=== PATIENT | female | born 1935 | race African-American/Black ===

== ENCOUNTER 2020-10-20 09:55 | Outpatient (REF) | payer MEDICARE, SELFPAY ==
[2020-10-20 12:32] LABS: SARS COV2 IgG Negative (Negative)
== END 2020-10-20 09:56 | disposition home or self-care (01) ==
LOC: HO.HMGCLDS 09:55
PROVIDERS: PCP Internal Medicine; Visit Provider Internal Medicine
DX: Z01.84 Encounter for antibody response examination (principal)
CPT/HCPCS: 36415; 86769

== ENCOUNTER 2021-01-05 06:07 | Outpatient (REF) | payer MEDICARE, SELFPAY ==
[2021-01-05 11:48] LABS: Hematocrit 36.9 % (37-47); Mean Corpuscular HGB Conc 32.5 g/dl (31.0-35.0); Mean Corpuscular Volume 101.4 fL (80-98); Mean Platelet Volume 9.9 fL (9.4-12.3); Platelet Count 239 X10*3/uL (160-400); Red Blood Count 3.64 X10*6/uL (4.20-5.50); Red Cell Distribution Width 11.8 % (11.0-16.0); White Blood Count 3.5 X10*3/uL (4.8-10.8)
[2021-01-05 11:58] LABS: Alanine Aminotransferase 11 U/L (0-31); Albumin Level 4.3 g/dL (3.5-5.0); Alkaline Phosphatase 54 U/L (39-117); Anion Gap 12 (12-20); Aspartate Amino Transferase 16 U/L (5-31); Bilirubin Total 0.5 mg/dL (0.0-1.0); Blood Urea Nitrogen 21 mg/dL (9-16); Calcium 9.4 mg/dL (8.4-10.2); Carbon Dioxide 29 mmol/L (22-29); Chloride 105 mmol/L (96-108); Cholesterol 226 mg/dL; Estimated Glomerular Filt Rate > 60; Glucose Fasting 103 mg/dL (60-99); HDL Cholesterol 56 mg/dL; LDL Cholesterol Calculated 123 mg/dl; Potassium 4.7 mmol/L (3.3-5.1); Sodium 141 mmol/L (135-145); Total Protein 7.8 g/dL (6.5-8.0); Triglycerides 238 mg/dL
[2021-01-05 12:21] LABS: TSH reflex Free T4 1.46 uIU/mL (0.32-4.0)
[2021-01-05 12:48] LABS: Folate > 20.0 ng/mL (> or = 4.0); Vitamin B12 1016 pg/mL (200-900)
== END 2021-01-05 06:08 | disposition home or self-care (01) ==
LOC: HO.HMGCLDS 06:07
PROVIDERS: PCP Internal Medicine; Visit Provider Internal Medicine
DX: E03.9 Hypothyroidism, unspecified (principal); E78.5 Hyperlipidemia, unspecified; I10 Essential (primary) hypertension
CPT/HCPCS: 36415; 80053; 80061; 82607; 82746; 84443; 85027

== ENCOUNTER 2021-01-21 11:49 | Outpatient (REF) | payer MEDICARE, SELFPAY ==
--- NOTE | ~2021-01-21 | XR_ITS ---
EXAMINATION: XR KNEE AP STANDING CLINICAL INFORMATION: Bilateral knee pain COMPARISON: Previous x-ray September 2019 TECHNIQUE: AP bilateral standing view of the knees was obtained. FINDINGS: There is mild varus angulation at the right knee joint. There is bilateral medial femoral tibial joint space narrowing, right greater than left. Soft tissues are unremarkable. XR/XR knee standing BI IMPRESSION: Degenerative changes at the medial femoral tibial joints, right greater than left and mild varus angulation on the right similar to September 2019 exam.
== END 2021-01-21 11:50 | disposition home or self-care (01) ==
LOC: HO.HMGCX 11:49
PROVIDERS: PCP Internal Medicine; Visit Provider Internal Medicine
DX: M25.561 Pain in right knee (principal); M25.562 Pain in left knee
CPT/HCPCS: 73565

== ENCOUNTER 2021-08-14 11:57 | Outpatient (REF) | payer MEDICARE, SELFPAY ==
--- NOTE | ~2021-08-14 | XR_ITS ---
EXAMINATION: XR CHEST CLINICAL INFORMATION: Cough. COMPARISON: Chest 05/21/2020 TECHNIQUE: 2 views of the chest were obtained. FINDINGS: The lungs are well-expanded and clear of acute process. The heart size and pulmonary vascularity is normal. There is mild spondylosis mid and lower dorsal spine. XR/XR chest 2V IMPRESSION: No acute cardiopulmonary process seen.
== END 2021-08-14 11:58 | disposition home or self-care (01) ==
LOC: HO.HMGCX 11:57
PROVIDERS: PCP Internal Medicine; Visit Provider Internal Medicine
DX: R05.9 Cough, unspecified (principal)
CPT/HCPCS: 71046

== ENCOUNTER 2021-08-14 14:13 | Outpatient (REF) | payer MEDICARE, SELFPAY ==
[2021-08-14 14:59] LABS: Influenza A PCR NEGATIVE (Negative); Influenza B PCR NEGATIVE (Negative); Resp Syncy Virus RNA Qual PCR NEGATIVE (Negative); SARS COV2 PCR INHOUSE NEGATIVE (Negative)
== END 2021-08-14 14:14 | disposition home or self-care (01) ==
LOC: HO.LNP 14:13
PROVIDERS: PCP Internal Medicine; Visit Provider Internal Medicine
DX: R05.9 Cough, unspecified (principal); Z20.822 Contact with and (suspected) exposure to COVID-19
CPT/HCPCS: 0241U

== ENCOUNTER 2021-08-18 08:31 | Outpatient (REF) | payer MEDICARE, SELFPAY ==
[2021-08-18 11:45] LABS: Hematocrit 35.7 % (37.0-47.0); Hemoglobin 11.4 g/dl (12.0-16.0); Mean Corpuscular HGB Conc 31.9 g/dl (31.0-35.0); Mean Corpuscular Hemoglobin 32.5 pg (27.0-33.0); Mean Corpuscular Volume 101.7 fL (80.0-98.0); Platelet Count 267 X10*3/uL (160-400); Red Blood Count 3.51 X10*6/uL (4.20-5.50); Red Cell Distribution Width 11.7 % (11.0-16.0); White Blood Count 3.7 X10*3/uL (4.8-10.8)
[2021-08-18 12:06] LABS: B Type Natriuretic Peptide 17 pg/mL (<100)
[2021-08-18 12:21] LABS: Alanine Aminotransferase 10 U/L (0-31); Alkaline Phosphatase 50 U/L (39-117); Anion Gap 11 (12-20); Aspartate Amino Transferase 14 U/L (5-31); Bilirubin Total 0.7 mg/dL (0.0-1.0); Blood Urea Nitrogen 14 mg/dL (9-16); Calcium 9.1 mg/dL (8.4-10.2); Carbon Dioxide 28 mmol/L (22-29); Chloride 106 mmol/L (96-108); Cholesterol 154 mg/dL; Estimated Glomerular Filt Rate > 60; Glucose Fasting 94 mg/dL (60-99); HDL Cholesterol 59 mg/dL; LDL Cholesterol Calculated 70 mg/dl; Potassium 4.2 mmol/L (3.3-5.1); Sodium 141 mmol/L (135-145); Total Protein 6.9 g/dL (6.5-8.0); Triglycerides 127 mg/dL
[2021-08-18 12:29] LABS: TSH reflex Free T4 1.71 uIU/mL (0.32-4.0)
== END 2021-08-18 08:32 | disposition home or self-care (01) ==
LOC: HO.HMGCLDS 08:31
PROVIDERS: PCP Internal Medicine; Visit Provider Internal Medicine
DX: E03.9 Hypothyroidism, unspecified (principal); E78.5 Hyperlipidemia, unspecified; I10 Essential (primary) hypertension; R05.9 Cough, unspecified
CPT/HCPCS: 36415; 80053; 80061; 83880; 84443; 85027

== ENCOUNTER 2022-08-24 13:10 | Outpatient (REF) | payer MEDICARE, SELFPAY ==
[2022-08-24 14:09] LABS: MANUAL DIFF FLAG NO
[2022-08-24 14:21] LABS: Basophils Percent Auto 1.4 % (0-2); Eosinophils Absolute Auto 0.1 X10*3/uL (0.0-0.4); Eosinophils Percent Auto 3.2 % (0-4); Hematocrit 35.7 % (37.0-47.0); Hemoglobin 11.5 g/dl (12.0-16.0); Lymphocytes Absolute Auto 1.3 X10*3/uL (1.2-4.9); Lymphocytes Percent Auto 48.4 % (20-40); Mean Corpuscular HGB Conc 32.2 g/dl (31.0-35.0); Mean Corpuscular Hemoglobin 31.9 pg (27.0-33.0); Mean Corpuscular Volume 98.9 fL (80.0-98.0); Mean Platelet Volume 9.8 fL (9.4-12.3); Monocytes Absolute Auto 0.3 X10*3/uL (0.1-1.2); Monocytes Percent Auto 9.4 % (2-11); Neutrophils Percent Auto 37.6 % (45-73); Platelet Count 228 X10*3/uL (160-400); Red Blood Count 3.61 X10*6/uL (4.20-5.50); Red Cell Distribution Width 11.9 % (11.0-16.0); White Blood Count 2.8 X10*3/uL (4.8-10.8)
[2022-08-24 15:00] LABS: Alanine Aminotransferase 10 U/L (0-31); Albumin Level 4.2 g/dL (3.5-5.0); Alkaline Phosphatase 50 U/L (39-117); Anion Gap 10 (12-20); Aspartate Amino Transferase 17 U/L (5-31); Bilirubin Total 0.5 mg/dL (0.0-1.0); Blood Urea Nitrogen 18 mg/dL (9-16); Carbon Dioxide 28 mmol/L (22-29); Chloride 110 mmol/L (96-108); Cholesterol 177 mg/dL; Estimated Glomerular Filt Rate > 60; Glucose Fasting 93 mg/dL (60-99); HDL Cholesterol 66 mg/dL; LDL Cholesterol Calculated 94 mg/dl; Potassium 4.5 mmol/L (3.3-5.1); Sodium 143 mmol/L (135-145); TSH reflex Free T4 0.84 uIU/mL (0.32-4.0); Triglycerides 89 mg/dL
== END 2022-08-24 13:11 | disposition home or self-care (01) ==
LOC: HO.HMGCLDS 13:10
PROVIDERS: PCP Internal Medicine; Visit Provider Internal Medicine
DX: E03.9 Hypothyroidism, unspecified (principal); E78.5 Hyperlipidemia, unspecified; I10 Essential (primary) hypertension
CPT/HCPCS: 36415; 80053; 80061; 84443; 85025

== ENCOUNTER 2023-02-07 23:45 | Emergency (ER) | payer MEDICARE, SELFPAY ==
[2023-02-07 23:50] VITALS: BP 154/90; BP 155/72; PULSE 74; PULSE 79; RESP 16; TEMP 36.5; O2SAT 100; O2SAT 97; BMI 24.0
--- NOTE | 2023-02-08 | ECG_ITS ---
Test Reason : DIZZINESS Blood Pressure : / mmHG Vent. Rate : 076 BPM Atrial Rate : 076 BPM P-R Int : 192 ms QRS Dur : 084 ms QT Int : 382 ms P-R-T Axes : 066 021 052 degrees QTc Int : 429 ms Normal sinus rhythm Normal ECG No previous ECGs available Referred By: Elier Elder Electronically Signed By:BRIGITTE RAJAN MD
--- NOTE | 2023-02-08 00:11 | ED_ITS ---
HPI - Dizziness General Chief Complaint: Dizziness Stated Complaint: Nausea with Vomiting after eating 1 hour ago Time Seen by Provider: 02/07/23 23:52 Source: patient Mode of arrival: EMS Limitations: no limitations History of Present Illness HPI Narrative: Patient with history of hypertension hyperlipidemia vertigo in the past was working outside in heat all day came home had dinner while sitting started feeling dizzy which she describes as spinning movement with tinnitus on the left ear distant get worse when she moves or sit up vomited 3 times. No chest pain or palpitation patient feels off-balance had history of similar episode in the past but milder did not drink much fluids when she was outside Related Data Home Medications Medication Instructions Recorded Confirmed cholecalciferol (vitamin D3) 125 125 mcg PO DAILY 01/01/21 09/17/22 mcg (5,000 unit) capsule coenzyme Q10 300 mg capsule (Co 300 mg PO DAILY 01/01/21 09/17/22 Q-10) krill oil PO .daily 01/01/21 09/17/22 lactobacillus combination no.8 PO DAILY 01/01/21 09/17/22 [Adult Probiotic] lutein PO DAILY and zeaxanthin vision 01/01/21 09/17/22 complex rhpfaoxq-bwu-rhull acid 300 1 tab PO DAILY 01/01/21 09/17/22 mcg-lycopene 600 mcg-lutein 300 mcg tablet (Centrum Silver Men) zinc acetate 50 mg (zinc) capsule 50 mg PO DAILY 01/01/21 09/17/22 (Galzin) glucosamine synergy PO 04/09/21 09/17/22 bimatoprost 0.01 % eye drops 1 drp ophthalmic (eye) QPM 08/31/21 09/17/22 (Lumigan) carboxymethylcellulose sodium 0.5 1 drp ophthalmic (eye) BID 08/31/21 09/17/22 % eye drops (Refresh Tears) levothyroxine 75 mcg tablet 75 mcg PO DAILY 08/31/21 09/17/22 (Synthroid) timolol maleate 0.5 % eye drops 1 drp ophthalmic (eye) DAILY 08/31/21 09/17/22 ashwagandha root extract 500 mg mg PO 03/08/22 09/17/22 capsule Previous Rx's Medication Instructions Recorded epinephrine 0.3 mg/0.3 mL 0.3 mg (0.3 mL) IM Q4H PRN 08/22/22 injection, auto-injector (EpiPen anaphylaxis #2 ea 2-Constantin) meloxicam 15 mg tablet 15 mg PO DAILY #10 tabs 09/17/22 amlodipine 2.5 mg tablet 2.5 mg PO DAILY #90 tabs 11/26/22 amlodipine 5 mg tablet 5 mg PO DAILY #90 tabs 11/26/22 rosuvastatin 5 mg tablet (Crestor) 5 mg PO DAILY #90 tabs 11/26/22 meclizine 25 mg tablet 25 mg PO TID PRN dizziness #20 tabs 02/08/23 Allergies Allergy/AdvReac Type Severity Reaction Status Date / Time amoxicillin [AMOXICILLIN] Allergy Mild RASH, hives Verified 09/17/22 10:22 rosuvastatin [Crestor] AdvReac Unknown myalgia Verified 09/17/22 10:22 Review of Systems Review of Systems: Yes all other systems are reviewed and are negative PMFSH Past Medical History Medical History Annual physical exam Anxiety Cough Female bladder prolapse HTN (hypertension) Hyperlipidemia Hypothyroidism Kidney cysts Knee pain, bilateral Left nephrolithiasis Liver cyst Lumbar radiculopathy Neutropenia Osteoarthritis Vertigo Social History Social History Housing: House Alcohol intake: current Alcohol intake frequency: 0-2 drinks per day Alcohol type: beer Patient Tobacco Use Status: Former Tobacco user Quit Date: years ago Years Smoked: 20 e-Cigarette/Vaping Use: Never Used Advance Directives: No Advance Directives Information Provided: Yes Current occupational status: retired Cognitive needs: No Hearing needs: No Vision needs: Yes Physical Exam Vital Signs: Vital Signs: Last Vital Signs Temp 97.7 F 02/07/23 23:50 Pulse 79 02/07/23 23:50 Resp 16 02/07/23 23:50 BP 155/72 H 02/07/23 23:50 Pulse Ox 100 02/07/23 23:50 O2 Del Method Room Air 02/07/23 23:50 BMI result Body Mass Index 24.0 Appearance: Alert. Oriented X3. No acute distress. Eyes: PERRLA, No Nystagmus ENT: Pharynx normal. Oral Mucosa dry Neck: Normal inspection. Neck supple. CVS: Normal heart rate and rhythm. Pulses normal. Respiratory: No respiratory distress. Equal air entry bilateral, no wheezing/rales/rhonchi Abdomen: Soft and nontender. Bowel sounds are present, no mass palpable, no CVA tenderness Skin: Skin warm and dry. Normal skin color. Normal skin turgor. Extremities: No lower extremity edema. No calf tenderness Neuro: Oriented X 3. No motor deficit. No sensory deficit.No cerebellar signs , cranial nerves II-XII intact Medications Administered Discontinued Medications Generic Name Dose Route Start Last Admin Trade Name Freq PRN Reason Stop Dose Admin Sodium Chloride 1,000 mls @ 999 mls/hr 02/08/23 00:10 02/08/23 00:18 Ns IV 02/08/23 01:10 999 mls/hr .Q1H1M ONE Administration Meclizine HCl 25 mg 02/08/23 00:10 02/08/23 00:18 Meclizine Hcl 25 Mg Tablet PO 02/08/23 00:11 25 mg ONCE ONE Administration Ondansetron HCl 4 mg 02/08/23 00:10 02/08/23 00:18 Ondansetron Hcl 4 Mg/2 Ml Vial IVPUSH 02/08/23 00:11 4 mg ONCE ONE Administration Medical Decision Making Medical Decision Making [facility] Narrative: Patient with benign positional vertigo and heat exhaustion improved after IV hydration and meclizine able to ambulate in the ER discharge patient home advised to follow with PCP patient has no signs of EXTENDER involvement Differential Diagnosis Heat exhaustion/minute/ Lab Data [facility] Lab Attestation statement: I reviewed the patient's lab results. 02/08/23 00:11 02/08/23 00:11 Labs: Lab Results 02/08/23 02/08/23 02/08/23 Range/Units 00:11 00:11 00:11 WBC 7.1 (4.8-10.8) X10*3/uL RBC 3.51 L (4.20-5.50) X10*6/uL Hgb 11.3 L (12.0-16.0) g/dl Hct 34.0 L (37.0-47.0) % MCV 96.9 (80.0-98.0) fL MCH 32.2 (27.0-33.0) pg MCHC 33.2 (31.0-35.0) g/dl RDW 11.9 (11.0-16.0) % Plt Count 198 (160-400) X10*3/uL MPV 9.2 L (9.4-12.3) fL Immature Gran % (Auto) 0.1 (0.0-0.4) % Neut % (Auto) 72.0 (45-73) % Lymph % (Auto) 16.6 L (20-40) % [place] % (Auto) 8.2 (2-11) % Eos % (Auto) 2.5 (0-4) % Baso % (Auto) 0.6 (0-2) % Lymph # (Auto) 1.2 (1.2-4.9) X10*3/uL [place] # (Auto) 0.6 (0.1-1.2) X10*3/uL Eos # (Auto) 0.2 (0.0-0.4) X10*3/uL Baso # (Auto) 0.0 (0.0-0.2) X10*3/uL Abs Immat Gran (auto) 0.01 (0.00-0.03) X10*3/uL Absolute Neuts (auto) 5.1 (2.0-8.3) x10*3/uL Absolute Nucleated RBC 0.000 (0.0-0.012) X10*3/uL Nucleated RBC % (auto) 0.0 (0.0-0.2) /100WBC Sodium 142 (135-145) mmol/L Potassium 3.7 (3.3-5.1) mmol/L Chloride 108 (96-108) mmol/L Carbon Dioxide 25 (22-29) mmol/L Anion Gap 13 (12-20) BUN 20 H (9-16) mg/dL Creatinine 0.84 (0.5-1.4) mg/dL Estim Creat Clear Calc 42.2 Estimated GFR > 60 Random Glucose 148 H (60-115) mg/dL Calcium 9.1 (8.4-10.2) mg/dL Total Bilirubin 0.4 (0.0-1.0) mg/dL AST 16 (5-31) U/L ALT 13 (0-31) U/L Alkaline Phosphatase 57 (39-117) U/L Total Creatine Kinase 166 H (26-140) U/L Troponin I High Sens < 2.7 (<3.5-17.0) ng/L Total Protein 7.1 (6.5-8.0) g/dL Albumin 4.1 (3.5-5.0) g/dL Independent Interpretation I performed an independent interpretation of an: EKG Interpretation: Normal sinus rhythm heart rate 76 beats per normal interval normal axis no acute ischemic changes impression normal EKG Discharge Plan Discharge Clinical Impression: Benign paroxysmal positional vertigo Patient Disposition: Home, Self-Care Instructions: Benign Paroxysmal Positional Vertigo (ED) Additional Instructions: Drink plenty of fluid Care and cautions as advised Meclizine for dizziness 1 tablet every 8 hours as needed Follow up with PCP Prescriptions: New meclizine 25 mg tablet 25 mg PO TID PRN (Reason: dizziness) Qty: 20 0RF No Action epinephrine [EpiPen 2-Constantin] 0.3 mg/0.3 mL auto-injector 0.3 mg IM Q4H PRN (Reason: anaphylaxis) Qty: 2 0RF rosuvastatin [Crestor] 5 mg tablet 5 mg PO DAILY Qty: 90 3RF amlodipine 2.5 mg tablet 2.5 mg PO DAILY Qty: 90 3RF Rx Instructions: Take daily in addition to 5mg tab = 7.5mg daily amlodipine 5 mg tablet 5 mg PO DAILY Qty: 90 3RF Rx Instructions: take one tab (5mg) in addition to 2.5mg to total 7.5mg daily glucosamine synergy PO levothyroxine [Synthroid] 75 mcg tablet 75 mcg PO DAILY timolol maleate 0.5 % drops 1 drp ophthalmic (eye) DAILY Lumigan 0.01 % drops 1 drp ophthalmic (eye) QPM carboxymethylcellulose sodium [Refresh Tears] 0.5 % drops 1 drp ophthalmic (eye) BID Co Q-10 300 mg capsule 300 mg PO DAILY Galzin 50 mg (zinc) capsule 50 mg PO DAILY cholecalciferol (vitamin D3) 125 mcg (5,000 unit) capsule 125 mcg PO DAILY lactobacillus combination no.8 PO DAILY lutein PO DAILY Centrum Silver Men 300-600-300 mcg tablet 1 tab PO DAILY krill oil PO .daily meloxicam 15 mg tablet 15 mg PO DAILY Qty: 10 0RF ashwagandha root extract 500 mg capsule PO Rx Instructions: 1,000 Interventions: ED Discharge Assessment Last Done: 02/08/23 02:26 Discharge Date/Time: 02/08/23 02:27
[2023-02-08 00:17] LABS: MANUAL DIFF FLAG NO
[2023-02-08 00:18] LABS: Basophils Percent Auto 0.6 % (0-2); Eosinophils Absolute Auto 0.2 X10*3/uL (0.0-0.4); Eosinophils Percent Auto 2.5 % (0-4); Hemoglobin 11.3 g/dl (12.0-16.0); Imm Gran Abs Auto 0.01 X10*3/uL (0.00-0.03); Imm Gran Pct Auto 0.1 % (0.0-0.4); Lymphocytes Absolute Auto 1.2 X10*3/uL (1.2-4.9); Lymphocytes Percent Auto 16.6 % (20-40); Mean Corpuscular HGB Conc 33.2 g/dl (31.0-35.0); Mean Corpuscular Hemoglobin 32.2 pg (27.0-33.0); Mean Corpuscular Volume 96.9 fL (80.0-98.0); Mean Platelet Volume 9.2 fL (9.4-12.3); Monocytes Absolute Auto 0.6 X10*3/uL (0.1-1.2); Monocytes Percent Auto 8.2 % (2-11); Neutrophils Absolute Auto 5.1 x10*3/uL (2.0-8.3); Platelet Count 198 X10*3/uL (160-400); Red Blood Count 3.51 X10*6/uL (4.20-5.50); Red Cell Distribution Width 11.9 % (11.0-16.0); White Blood Count 7.1 X10*3/uL (4.8-10.8)
[2023-02-08] MEDS: Meclizine HCl 25 MG TABLET PO (00:18)
[2023-02-08] MEDS: 0.9 % Sodium Chloride 1,000 ML 999 ML IV (00:18)
[2023-02-08] MEDS: ondansetron HCL 4 MG/2 ML VIAL IVPUSH (00:18)
[2023-02-08 00:41] LABS: Troponin-I High Sensitivity < 2.7 ng/L (<3.5-17.0)
[2023-02-08 00:48] LABS: Alanine Aminotransferase 13 U/L (0-31); Albumin Level 4.1 g/dL (3.5-5.0); Alkaline Phosphatase 57 U/L (39-117); Anion Gap 13 (12-20); Aspartate Amino Transferase 16 U/L (5-31); Bilirubin Total 0.4 mg/dL (0.0-1.0); Blood Urea Nitrogen 20 mg/dL (9-16); Calcium 9.1 mg/dL (8.4-10.2); Carbon Dioxide 25 mmol/L (22-29); Chloride 108 mmol/L (96-108); Creatinine Clr Calc Pharmacy 42.2; Estimated Glomerular Filt Rate > 60; Glucose Random 148 mg/dL (60-115); Potassium 3.7 mmol/L (3.3-5.1); Sodium 142 mmol/L (135-145); Total Protein 7.1 g/dL (6.5-8.0)
--- NOTE | 2023-02-08 00:58 | PC.NURSE ---
20 G iV line placed in L AC, Labs drawn and sent to lab for processing, mask inspector applied, NSR 70-80. EKG completed by director of technology. Patient's son at bedside, call morales placed within patient's reach.
--- NOTE | 2023-02-08 02:09 | MHC.EDTECH ---
Ambulated patient per Dr. Alicia. Patient walked around the Main ER, No C/O dizziness or light headed. Gait was stable.
--- NOTE | 2023-02-08 02:19 | PC.NURSE ---
Fluids infusion complete. airdrop systems technician ambulated patient and reports no dizzinesses. Plan for patient to be discharged. Son at bedside and will transport patient home.
== END 2023-02-08 02:27 | disposition home or self-care (01) ==
PROVIDERS: Emergency Provider Internal Medicine
DX: H81.12 Benign paroxysmal vertigo, left ear (principal); R11.2 Nausea with vomiting, unspecified; I10 Essential (primary) hypertension; E78.5 Hyperlipidemia, unspecified; Z79.02 Long term (current) use of antithrombotics/antiplatelets; Z79.899 Other long term (current) drug therapy; Z87.891 Personal history of nicotine dependence
CPT/HCPCS: 36415; 80053; 82550; 84484; 85025; 93005; 96374; 99284; 99285; J2405

== ENCOUNTER 2023-05-25 11:15 | Outpatient (AMB) | payer MEDICARE, SELFPAY ==
--- NOTE | 2023-05-25 11:32 | MHC.PC.OV ---
Vital Signs 05/25/23 11:33 Height 5 ft 4 in Weight 143 lb BMI 24.5 BP 134/62 Blood Pressure Location Rt brachial Position Sitting Pulse 81 Pulse Source Pulse Oximeter Pulse Oximetry (%) 98 Oxygen Delivery Method Room Air Intake Visit Reasons: Pain in Left Shoulder Intake Note: Pt is here today for a sick visit. Pt c/o pain in L shoulder. Allergies amoxicillin [AMOXICILLIN] Allergy (Mild, Verified 05/25/23 11:39) RASH, hives rosuvastatin [Crestor] Adverse Reaction (Unknown, Verified 05/25/23 11:39) myalgia Medication List - Last Reconciled 05/25/23 by Betty Domingo MD amlodipine 2.5 mg PO DAILY amlodipine 5 mg PO DAILY ashwagandha root extract 1,000 bimatoprost 0.01% (Lumigan) 1 drp ophthalmic (eye) QPM carboxymethylcellulose sodium 0.5% (Refresh Tears) 1 drp ophthalmic (eye) BID cholecalciferol (vitamin D3) 125 mcg PO DAILY coenzyme Q10 (Co Q-10) 300 mg PO DAILY epinephrine (EpiPen 2-Constantin) 0.3 mg (0.3 mL) IM Q4H PRN [glucosamine synergy PO] krill oil PO .daily lactobacillus combination no.8 (Adult Probiotic) PO DAILY levothyroxine (Synthroid) 75 mcg PO DAILY lutein PO DAILY meclizine 25 mg PO TID PRN meloxicam 15 mg PO DAILY [id number] [id number] mcg (Centrum Silver Men) 1 tab PO DAILY rosuvastatin (Crestor) 5 mg PO DAILY timolol maleate 0.5% 1 drp ophthalmic (eye) DAILY zinc acetate (Galzin) 50 mg PO DAILY Tobacco use date assessed: 05/25/23 Fall risk assessment: No Falls in past year Last assessed Fall Risk: 05/25/23 Dental Screening Dental Screen Date: 05/25/23 Did you have a dental visit in the last 12 months?: Yes Did you have a dental problem in the last 6 months where you did not have access to dental care?: No Was dental information given to patient?: Patient has dentist HPI Pain in Left Shoulder HPI Details Pt c/o L shoulder pain worse after the patient did lot of shoveling working in her garden. The pain is worse when patient is laying on the left side or trying to rich overhead or lift. Hypertension is controlled on medications [facility] Medical History Annual physical exam Anxiety Cough Female bladder prolapse HTN (hypertension) Hyperlipidemia Hypothyroidism Kidney cysts Knee pain, bilateral Left nephrolithiasis Liver cyst Lumbar radiculopathy Neutropenia Osteoarthritis Vertigo Social History Housing: House Alcohol intake: current Alcohol intake frequency: 0-2 drinks per day Alcohol type: beer Patient Tobacco Use Status: Former Tobacco user Quit Date: years ago Years Smoked: 20 e-Cigarette/Vaping Use: Never Used Current occupational status: retired Cognitive needs: No Hearing needs: No Vision needs: Yes Questionnaire Thrive Questionnaire Date Thrive assessed: 09/17/22 SIOMARA-7 AMB Questionnaire SIOMARA-7 Date SIOMARA - 7 assessed: 09/17/22 Source: Developed by Drs. Jeff Salter, Korin Chinchilla, Cam Nathan and colleagues, with an educational nancie from [employer]. Review of Systems Const All systems reviewed & are unremarkable except as noted in HPI and below Reports no additional complaints Eyes Reports no additional complaints ENT Reports no additional complaints Card Reports no additional complaints Resp Reports no additional complaints GI Reports no additional complaints Reports no additional complaints Physical exam (Primary Care) Vital Signs: Last Vital Signs Pulse 81 05/25/23 11:33 BP 134/62 05/25/23 11:33 Pulse Ox 98 05/25/23 11:33 Oxygen Delivery Method Room Air 05/25/23 11:33 BMI result Body Mass Index 24.5 Tobacco/Smoking Status: Tobacco use Status Tobacco use date assessed 05/25/23 05/25/23 11:41 Patient Tobacco Use Status Former Tobacco user 05/25/23 11:41 e-Cigarette/Vaping Use Never Used 05/25/23 11:33 Thrive Assessment: Date of Thrive Assessment Date Thrive assessed 09/17/22 05/25/23 11:33 HENMT Head: Yes normal to inspection Neck Neck: Yes supple Resp Effort & Inspection: normal respiratory effort Auscultation: clear to auscultation bilaterally Cardio Rhythm: regular rhythm Heart sounds: S1 normal heart sound present and S2 normal heart sound present Extrem Other: There is significantly decreased range of motion of the left shoulder, anterior and lateral aspect tenderness reproducing the pain ,no soft tissue swelling Assessment and Plan Assessment & Plan (1) Left shoulder pain: Code(s): M25.512 - Pain in left shoulder Plan: Meloxicam 15 mg daily for 2 weeks and referred for physical therapy Orders: Orders PT Evaluation and Treatment Today M25.512 - Pain in left shoulder Medications: New lidocaine 5% leave on most painful area for up to 12 hrs 1 patch topical DAILY 30 ea 0RF Refilled meloxicam 15 mg PO DAILY 20 tabs 0RF Coding Level of Care Code Est Pt Level 3 (21091) Diagnoses Left shoulder pain M25.512
[2023-05-25 11:33] VITALS: BP 134/62; PULSE 81; O2SAT 98; BMI 24.5
== END 2023-05-25 12:27 | disposition home or self-care (01) ==
PROVIDERS: Visit Provider Internal Medicine
DX: M25.512 Pain in left shoulder (principal)
CPT/HCPCS: 99213

== ENCOUNTER 2023-05-26 07:45 | Outpatient (RCR) | payer MEDICARE, SELFPAY ==
--- NOTE | 2023-05-26 09:33 | MHC.PT.EP ---
[facility] [place] Office [place] Office [place] Office [address] [phone] F: [phone] F: [phone] F: [phone] F: [phone] Physical Therapy Plan of Care Date of Evaluation: 05/26/23 Date of Surgery: Diagnosis: L shoulder pain Assessment: Pt is a 87 y/o F with HTN and OA who is referred to PT for eval and treat of L shoulder pain resulting in decreased tolerance for sleeping comfortably, self hygiene activities, managing hair, driving, and reaching above shoulder height secondary to decreased shoulder ROM, decreased shoulder strength, TTP of biceps tendon, and pain. Pt is motivated and is deemed an appropriate candidate to receive skilled PT services in order to achieve her goals and improve her function. Frequency and Duration: The patient will be seen 2x/wk x5wks Short Term Goals: Initiate HEP Improve baseline pain <3/10; initial: 5/10 Skilled Nursing Goals: [place] with HEP Pt will improve SPADI outcome score by at least 13 points; initial: 82/130 Pt will be able to touch the back of her neck with <5/10 pain; initial: 10/10 pain Pt will be able remove something from her back pocket with <5/10 difficulty; initial 9/10 difficulty Treatment Plan: Modalities to reduce pain, spasms and effusion. Manual therapy to restore motion and function. Therapeutic exercise to improve strength and flexibility. Neuromuscular re-education for posture and balance. Therapeutic activities to return to functional activities of daily living. Electronically signed by: Raffaele Matthews PT Please sign and return to therapist. Thank you for your referral.
--- NOTE | 2023-05-30 11:45 | MHC.PT.DC ---
[facility] [place] Office [place] Office [place] Office [address] [facility] [phone] F: [phone] F: [phone] F: [phone] F: [phone] Physical Therapy Discharge Report Diagnosis: L shoulder pain Date of Surgery: Date of Evaluation: 05/26/23 Date of Discharge: 05/30/23 Treatments to Date: 1 Cancellations to Date: No Shows to Date: Discharge Status: Patient Elected to Stop Discharge Summary: . Electronically signed by: Raffaele Matthews PT Please sign and return to therapist. Thank you for your referral.
== END 2023-05-30 11:46 | disposition home or self-care (01) ==
LOC: HO.PTCHIC 07:45
PROVIDERS: PCP Internal Medicine; Visit Provider Internal Medicine
DX: M25.512 Pain in left shoulder (principal)
CPT/HCPCS: 97110; 97161

== ENCOUNTER 2023-08-11 20:42 | Inpatient (IN) | payer MEDICARE, SELFPAY ==
[2023-08-11 20:46] VITALS: BP 120/54; PULSE 92; RESP 16; TEMP 36.4; O2SAT 96; BMI 24.7
--- NOTE | 2023-08-11 20:55 | ED.GENADULT ---
HPI - General Adult General Chief complaint: Dizziness Stated complaint: dizzy, unable to stand, nausea, mult. iss Time Seen by Provider: 08/12/23 00:42 Source: patient Mode of arrival: ambulatory History of Present Illness HPI narrative: 87-year-old female who presents with concerns for dizziness on getting out of bed this afternoon after raking leaves. Patient also complaint of body aches and pain after she braked her yd today. She otherwise denies any fever, chills, nausea, vomiting, abdominal discomfort or urinary symptoms. Related Data Home Medications Medication Instructions Recorded Confirmed cholecalciferol (vitamin D3) 125 125 mcg PO DAILY 01/01/21 05/25/23 mcg (5,000 unit) capsule coenzyme Q10 300 mg capsule (Co 300 mg PO DAILY 01/01/21 05/25/23 Q-10) krill oil PO .daily 01/01/21 05/25/23 lactobacillus combination no.8 PO DAILY 01/01/21 05/25/23 [Adult Probiotic] lutein PO DAILY and zeaxanthin vision 01/01/21 05/25/23 complex tqykmxnt-in-jdzxj 300 mcg-K 60 1 tab PO DAILY 01/01/21 05/25/23 mcg-lycop 600 mcg-lutein 300 mcg tablet (Centrum Silver Men) zinc acetate 50 mg (zinc) capsule 50 mg PO DAILY 01/01/21 05/25/23 (Galzin) glucosamine synergy PO 04/09/21 05/25/23 bimatoprost 0.01 % eye drops 1 drp ophthalmic (eye) QPM 08/31/21 05/25/23 (Lumigan) carboxymethylcellulose sodium 0.5 1 drp ophthalmic (eye) BID 08/31/21 05/25/23 % eye drops (Refresh Tears) levothyroxine 75 mcg tablet 75 mcg PO DAILY 08/31/21 05/25/23 (Synthroid) timolol maleate 0.5 % eye drops 1 drp ophthalmic (eye) DAILY 08/31/21 05/25/23 ashwagandha root extract 500 mg mg PO 03/08/22 05/25/23 capsule Previous Rx's Medication Instructions Recorded epinephrine 0.3 mg/0.3 mL 0.3 mg (0.3 mL) IM Q4H PRN 05/03/22 injection, auto-injector (EpiPen anaphylaxis #2 ea 2-Constantin) amlodipine 2.5 mg tablet 2.5 mg PO DAILY #90 tabs 11/26/22 amlodipine 5 mg tablet 5 mg PO DAILY #90 tabs 11/26/22 rosuvastatin 5 mg tablet (Crestor) 5 mg PO DAILY #90 tabs 11/26/22 meclizine 25 mg tablet 25 mg PO TID PRN dizziness #20 tabs 02/08/23 lidocaine 5 % topical patch 1 patch topical DAILY #30 ea 05/25/23 meloxicam 15 mg tablet 15 mg PO DAILY #20 tabs 05/25/23 Allergies Allergy/AdvReac Type Severity Reaction Status Date / Time amoxicillin [AMOXICILLIN] Allergy Mild RASH, hives Verified 05/25/23 11:39 rosuvastatin [Crestor] AdvReac Unknown myalgia Verified 05/25/23 11:39 Review of Systems Review of Systems: Pertinent positives and negatives as stated in HPI [facility] Past Medical History Source: nursing notes reviewed Medical History Cough Knee pain, bilateral Vertigo HTN (hypertension) Osteoarthritis Kidney cysts Liver cyst Left nephrolithiasis Lumbar radiculopathy Neutropenia Female bladder prolapse Hyperlipidemia Hypothyroidism Anxiety Annual physical exam Social History Social History Housing: House Alcohol intake: current Alcohol intake frequency: does not drink Alcohol type: beer Patient Tobacco Use Status: Former Tobacco user Quit Date: years ago Years Smoked: 20 Smoked in Last 30 Days: No e-Cigarette/Vaping Use: Never Used Use of substances other than those prescribed or required for medical reasons: No Advance Directives: No Advance Directives Information Provided: Yes Current occupational status: retired Cognitive needs: No Hearing needs: No Vision needs: Yes Physical Exam ED Vital Signs: Vital Signs - 24 hr 08/11/23 20:46 08/11/23 23:41 08/12/23 00:11 Temperature 97.6 F 98.1 F 98.2 F Pulse Rate 92 83 74 Respiratory Rate 16 18 16 Blood Pressure 120/54 L 127/68 136/69 Pulse Oximetry 96 98 98 Oxygen Delivery Method Room Air Room Air Room Air 08/12/23 01:46 08/12/23 02:16 08/12/23 02:17 Temperature Pulse Rate 75 88 100 Respiratory Rate Blood Pressure 115/70 128/58 L 124/47 L Pulse Oximetry Oxygen Delivery Method BMI result Body Mass Index 24.7 VITAL SIGNS: Reviewed. GENERAL: Well developed, well nourished, in no acute distress. HEAD: Normocephalic/atraumatic EYES: PERRLA, EOMI EARS: Ext canals without abnormality NOSE: Nares patent bilateral OROPHARYNX: no oral lesions noted, posterior pharynx clear NECK: Supple, no adenopathy LUNGS: Normal breath sounds. No adventitious sounds or accessory muscle use. SpO2<98> CARDIOVASCULAR: Regular rate and rhythm without noted murmurs ABDOMEN: Soft, non-tender, non-distended with bowel sounds. MUSCULOSKELETAL: No tenderness, deformities, or effusions noted on gross inspection. EXTREMITIES: No cyanosis, clubbing or edema. SKIN: Inspection of the skin reveals no rashes NEUROLOGIC: Alert and oriented x 4. Strength and sensation to light touch were grossly intact x 4, no facial asymmetry, no pronator drift, cranial nerves 2-12 are grossly intact. Course Course Course Narrative: This is a rapid medical exam: Additional HPI, ROS, PE not included below will be deferred to primary provider. Patient is an 87-year-old female with history of HTN, vertigo, HLD, hypothyroid, anemia presenting to the emergency department with feeling lightheaded after doing yd work today. Reports nausea but denies vomiting or diarrhea. Complains of generalized body aches and feeling unsteady. She denies headache or room spinning. States she has not been eating or drinking well today. Plan: EKG, labs, UA, swab for flu/covid Medical Decision Making Medical Decision Making MDM Narrative: 87-year-old female with history and clinical presentation of chronic vertigo and has had prior prescription for meclizine, however will rule out infection/anemia/electrolyte/arrhythmia abnormalities, will evaluate orthostatics. Patient is nonfocal. I reviewed all investigations and hematologic indices do not demonstrate any leukocytosis, there is a stable normocytic anemia and no thrombocytopenia. Chemistry indices are grossly within normal limits, there is a very mild low sodium but otherwise no ZOE or other electrolyte derangements. Liver enzymes are within normal limits. Urinalysis not significant for UTI and is chronically positive for blood. Viral testing negative for influenza/COVID/RSV. Low clinical suspicion for neurologic etiology but no evidence to suggest infection/anemia or electrolyte abnormalities. Given patient's age and questionable EKG (though challenging artifact) decided to add a troponin level despite being asymptomatic for chest pain as well as getting orthostatics and repeat EKG. 0245: Received a call from lab informing me that patient's troponin-[id number]. Rpt EKG no STEMI but t-wave inversions in lateral leads. 0250: I discussed case with cardiology who agrees with heparin and trending Troponins I discussed all results and findings with the patient at bedside. 0310: I discussed case with inpatient hospitalist who accepts admission. Differential Diagnosis Differential Diagnoses: The differential diagnosis associated with the presentation includes Please see the discussion above Admission/Observation Consideration of admission/observation: Escalation of care including admission/observation considered Please see the discussion above Consult Healthcare Provider Management of the patient was discussed with: Hospitalist and [employer] Out Planner Please see the discussion above Lab Data MDM Lab Attestation statement: I reviewed the patient's lab results. Please see the discussion above 08/11/23 21:18 08/11/23 21:18 Labs: Lab Results 08/11/23 08/11/23 08/12/23 Range/Units 21:17 21:18 01:39 WBC 4.9 (4.8-10.8) X10*3/uL RBC 3.52 L (4.20-5.50) X10*6/uL Hgb 11.3 L (12.0-16.0) g/dl Hct 33.7 L (37.0-47.0) % MCV 95.7 (80.0-98.0) fL MCH 32.1 (27.0-33.0) pg MCHC 33.5 (31.0-35.0) g/dl RDW 11.7 (11.0-16.0) % Plt Count 203 (160-400) X10*3/uL MPV 8.8 L (9.4-12.3) fL Immature Gran % (Auto) 0.2 (0.0-0.4) % Neut % (Auto) 76.3 H (45-73) % Lymph % (Auto) 13.2 L (20-40) % [place] % (Auto) 8.7 (2-11) % Eos % (Auto) 0.8 (0-4) % Baso % (Auto) 0.8 (0-2) % Lymph # (Auto) 0.7 L (1.2-4.9) X10*3/uL [place] # (Auto) 0.4 (0.1-1.2) X10*3/uL Eos # (Auto) 0.0 (0.0-0.4) X10*3/uL Baso # (Auto) 0.0 (0.0-0.2) X10*3/uL Abs Immat Gran (auto) 0.01 (0.00-0.03) X10*3/uL Absolute Neuts (auto) 3.8 (2.0-8.3) x10*3/uL Absolute Nucleated RBC 0.000 (0.0-0.012) X10*3/uL Nucleated RBC % (auto) 0.0 (0.0-0.2) /100WBC Sodium 133 L (135-145) mmol/L Potassium 4.7 D (3.3-5.1) mmol/L Chloride 99 (96-108) mmol/L Carbon Dioxide 26 (22-29) mmol/L Anion Gap 13 (12-20) BUN 23 H (9-16) mg/dL Creatinine 0.73 (0.5-1.4) mg/dL Estim Creat Clear Calc 48.6 Estimated GFR > 60 Random Glucose 121 H (60-115) mg/dL Calcium 9.4 (8.4-10.2) mg/dL Total Bilirubin 0.4 (0.0-1.0) mg/dL AST 31 (5-31) U/L ALT 12 (0-31) U/L Alkaline Phosphatase 48 (39-117) U/L Troponin I High Sens 4069.1 H* D (<3.5-17.0) ng/L Total Protein 7.8 (6.5-8.0) g/dL Albumin 4.2 (3.5-5.0) g/dL TSH 1.33 (0.32-4.0) uIU/mL Urine Color Yellow Urine Appearance Clear Urine pH 6.5 (5.0-9.0) Ur Specific [place] 1.010 (1.005-1.025) Urine Protein Negative (Neg-Trace) mg/dL Urine Glucose (UA) Negative (Negative) mg/dL Urine Ketones Negative (Negative) mg/dL Urine Blood Moderate (2+) H (Negative) Urine Nitrite Negative (Negative) Ur Leukocyte Esterase Negative (Negative) Urine RBC 6-10 H (0-2) /HPF Urine WBC 0-5 (0-5) /HPF Ur Squamous Epith Cells 0-2 (0-2) /HPF Urine Bacteria 4+ (None Seen) Hyaline Casts 0-2 (0-2) /LPF Influenza Type A (PCR) NEGATIVE (Negative) Influenza Type B (PCR) NEGATIVE (Negative) RSV RNA Qual (PCR) NEGATIVE (Negative) SARS-CoV-2 RNA (RT-PCR) NEGATIVE (Negative) Independent Interpretation I performed an independent interpretation of an: EKG Interpretation: Normal sinus rhythm, HR-82, no STEMI, RI/QRS/QTC are within normal limits. External Record Review External record reviewed: Outpatient record, Prior outpatient labs and Prior outpatient radiology Chronic Conditions Patient?s care impacted by: Hypertension Critical Care Time Critical Care Time Critical Care Time: Yes Total Critical Care Time: 60 Attestation: I personally attest to this time spent taking care of the patient. Discharge Plan Discharge Clinical Impression: Non-ST elevation OR (NSTEMI), Dizziness Patient Disposition: Admitted As Inpatient Prescriptions: No Action epinephrine [EpiPen 2-Constantin] 0.3 mg/0.3 mL auto-injector 0.3 mg IM Q4H PRN (Reason: anaphylaxis) Qty: 2 0RF rosuvastatin [Crestor] 5 mg tablet 5 mg PO DAILY Qty: 90 3RF amlodipine 2.5 mg tablet 2.5 mg PO DAILY Qty: 90 3RF Rx Instructions: Take daily in addition to 5mg tab = 7.5mg daily amlodipine 5 mg tablet 5 mg PO DAILY Qty: 90 3RF Rx Instructions: take one tab (5mg) in addition to 2.5mg to total 7.5mg daily meclizine 25 mg tablet 25 mg PO TID PRN (Reason: dizziness) Qty: 20 0RF glucosamine synergy PO levothyroxine [Synthroid] 75 mcg tablet 75 mcg PO DAILY timolol maleate 0.5 % drops 1 drp ophthalmic (eye) DAILY Lumigan 0.01 % drops 1 drp ophthalmic (eye) QPM carboxymethylcellulose sodium [Refresh Tears] 0.5 % drops 1 drp ophthalmic (eye) BID Co Q-10 300 mg capsule 300 mg PO DAILY Galzin 50 mg (zinc) capsule 50 mg PO DAILY cholecalciferol (vitamin D3) 125 mcg (5,000 unit) capsule 125 mcg PO DAILY lactobacillus combination no.8 PO DAILY lutein PO DAILY Centrum Silver Men 300-600-300 mcg tablet 1 tab PO DAILY krill oil PO .daily ashwagandha root extract 500 mg capsule PO Rx Instructions: 1,000 meloxicam 15 mg tablet 15 mg PO DAILY Qty: 20 0RF lidocaine 5 % adhesive patch,medicated 1 patch topical DAILY Qty: 30 0RF Rx Instructions: leave on most painful area for up to 12 hrs
--- NOTE | 2023-08-11 20:57 | ECG_ITS ---
Test Reason : CHEST/BACK PAIN Blood Pressure : / mmHG Vent. Rate : 082 BPM Atrial Rate : 082 BPM P-R Int : 176 ms QRS Dur : 082 ms QT Int : 374 ms P-R-T Axes : 055 010 037 degrees QTc Int : 436 ms Normal sinus rhythm Nonspecific ST and T wave abnormality Abnormal ECG When compared with ECG of 08-FEB-2023 00:03, ST elevation now present in Anterolateral leads Nonspecific T wave abnormality, worse in Lateral leads Referred By: Monika Vargas Electronically Signed By:BRIGITTE RAJAN MD
[2023-08-11 21:23] LABS: MANUAL DIFF FLAG NO
[2023-08-11 21:25] LABS: Basophils Percent Auto 0.8 % (0-2); Eosinophils Percent Auto 0.8 % (0-4); Hematocrit 33.7 % (37.0-47.0); Hemoglobin 11.3 g/dl (12.0-16.0); Imm Gran Abs Auto 0.01 X10*3/uL (0.00-0.03); Imm Gran Pct Auto 0.2 % (0.0-0.4); Lymphocytes Absolute Auto 0.7 X10*3/uL (1.2-4.9); Lymphocytes Percent Auto 13.2 % (20-40); Mean Corpuscular HGB Conc 33.5 g/dl (31.0-35.0); Mean Corpuscular Hemoglobin 32.1 pg (27.0-33.0); Mean Corpuscular Volume 95.7 fL (80.0-98.0); Mean Platelet Volume 8.8 fL (9.4-12.3); Monocytes Absolute Auto 0.4 X10*3/uL (0.1-1.2); Monocytes Percent Auto 8.7 % (2-11); Neutrophils Absolute Auto 3.8 x10*3/uL (2.0-8.3); Neutrophils Percent Auto 76.3 % (45-73); Platelet Count 203 X10*3/uL (160-400); Red Blood Count 3.52 X10*6/uL (4.20-5.50); Red Cell Distribution Width 11.7 % (11.0-16.0); White Blood Count 4.9 X10*3/uL (4.8-10.8)
--- NOTE | 2023-08-11 21:25 | PC.NURSE ---
Pt ambulating in the waiting room with no difficulties
[2023-08-11 21:43] LABS: Alanine Aminotransferase 12 U/L (0-31); Albumin Level 4.2 g/dL (3.5-5.0); Alkaline Phosphatase 48 U/L (39-117); Anion Gap 13 (12-20); Aspartate Amino Transferase 31 U/L (5-31); Bilirubin Total 0.4 mg/dL (0.0-1.0); Blood Urea Nitrogen 23 mg/dL (9-16); Calcium 9.4 mg/dL (8.4-10.2); Carbon Dioxide 26 mmol/L (22-29); Chloride 99 mmol/L (96-108); Creatinine Clr Calc Pharmacy 48.6; Estimated Glomerular Filt Rate > 60; Glucose Random 121 mg/dL (60-115); Potassium 4.7 mmol/L (3.3-5.1); Sodium 133 mmol/L (135-145); Total Protein 7.8 g/dL (6.5-8.0)
[2023-08-11 22:01] LABS: Influenza A PCR NEGATIVE (Negative); Influenza B PCR NEGATIVE (Negative); Resp Syncy Virus RNA Qual PCR NEGATIVE (Negative); SARS COV2 PCR INHOUSE NEGATIVE (Negative)
[2023-08-11 23:41] VITALS: BP 127/68; PULSE 83; RESP 18; TEMP 36.7; O2SAT 98
[2023-08-12 00:11] VITALS: BP 136/69; PULSE 74; RESP 16; TEMP 36.8; O2SAT 98
--- NOTE | 2023-08-12 00:14 | PC.NURSE ---
pt ambulatory with steady gait. nsr on heart monitor. pt changed into hospital gown. vss. pt reports sx resolved however intermittent dizziness with position changes. pt previously prescribed meclizine for similar sx however pt stated shes afraid to try this medication as shes unsure if shell experience side effects. awaiting ua sample and primary eval by ed provider. call morales within reach.
[2023-08-12 01:46] VITALS: BP 115/70; PULSE 75
[2023-08-12 01:48] LABS: Appearance Urine Clear; Color Urine Yellow; Glucose Urine UA Negative (Negative); Leukocyte Esterase Urine Negative (Negative); Nitrite Urine Negative (Negative); PH 6.5 (5.0-9.0); UMIC TRIGGER UACC YES; Urine Blood Moderate (2+) (Negative); Urine Ketones Negative (Negative); Urine Protein Negative (Neg-Trace)
[2023-08-12 01:50] LABS: Bacteria Urine 4+ (None Seen); Hyaline Casts Urine 0-2 /LPF (0-2); Squamous Epithelial Cell Urine 0-2 /HPF (0-2); WBC Urine 0-5 /HPF (0-5)
--- NOTE | 2023-08-12 01:54 | ECG_ITS ---
Test Reason : REPEAT EKG Blood Pressure : / mmHG Vent. Rate : 073 BPM Atrial Rate : 073 BPM P-R Int : 172 ms QRS Dur : 084 ms QT Int : 358 ms P-R-T Axes : 056 -01 012 degrees QTc Int : 394 ms Normal sinus rhythm Inferior infarct , age undetermined Abnormal ECG When compared with ECG of 11-AUG-2023 21:08, Nonspecific T wave abnormality, worse in Inferior leads Referred By: Sujey Gong Electronically Signed By:BRIGITTE RAJAN MD
[2023-08-12 02:16] VITALS: BP 128/58; PULSE 88
[2023-08-12 02:17] VITALS: BP 124/47; PULSE 100
[2023-08-12 02:27] LABS: Thyroid Stimulating Hormone 1.33 uIU/mL (0.32-4.0)
--- NOTE | 2023-08-12 03:08 | PC.NURSE ---
dr sandra notified this rn of nstemi; iv established. labs sent. pt denies cp/sob/n/v/d/abd pain/dizziness.
[2023-08-12 03:09] VITALS: BP 130/70; PULSE 83; RESP 18; O2SAT 97; BMI 24.7
[2023-08-12 03:15] LABS: INTERNATIONAL NORM RATIO 0.9 (0.9-1.1); Prothrombin Time 11.3 SEC (11.1-13.3)
[2023-08-12 03:18] LABS: Partial Thromboplastin Time 22.6 SEC (26.0-36.4)
[2023-08-12] MEDS: hydrOXYzine HCL 25 MG TABLET PO (03:18)
[2023-08-12 03:25] LABS: Hematocrit 32.9 % (37.0-47.0); Hemoglobin 11.3 g/dl (12.0-16.0); Mean Corpuscular HGB Conc 34.3 g/dl (31.0-35.0); Mean Corpuscular Hemoglobin 32.4 pg (27.0-33.0); Mean Corpuscular Volume 94.3 fL (80.0-98.0); Mean Platelet Volume 9.3 fL (9.4-12.3); Platelet Count 206 X10*3/uL (160-400); Red Blood Count 3.49 X10*6/uL (4.20-5.50); Red Cell Distribution Width 11.7 % (11.0-16.0); White Blood Count 4.4 X10*3/uL (4.8-10.8)
[2023-08-12] MEDS: Heparin Sodium,Porcine 5,000 UNIT/ML VIAL 3900 UNIT IVPUSH (03:26)
--- NOTE | 2023-08-12 03:32 | P.HPHOSP_ITS ---
History of Present Illness Date of Service: 08/12/23 Chief Complaint: shoulder pain, dizzy 87F PMH htn, hypothyroid, glaucoma, hld, presented with shoulder pain and dizziness. patient was raking her leaves for about 2 hrs. started to feel very sore on left shoulder, so switched sides and quickly became very sore on right as well. this was accompanied by dizziness so patient came for evaluation, found to have troponin of 4000 and lateral T wave inversions. denies chest pain, sob, fever, chills. Review of Systems 2 Review of Systems: Yes all other systems are reviewed and are negative [facility] Medical History Cough Knee pain, bilateral Vertigo HTN (hypertension) Osteoarthritis Kidney cysts Liver cyst Left nephrolithiasis Lumbar radiculopathy Neutropenia Female bladder prolapse Hyperlipidemia Hypothyroidism Anxiety Annual physical exam Social History Housing: House Alcohol intake: current Alcohol intake frequency: does not drink Alcohol type: beer Patient Tobacco Use Status: Former Tobacco user Quit Date: years ago Years Smoked: 20 Smoked in Last 30 Days: No e-Cigarette/Vaping Use: Never Used Use of substances other than those prescribed or required for medical reasons: No Advance Directives: No Advance Directives Information Provided: Yes Current occupational status: retired Cognitive needs: No Hearing needs: No Vision needs: Yes Meds Allergies Allergy/AdvReac Type Severity Reaction Status Date / Time amoxicillin [AMOXICILLIN] Allergy Mild RASH, hives Verified 05/25/23 11:39 rosuvastatin [Crestor] AdvReac Unknown myalgia Verified 05/25/23 11:39 Active Medications: Current Medications Heparin Sodium (Porcine) (Heparin Sodium,Porcine 5,000 Unit/Ml Vial) 2,600 unit 40 unit/kg (2600 unit) IVPUSH PROTOCOL BOLUS PRN; Protocol PRN Reason: 40 unit/kg - Heparin Protocol Heparin Sodium (Porcine) (Heparin Sodium,Porcine 5,000 Unit/Ml Vial) 5,200 unit 80 unit/kg (5200 unit) IVPUSH PROTOCOL BOLUS PRN; Protocol PRN Reason: 80 unit/kg - Heparin Protocol Heparin Sodium/Sodium Chloride (Heparin Sodium,Porcine/1/2ns) 25,000 unit in 250 mls @ 0 mls/hr IVCONT .Q0M PAT; Protocol Home Medications Medication Instructions Recorded Confirmed Last Taken Type coenzyme Q10 300 mg capsule (Co 300 mg PO DAILY 01/01/21 08/12/23 Unknown History Q-10) lutein PO DAILY and zeaxanthin vision 01/01/21 05/25/23 Unknown History complex meyfqypy-ih-qbxpb 300 mcg-K 60 1 tab PO DAILY 01/01/21 08/12/23 Unknown History mcg-lycop 600 mcg-lutein 300 mcg tablet (Centrum Silver Men) glucosamine synergy PO 04/09/21 05/25/23 Unknown History bimatoprost 0.01 % eye drops 1 drp ophthalmic (eye) QPM 08/31/21 08/12/23 Unknown History (Lumigan) carboxymethylcellulose sodium 0.5 1 drp ophthalmic (eye) BID 08/31/21 08/12/23 Unknown History % eye drops (Refresh Tears) levothyroxine 75 mcg tablet 75 mcg PO DAILY 08/31/21 08/12/23 Unknown History (Synthroid) timolol maleate 0.5 % eye drops 1 drp ophthalmic (eye) DAILY 08/31/21 08/12/23 Unknown History Physical Exam 2 Vital Signs and Narrative: Vital Signs: Last Vital Signs Temp 98.2 F 08/12/23 00:11 Pulse 83 08/12/23 03:09 Resp 18 08/12/23 03:09 BP 130/70 08/12/23 03:09 Pulse Ox 97 08/12/23 03:09 O2 Del Method Room Air 08/12/23 03:09 BMI result Body Mass Index 24.7 General: AO X 3, no acute distress Resp: CTA bilateral, no accessory muscles used CVS: S1,S2,RRR GI: soft, non tender, non distended Neuro: motor grossly intact, alert Psych: appropriate affect, appropriate insight Results Labs 08/12/23 03:21 08/11/23 21:18 Labs: Laboratory Results - last 24 hr 08/11/23 08/11/23 08/12/23 21:17 21:18 01:39 MCV 95.7 MCH 32.1 MCHC 33.5 RDW 11.7 Plt Count 203 MPV 8.8 L Immature Gran % (Auto) 0.2 Neut % (Auto) 76.3 H Lymph % (Auto) 13.2 L [place] % (Auto) 8.7 Eos % (Auto) 0.8 Baso % (Auto) 0.8 Lymph # (Auto) 0.7 L [place] # (Auto) 0.4 Eos # (Auto) 0.0 Baso # (Auto) 0.0 Abs Immat Gran (auto) 0.01 Absolute Neuts (auto) 3.8 Absolute Nucleated RBC 0.000 Nucleated RBC % (auto) 0.0 PT INR APTT Anion Gap 13 Estim Creat Clear Calc 48.6 Estimated GFR > 60 Random Glucose 121 H Calcium 9.4 Total Bilirubin 0.4 AST 31 ALT 12 Alkaline Phosphatase 48 Total Creatine Kinase 272 H Total Protein 7.8 Albumin 4.2 TSH 1.33 Urine Color Yellow Urine Appearance Clear Urine pH 6.5 Ur Specific [place] 1.010 Urine Protein Negative Urine Glucose (UA) Negative Urine Ketones Negative Urine Blood Moderate (2+) H Urine Nitrite Negative Ur Leukocyte Esterase Negative Urine RBC 6-10 H Urine WBC 0-5 Ur Squamous Epith Cells 0-2 Urine Bacteria 4+ Hyaline Casts 0-2 Influenza Type A (PCR) NEGATIVE Influenza Type B (PCR) NEGATIVE RSV RNA Qual (PCR) NEGATIVE SARS-CoV-2 RNA (RT-PCR) NEGATIVE 08/12/23 08/12/23 03:06 03:21 MCV 94.3 MCH 32.4 MCHC 34.3 RDW 11.7 Plt Count 206 MPV 9.3 L Immature Gran % (Auto) Neut % (Auto) Lymph % (Auto) [place] % (Auto) Eos % (Auto) Baso % (Auto) Lymph # (Auto) [place] # (Auto) Eos # (Auto) Baso # (Auto) Abs Immat Gran (auto) Absolute Neuts (auto) Absolute Nucleated RBC 0.000 Nucleated RBC % (auto) 0.0 PT 11.3 INR 0.9 APTT 22.6 L Anion Gap Estim Creat Clear Calc Estimated GFR Random Glucose Calcium Total Bilirubin AST ALT Alkaline Phosphatase Total Creatine Kinase Total Protein Albumin TSH Urine Color Urine Appearance Urine pH Ur Specific [place] Urine Protein Urine Glucose (UA) Urine Ketones Urine Blood Urine Nitrite Ur Leukocyte Esterase Urine RBC Urine WBC Ur Squamous Epith Cells Urine Bacteria Hyaline Casts Influenza Type A (PCR) Influenza Type B (PCR) RSV RNA Qual (PCR) SARS-CoV-2 RNA (RT-PCR) Assessment and Plan (1) Dizziness: Status: Acute Plan 87F PMH htn, hypothyroid, glaucoma, hld, presented with shoulder pain and dizziness NSTEMI ?[place] iv heparin, asa, statin, echo, cardio eval htn amlodipine glaucoma continue eye drops hypothyroid synthroid dvt prophylaxis - on heparin iv full code patient with nstemi will need 48hrs iv heparin, possible cath, therefore, expected to need atleast 2 midnights inpatient Quality Stroke Does the patient have a stroke diagnosis?: No VTE Prior VTE?: No VTE Risk Level:: Medical - moderate - high VTE Device Contraindication: Treatment Not Indicated VTE Drug Contraindication: N/A - Med Ordered
[2023-08-12] MEDS: Heparin Sodium,Porcine/1/2NS 25,000 UNIT/250 ML IV.SOLN 7.84 UNIT IVCONT (03:40)
[2023-08-12 03:49] LABS: Troponin-I High Sensitivity 2928.9 ng/L (<3.5-17.0)
--- NOTE | 2023-08-12 04:12 | PC.NURSE ---
Addendum entered by Samira Carmen 08/12/23 04:22: critical trop notified to Dr. Smith. Original Note: heparin bolus given per nov. heparin drip infusing per protocol. ptt order entered to be drawn 6 hours from start (0940). pt resting comfortably in bed. call morales within reach.
[2023-08-12] MEDS: Levothyroxine Sodium 75 MCG TABLET PO (05:46)
--- NOTE | 2023-08-12 07:00 | CA_ITS ---
Transthoracic Echocardiogram Patient (Last, First, Middle): Elise Brandon E Gender: Female Date of : 1935 Age: 87 Procedure Date: 08/12/2023 Procedure Type: Transthoracic Echocardiogram Location: ER Height: 162.56 cm Weight: 63.5 kg BSA: 1.68 m2 Heart Rate: 75 bpm BP: 107 / 56 mmHg Center Manager: SB Referring MD: Sujey Gong MD Symptoms: NSTEMI Study Quality: Adequate ECG Rhythm: Sinus Conclusions: - 1. Moderate LV systolic dysfunction with apical and mid ventricular wall motion abnormality multiple territories most consistent with stress-induced cardiomyopathy with hyperkinesis of the basal segment leading to LVOT obstruction at rest with a peak gradient of 32 mmHg with mild focal hypertrophy of the basal septum 2. Normal cardiac valvular Doppler 3. No gross pericardial effusion Findings Procedure Information Contrast agent, definity, is being given per protocol without apparent complications. Left Ventricle Normal left ventricular cavity size. There is normal left ventricular wall thickness. The left ventricular systolic function is moderately decreased. The visually estimated ejection fraction is between 35-40%. There is dynamic left ventricular outflow tract obstruction. There is systolic anterior motion of the mitral valve. Spectral Doppler is indicative of an impaired relaxation filling pattern. There is mild septal asymmetric hypertrophy. Resting gradient across LVOT is 32 mmHg which increases to 94 mmHg with Valsalva maneuver. Most likely cause of LVOT obstruction is hyperkinesis of the basal segments Wall Motion Rest Echo Findings The entire apex, the mid anterior, mid inferior, mid anterolateral, mid inferoseptal, mid anteroseptal, and mid inferolateral segments are akinetic. The basal inferior, basal anterior, basal anterolateral, basal inferoseptal, basal anteroseptal, and basal inferolateral segments are hyperkinetic. Right Ventricle Normal right ventricular cavity size and systolic function. Atria The left atrium is normal in size. Interatrial shunt cannot be excluded. The right atrium is normal in size. Aortic Valve Normal aortic valve structure and function. There is no aortic valve stenosis. There is no aortic valve regurgitation. Mitral Valve There is mild anterior and posterior mitral leaflet thickening. There is mild mitral annular calcification. There is trace mitral valve regurgitation. There is no mitral valve stenosis. Pulmonic Valve The pulmonic valve is likely normal. There is trace pulmonic valve regurgitation. Tricuspid Valve Normal tricuspid valve structure. There is trace tricuspid valve regurgitation. The right ventricular systolic pressure is normal. The right ventricular systolic pressure is 19 mmHg. Normal right atrial pressure. There is no evidence of pulmonary hypertension. Great Vessels All visible segments of the aorta are normal in size. The pulmonary artery was not well visualized. Venous The inferior vena cava is normal in size and collapses greater than 50% with inspiration. Pericardium/Pleural There is no evidence of pericardial effusion. Prior Study Comparison No prior study available for comparison. Measurements 2D Linear Measurements IVSd: 1.26 0.6-0.9/0.6-1.0 cm LVIDd: 4.56 3.9-5.3/4.2-5.9 cm LVIDd Index: 2.71 2.4-3.2/2.2-3.1 cm/m2 LVIDs: 2.79 2.0-3.6 cm LVPWd: 0.84 0.7-1.1 cm LA Diam: 2.60 2.7-3.8/3.0-4.0 cm LAIDs Index: 1.55 1.5-2.3 cm/m2 LV Mass: 209.03 67-162/88-224 g LV Mass Index: 124.42 43-95/49-115 g/m2 LVOT Diam: 2.20 3.0+(-)1.3 cm 2D Systolic Function EF 4C: 37.20 >55% EF 2C: 38.10 >55% EF BiP: 36.60 >55% Mitral Valve MV Pk E: 0.31 MV PK A: 0.80 E/A: 0.40 Aortic Valve AoV Pk Jt: 1.33 AoV Pk Grad: 7.00 IRVIN: 3.86 LVOT LVOT Pk Jt: 1.42 LVOT Mn Jt: 1.01 LVOT VTI: 0.26 LVOT Pk Grad: 8.00 LVOT Mn Grad: 5.00 LVOT Diam: 2.20 LVOT Area: 3.80 Diastolic Function MV Pk E: 0.31 MV Pk A: 0.80 E/A: 0.40 Right Ventricle TAPSE (mm): 22.00 Tricuspid Valve TR Pk Jt: 2.00 TR Pk Grad: 16.00 RA Press: 3.00 RVSP: 19.00 Great Vessels Aorta Sinus of Valsalva: 3.00 2.0-3.5 cm Ao Asc: 2.70 2.1-3.4 cm Pulmonary Valve PV Pk Jt: 0.77 Peak PV Grad: 2.00 Updated in Other Vendor System with Status of Final Tano Tyson MD electronically signed on 08/12/2023 1:15:09 PM with status of Final
--- NOTE | 2023-08-12 09:27 | PHA.MEDREC ---
Pharmacy Consult ? Medication Reconciliation Pharmacy has completed the medication reconciliation.
--- NOTE | 2023-08-12 09:32 | PC.NURSE ---
patient remains on the heparin drip, cardiology met with patient/echocardiogram in with patient at this time. phlebotomy at bedside to obtain labwork. ate breakfast, stating she does not have much of an appetite this morning. ambulates with steady gait independently to the bathroom, provided with sanitary pad and wipes to wash up in the bathroom. offering no complaints at this time, call morales within reach.
[2023-08-12 09:56] LABS: Estimated Average Glucose 103 mg/dL; Hemoglobin A1C 99.7778 umol/L; Hemoglobin A1c % 5.2 % (<6.0)
--- NOTE | 2023-08-12 10:00 | PM.DS ---
DS: Providers Provider Date of Service: 08/12/23 Date of admission: 08/12/23 03:32 Primary care physician: Betty Domingo MD Consults: 08/12/23 03:31 Consult to Cardiology Routine Consulting Provider: [facility] [place] [facility] Reason for consultation: nstemi Has provider been notified: Yes DS: Diagnosis Discharge Diagnosis (1) Dizziness: Status: Acute DS: Summary Hospital Course Hospital Course: Admission HPI Chief Complaint: shoulder pain, dizzy 87F PMH htn, hypothyroid, glaucoma, hld, presented with shoulder pain and dizziness. patient was raking her leaves for about 2 hrs. started to feel very sore on left shoulder, so switched sides and quickly became very sore on right as well. this was accompanied by dizziness so patient came for evaluation, found to have troponin of 4000 and lateral T wave inversions. denies chest pain, sob, fever, chills. Hsopital course: Patient was admitted for acute NSTEM with very high tropnin I, initially 4000 , now 2000, ECG non-specific ST elevation on multile leads. Working diagnosis is takotsubo cardiomyopathy vs acute plaque rupture. She's been medically treated with IV heparin, metoprolol, statin, and ASA. The crane service technician (Dr. Tyson) advises further testing with cardiac cath, and therefore she's been transferred to [facility] for this. Time Attestation Discharge coordination time: Greater than 30 minutes Quality: Safe Use of Opioids Does Pt have an Active Cancer Diagnosis on the Problem List?: No Quality: Stroke Does the patient have a stroke diagnosis?: No Physical Exam Vital Signs: Vital Signs: Last Vital Signs Temp 98.2 F 08/12/23 00:11 Pulse 83 08/12/23 03:09 Resp 18 08/12/23 03:09 BP 130/70 08/12/23 03:09 Pulse Ox 97 08/12/23 03:09 O2 Del Method Room Air 08/12/23 03:09 BMI result Body Mass Index 24.7 DS: Data Data Completed and Pending Labs on day of discharge: Laboratory Results - last 24 hr 08/11/23 08/11/23 08/12/23 21:17 21:18 01:39 WBC 4.9 RBC 3.52 L Hgb 11.3 L Hct 33.7 L MCV 95.7 MCH 32.1 MCHC 33.5 RDW 11.7 Plt Count 203 MPV 8.8 L Immature Gran % (Auto) 0.2 Neut % (Auto) 76.3 H Lymph % (Auto) 13.2 L [place] % (Auto) 8.7 Eos % (Auto) 0.8 Baso % (Auto) 0.8 Lymph # (Auto) 0.7 L [place] # (Auto) 0.4 Eos # (Auto) 0.0 Baso # (Auto) 0.0 Abs Immat Gran (auto) 0.01 Absolute Neuts (auto) 3.8 Absolute Nucleated RBC 0.000 Nucleated RBC % (auto) 0.0 PT INR APTT Sodium 133 L Potassium 4.7 D Chloride 99 Carbon Dioxide 26 Anion Gap 13 BUN 23 H Creatinine 0.73 Estim Creat Clear Calc 48.6 Estimated GFR > 60 Random Glucose 121 H Estimat Average Glucose Hemoglobin A1c % Calcium 9.4 Total Bilirubin 0.4 AST 31 ALT 12 Alkaline Phosphatase 48 Total Creatine Kinase 272 H Troponin I High Sens 4069.1 H* D Total Protein 7.8 Albumin 4.2 TSH 1.33 Urine Color Yellow Urine Appearance Clear Urine pH 6.5 Ur Specific [place] 1.010 Urine Protein Negative Urine Glucose (UA) Negative Urine Ketones Negative Urine Blood Moderate (2+) H Urine Nitrite Negative Ur Leukocyte Esterase Negative Urine RBC 6-10 H Urine WBC 0-5 Ur Squamous Epith Cells 0-2 Urine Bacteria 4+ Hyaline Casts 0-2 Influenza Type A (PCR) NEGATIVE Influenza Type B (PCR) NEGATIVE RSV RNA Qual (PCR) NEGATIVE SARS-CoV-2 RNA (RT-PCR) NEGATIVE 08/12/23 08/12/23 03:06 03:21 WBC 4.4 L RBC 3.49 L Hgb 11.3 L Hct 32.9 L MCV 94.3 MCH 32.4 MCHC 34.3 RDW 11.7 Plt Count 206 MPV 9.3 L Immature Gran % (Auto) Neut % (Auto) Lymph % (Auto) [place] % (Auto) Eos % (Auto) Baso % (Auto) Lymph # (Auto) [place] # (Auto) Eos # (Auto) Baso # (Auto) Abs Immat Gran (auto) Absolute Neuts (auto) Absolute Nucleated RBC 0.000 Nucleated RBC % (auto) 0.0 PT 11.3 INR 0.9 APTT 22.6 L Sodium Potassium Chloride Carbon Dioxide Anion Gap BUN Creatinine Estim Creat Clear Calc Estimated GFR Random Glucose Estimat Average Glucose 103 Hemoglobin A1c % 5.2 Calcium Total Bilirubin AST ALT Alkaline Phosphatase Total Creatine Kinase Troponin I High Sens 2928.9 H* Total Protein Albumin TSH Urine Color Urine Appearance Urine pH Ur Specific [place] Urine Protein Urine Glucose (UA) Urine Ketones Urine Blood Urine Nitrite Ur Leukocyte Esterase Urine RBC Urine WBC Ur Squamous Epith Cells Urine Bacteria Hyaline Casts Influenza Type A (PCR) Influenza Type B (PCR) RSV RNA Qual (PCR) SARS-CoV-2 RNA (RT-PCR) Discharge Plan Discharge Anticipated Discharge Date/Time: 08/12/23 09:55 Patient Disposition: Xfer Acute Care Hospital Discharge Diagnosis: NSTEMI, DIZZINESS Referrals: Betty Domingo MD [Primary Care Provider] - 1 Week Discharge Medications: New aspirin 81 mg Tablet,Delayed Release (Dr/Ec) 81 mg PO DAILY Qty: 30 0RF heparin(porcine) in 0.45% NaCl 25,000 unit/250 mL Parenteral Solution 25,000 unit continuous IV infusion .Q0M Qty: 6000 0RF Rx Instructions: per protocol heparin (porcine) 5,000 unit/mL Solution 2,600 unit IVPUSH PROTOCOL BOLUS PRN (Reason: 40 Unit/Kg - Heparin Protocol) Qty: 25 0RF Rx Instructions: per protocol heparin (porcine) 5,000 unit/mL Solution 5,200 unit IVPUSH PROTOCOL BOLUS PRN (Reason: 80 Unit/Kg - Heparin Protocol) Qty: 25 0RF Rx Instructions: per protocol metoprolol tartrate 25 mg tablet 25 mg PO BID Qty: 20 0RF Continued epinephrine [EpiPen 2-Constantin] 0.3 mg/0.3 mL auto-injector 0.3 mg IM Q4H PRN (Reason: anaphylaxis) Qty: 2 0RF rosuvastatin [Crestor] 5 mg tablet 5 mg PO DAILY Qty: 90 3RF amlodipine 2.5 mg tablet 2.5 mg PO DAILY Qty: 90 3RF Rx Instructions: Take daily in addition to 5mg tab = 7.5mg daily amlodipine 5 mg tablet 5 mg PO DAILY Qty: 90 3RF Rx Instructions: take one tab (5mg) in addition to 2.5mg to total 7.5mg daily levothyroxine [Synthroid] 75 mcg tablet 75 mcg PO DAILY timolol maleate 0.5 % drops 1 drp ophthalmic (eye) DAILY Lumigan 0.01 % drops 1 drp ophthalmic (eye) QPM carboxymethylcellulose sodium [Refresh Tears] 0.5 % drops 1 drp ophthalmic (eye) BID Co Q-10 300 mg capsule 300 mg PO DAILY Centrum Silver Men 300-600-300 mcg tablet 1 tab PO DAILY meloxicam 15 mg tablet 15 mg PO DAILY Qty: 20 0RF Discharge Orders: Discharge Order (Routine); Ordered 08/12/23 Ordered By: Alin Scott Diet: Advance to usual diet Activity on Discharge: As tolerated Stand Alone Forms: Patient Portal Discharge page Care Plan Goals: ACS work up Health Concerns: NSTEMI Plan of Treatment: IV heparin, ASA, Statin and transfer to [facility] for cardiac cath Assessment: as above
--- NOTE | 2023-08-12 10:01 | P.CONCA_ITS ---
History of Present Illness History of Present Illness Date of Service: 08/12/23 Requesting physician: Alin Scott Consult reason: myocardial infarction Chief complaint: Nstemi Narrative: I was consulted to see Elise in cardiology consultation today as she came in with atypical symptoms. She is 87-year-old active woman with history of hypertension, hyperlipidemia as well as hypothyroidism. She is usually in good shape lives independently and takes of dizziness yesterday she was raking by needles of her lawn and was exerting herself. She then had left shoulder discomfort and see switch to right shoulder and had some right shoulder discomfort in also had some left scapular discomfort. She then started not feeling well and got dizzy. She then decided to stop and went inside. She continues to not feel well she laid down. Then felt better. She is not diaphoretic. No chest pain. No shortness of breath. She then decided to get up and felt dizzy and not felt well. She then decided come to the hospital late in the evening. Brought to the hospital by her daughter. Her 1st troponin was noted to be 4069 with initial EKG showing normal sinus rhythm with nonspecific ST elevation in multiple leads. Subsequent troponin came down to [address] changes with ST T wave biphasic changes in anterolateral leads. Patient id any time did not have any chest pain. Feels well although she says when she went to the bathroom this morning she felt weak. She has never any myocardial infarction in the past. She was then treated as NSTEMI and started on IV heparin drip. Review of Systems 2 Constitutional: Constitutional: Denies chills, Denies fever(s), Reports lethargy and Reports weakness Cardiovascular: Cardiovascular: Denies chest pain, Denies lightheadedness, Denies Loss of Consciousness, Denies palpitations, Denies dyspnea and Reports other (Dizziness) Respiratory: Respiratory: Reports no additional respiratory complaints and Denies dyspnea Gastrointestinal: Gastrointestinal: Reports no additional gastrointestinal complaints Musculoskeletal: Musculoskeletal: Reports other (Shoulder discomfort with activity) Neurologic: Reports weakness Endocrine: Endocrine: Denies palpitations [facility] Past Medical History Medical History Cough Knee pain, bilateral Vertigo HTN (hypertension) Osteoarthritis Kidney cysts Liver cyst Left nephrolithiasis Lumbar radiculopathy Neutropenia Female bladder prolapse Hyperlipidemia Hypothyroidism Anxiety Annual physical exam Social History Social History Housing: House Alcohol intake: current Alcohol intake frequency: does not drink Alcohol type: beer Patient Tobacco Use Status: Former Tobacco user Quit Date: years ago Years Smoked: 20 Smoked in Last 30 Days: No e-Cigarette/Vaping Use: Never Used Use of substances other than those prescribed or required for medical reasons: No Advance Directives: No Advance Directives Information Provided: Yes Current occupational status: retired Cognitive needs: No Hearing needs: No Vision needs: Yes Meds Allergies Allergy/AdvReac Type Severity Reaction Status Date / Time amoxicillin [AMOXICILLIN] Allergy Mild RASH, hives Verified 05/25/23 11:39 rosuvastatin [Crestor] AdvReac Unknown myalgia Verified 05/25/23 11:39 Active Medications: Current Medications Amlodipine Besylate (Amlodipine Besylate 2.5 Mg Tablet) 2.5 mg PO DAILY [facility]; Protocol Amlodipine Besylate (Amlodipine Besylate 5 Mg Tablet) 5 mg PO DAILY [facility]; Protocol Aspirin (Aspirin Enteric Coated 81 Mg Tablet.) 81 mg PO DAILY [facility] Atorvastatin Calcium (Atorvastatin Calcium 20 Mg Tablet) 20 mg PO DAILY [facility] Heparin Sodium (Porcine) (Heparin Sodium,Porcine 5,000 Unit/Ml Vial) 2,600 unit 40 unit/kg (2600 unit) IVPUSH PROTOCOL BOLUS PRN; Protocol PRN Reason: 40 unit/kg - Heparin Protocol Heparin Sodium (Porcine) (Heparin Sodium,Porcine 5,000 Unit/Ml Vial) 5,200 unit 80 unit/kg (5200 unit) IVPUSH PROTOCOL BOLUS PRN; Protocol PRN Reason: 80 unit/kg - Heparin Protocol Heparin Sodium/Sodium Chloride (Heparin Sodium,Porcine/1/2ns) 25,000 unit in 250 mls @ 0 mls/hr IVCONT .Q0M [facility]; Protocol Last Admin: 08/12/23 03:40 Dose: 12 units/kg/hr, 7.84 mls/hr Levothyroxine Sodium (Levothyroxine Sodium 75 Mcg Tablet) 75 mcg PO DAILY@0600 [facility] Last Admin: 08/12/23 05:46 Dose: 75 mcg Non-Formulary Medication (Bimatoprost [Lumigan]) 1 drop EYE-BOTH QPM [facility] Sodium Chloride (0.9 % Sodium Chloride Flush 3 Ml Syringe) 3 ml IVFLUSH QSHIFT [facility] Last Admin: 08/12/23 09:32 Dose: Not Given Timolol Maleate (Timolol Maleate 0.5 % Oph Tamiko 5 Ml Drbtl) 1 drop EYE-BOTH DAILY [facility] Home Medications Medication Instructions Recorded Confirmed Last Taken Type coenzyme Q10 300 mg capsule (Co 300 mg PO DAILY 01/01/21 08/12/23 Unknown History Q-10) [id number] 300 mcg-K 60 1 tab PO DAILY 01/01/21 08/12/23 Unknown History mcg-lycop 600 mcg-lutein 300 mcg tablet (Centrum Silver Men) bimatoprost 0.01 % eye drops 1 drp ophthalmic (eye) QPM 08/31/21 08/12/23 Unknown History (Lumigan) carboxymethylcellulose sodium 0.5 1 drp ophthalmic (eye) BID 08/31/21 08/12/23 Unknown History % eye drops (Refresh Tears) levothyroxine 75 mcg tablet 75 mcg PO DAILY 08/31/21 08/12/23 Unknown History (Synthroid) timolol maleate 0.5 % eye drops 1 drp ophthalmic (eye) DAILY 08/31/21 08/12/23 Unknown History Physical Exam 2 Vital Signs: Vital Signs: Last Vital Signs Temp 98.2 F 08/12/23 00:11 Pulse 83 08/12/23 03:09 Resp 18 08/12/23 03:09 BP 130/70 08/12/23 03:09 Pulse Ox 97 08/12/23 03:09 O2 Del Method Room Air 08/12/23 03:09 BMI result Body Mass Index 24.7 Const: General: cooperative, comfortable, no acute distress, alert and awake Nutritional Appearance: thin Orientation/consciousness: patient oriented x3 Limitations: no limitations HEENT: Head: Yes normocephalic and Yes atraumatic Neck: Neck: Yes trachea midline, Yes supple and Yes no JVD Resp: Effort & Inspection: normal respiratory effort Auscultation: clear to auscultation bilaterally Cardio: Jugular venous distension: no JVD Palpation: normal PMI Rate: r egular rate Rhythm: regular rhythm Heart sounds: S1 normal heart sound present, S2 normal heart sound present, no click, no gallops and Murmur heart sound present systolic early Peripheral pulses: Peripheral pulses 2+ throughout GI: Auscultation: normal bowel sounds Skin: General skin exam: no rashes or lesions noted Neuro: General: patient oriented x3 and no focal motor deficits Extrem: General: Yes no clubbing, cyanosis or edema Objective Labs and Meds 08/12/23 03:21 08/11/23 21:18 Lab results: Laboratory Results - last 24 hr 08/11/23 08/11/23 08/12/23 21:17 21:18 01:39 WBC 4.9 RBC 3.52 L Hgb 11.3 L Hct 33.7 L MCV 95.7 MCH 32.1 MCHC 33.5 RDW 11.7 Plt Count 203 MPV 8.8 L Immature Gran % (Auto) 0.2 Neut % (Auto) 76.3 H Lymph % (Auto) 13.2 L [place] % (Auto) 8.7 Eos % (Auto) 0.8 Baso % (Auto) 0.8 Lymph # (Auto) 0.7 L [place] # (Auto) 0.4 Eos # (Auto) 0.0 Baso # (Auto) 0.0 Abs Immat Gran (auto) 0.01 Absolute Neuts (auto) 3.8 Absolute Nucleated RBC 0.000 Nucleated RBC % (auto) 0.0 PT INR APTT Sodium 133 L Potassium 4.7 D Chloride 99 Carbon Dioxide 26 Anion Gap 13 BUN 23 H Creatinine 0.73 Estim Creat Clear Calc 48.6 Estimated GFR > 60 Random Glucose 121 H Estimat Average Glucose Hemoglobin A1c % Calcium 9.4 Total Bilirubin 0.4 AST 31 ALT 12 Alkaline Phosphatase 48 Total Creatine Kinase 272 H Troponin I High Sens 4069.1 H* D Total Protein 7.8 Albumin 4.2 TSH 1.33 Urine Color Yellow Urine Appearance Clear Urine pH 6.5 Ur Specific [place] 1.010 Urine Protein Negative Urine Glucose (UA) Negative Urine Ketones Negative Urine Blood Moderate (2+) H Urine Nitrite Negative Ur Leukocyte Esterase Negative Urine RBC 6-10 H Urine WBC 0-5 Ur Squamous Epith Cells 0-2 Urine Bacteria 4+ Hyaline Casts 0-2 Influenza Type A (PCR) NEGATIVE Influenza Type B (PCR) NEGATIVE RSV RNA Qual (PCR) NEGATIVE SARS-CoV-2 RNA (RT-PCR) NEGATIVE 08/12/23 08/12/23 03:06 03:21 WBC 4.4 L RBC 3.49 L Hgb 11.3 L Hct 32.9 L MCV 94.3 MCH 32.4 MCHC 34.3 RDW 11.7 Plt Count 206 MPV 9.3 L Immature Gran % (Auto) Neut % (Auto) Lymph % (Auto) [place] % (Auto) Eos % (Auto) Baso % (Auto) Lymph # (Auto) [place] # (Auto) Eos # (Auto) Baso # (Auto) Abs Immat Gran (auto) Absolute Neuts (auto) Absolute Nucleated RBC 0.000 Nucleated RBC % (auto) 0.0 PT 11.3 INR 0.9 APTT 22.6 L Sodium Potassium Chloride Carbon Dioxide Anion Gap BUN Creatinine Estim Creat Clear Calc Estimated GFR Random Glucose Estimat Average Glucose 103 Hemoglobin A1c % 5.2 Calcium Total Bilirubin AST ALT Alkaline Phosphatase Total Creatine Kinase Troponin I High Sens 2928.9 H* Total Protein Albumin TSH Urine Color Urine Appearance Urine pH Ur Specific [place] Urine Protein Urine Glucose (UA) Urine Ketones Urine Blood Urine Nitrite Ur Leukocyte Esterase Urine RBC Urine WBC Ur Squamous Epith Cells Urine Bacteria Hyaline Casts Influenza Type A (PCR) Influenza Type B (PCR) RSV RNA Qual (PCR) SARS-CoV-2 RNA (RT-PCR) EKGs as mention in the H&P Assessment and Plan (1) Non-ST elevation [place] (NSTEMI): Status: Acute Patient present with atypical symptoms with significant elevated troponins an EKG changes along with large wall motion abnormality on the echocardiogram in the LAD territory, could also represent stress-induced cardiomyopathy. Patient currently has due to basal hyperkinesis, obstructive physiology at left ventricular outflow track with asymmetric septal hypertrophy. However she has no signs or symptoms of heart failure hypotension at this point in time. Continue with IV heparin, aspirin, statins. Would use metoprolol therapy also to improve LVOT gradient and reduce ischemic burden. She will require cardiac catheterization given that she has no significant comorbidities and is generally in good health to further help with management and diagnosis. We discussed the possibilities of this being acute plaque rupture in the LAD territory or stress-induced cardiomyopathy which is a diagnosis of exclusion. We discussed the risks, benefits, alternatives to cardiac catheterization. She understands and agrees. Will transfer to [facility] for the same. Will follow up in the clinic after few weeks. Thank you for allowing me to partake in her care Procedures Date of Service Date of Service: 08/12/23
[2023-08-12 10:07] VITALS: BP 102/61; PULSE 96; RESP 20; TEMP 36.8; O2SAT 98
[2023-08-12] MEDS: Aspirin Enteric Coated 81 MG TABLET.DR PO (10:08)
[2023-08-12] MEDS: Atorvastatin Calcium 20 MG TABLET PO (10:08)
[2023-08-12] MEDS: amLODIPine Besylate 5 MG TABLET PO (10:09)
[2023-08-12] MEDS: amLODIPine Besylate 2.5 MG TABLET PO (10:09)
--- NOTE | 2023-08-12 10:19 | PC.NURSE ---
medicated per the MAR, patient aware of transfer to [place] [id number], room 33. attempting to call report at this time.
--- NOTE | 2023-08-12 10:29 | PC.NURSE ---
report given to RN at [facility] [place]
[2023-08-12 11:03] LABS: PTT Heparin Drip 140.5 SEC (53-77.9)
== END 2023-08-12 10:28 | disposition short-term general hospital (02) | DRG 316 ==
LOC: HO.ED 08-12 03:13 → HO.EDOVER 08-12 03:45
PROVIDERS: Registered Nurse Emergency; Admitting Provider Internal Medicine; Emergency Provider Student in an Organized Health Care Education/Training Program; PCP Internal Medicine; Visit Provider Internal Medicine
DX: I51.81 Takotsubo syndrome (principal); E03.9 Hypothyroidism, unspecified; E78.5 Hyperlipidemia, unspecified; H40.9 Unspecified glaucoma; Z20.822 Contact with and (suspected) exposure to COVID-19; Z87.891 Personal history of nicotine dependence; Z79.890 Hormone replacement therapy; Z79.899 Other long term (current) drug therapy
CPT/HCPCS: 0241U; 36415; 80053; 81001; 82550; 83036; 84443; 84484; 85025; 85027; 85610; 85730; 93005; 93306; 99285; J1644; Q9957

== ENCOUNTER → 2023-08-11 20:57 | Outpatient (BNV) | payer MEDICARE, SELFPAY | PROVIDERS: Admitting Provider Internal Medicine; Emergency Provider Student in an Organized Health Care Education/Training Program; PCP Internal Medicine; Visit Provider Internal Medicine Cardiovascular Disease | DX: R94.31 Abnormal electrocardiogram [ECG] [EKG] (principal) | CPT/HCPCS: 93010 ==

== ENCOUNTER → 2023-08-12 00:26 | Outpatient (BNV) | payer MEDICARE, SELFPAY | PROVIDERS: Emergency Provider Student in an Organized Health Care Education/Training Program; PCP Internal Medicine; Visit Provider Internal Medicine | DX: I21.4 Non-ST elevation (NSTEMI) myocardial infarction (principal); R42 Dizziness and giddiness | CPT/HCPCS: 99236; 99499 ==

== ENCOUNTER → 2023-08-12 03:32 | Outpatient (BNV) | payer MEDICARE, SELFPAY | PROVIDERS: Admitting Provider Internal Medicine; Emergency Provider Student in an Organized Health Care Education/Training Program; PCP Internal Medicine; Visit Provider Internal Medicine Cardiovascular Disease | DX: I21.4 Non-ST elevation (NSTEMI) myocardial infarction (principal) | CPT/HCPCS: 93010; 93306; 99222 ==

== ENCOUNTER 2023-08-18 08:52 | Outpatient (AMB) | payer MEDICARE, SELFPAY ==
[2023-08-18 09:23] VITALS: BP 114/58; PULSE 72; O2SAT 97; BMI 24.0
--- NOTE | 2023-08-18 09:23 | MHC.PC.OV ---
Vital Signs 08/18/23 09:23 Height 5 ft 4 in Weight 140 lb BMI 24.0 BP 114/58 L Blood Pressure Location Lt brachial Position Sitting Pulse 72 Pulse Source Pulse Oximeter Pulse Oximetry (%) 97 Oxygen Delivery Method Room Air Intake Visit Reasons: [facility] 08/15/23,Tube in heart Allergies amoxicillin [AMOXICILLIN] Allergy (Mild, Verified 08/18/23 09:27) RASH, hives rosuvastatin [Crestor] Adverse Reaction (Unknown, Verified 08/18/23 09:27) myalgia Medication List - Last Reconciled 08/18/23 by Betty Domingo MD aspirin 81 mg PO DAILY bimatoprost 0.01% (Lumigan) 1 drp ophthalmic (eye) QPM carboxymethylcellulose sodium 0.5% (Refresh Tears) 1 drp ophthalmic (eye) BID coenzyme Q10 (Co Q-10) 300 mg PO DAILY epinephrine (EpiPen 2-Constantin) 0.3 mg (0.3 mL) IM Q4H PRN levothyroxine (Synthroid) 75 mcg PO DAILY metoprolol tartrate 50 mg PO DAILY [id number] mcg (Centrum Silver Men) 1 tab PO DAILY rosuvastatin (Crestor) 5 mg PO DAILY timolol maleate 0.5% 1 drp ophthalmic (eye) DAILY Tobacco use date assessed: 05/25/23 HPI HPI Comments History of Present Illness Details Patient presents for a physical and follow-up from hospitalization at [facility] for Takotsubo cardiomyopathy. Patient is feeling better denies PND orthopnea palpitations chest pain or dyspnea on exertion. She is interesting in starting cardiac rehab at [facility]. [facility] Medical History (Updated 08/18/23 @ 10:49 by Betty Domingo MD) Non-ST elevation MD (NSTEMI) Cough Knee pain, bilateral Vertigo HTN (hypertension) Osteoarthritis Kidney cysts Liver cyst Left nephrolithiasis Lumbar radiculopathy Neutropenia Female bladder prolapse Hyperlipidemia Hypothyroidism Anxiety Annual physical exam Social History Housing: House Alcohol intake: current Alcohol intake frequency: does not drink Alcohol type: beer Patient Tobacco Use Status: Former Tobacco user Quit Date: years ago Years Smoked: 20 e-Cigarette/Vaping Use: Never Used Current occupational status: retired Cognitive needs: No Hearing needs: No Vision needs: Yes Questionnaire Thrive Questionnaire Date Thrive assessed: 09/17/22 SIOMARA-7 AMB Questionnaire SIOMARA-7 Date SIOMARA - 7 assessed: 09/17/22 Source: Developed by Drs. Jeff Salter, Korin Chinchilla, Cam Nathan and colleagues, with an educational nancie from [employer]. Review of Systems Const All systems reviewed & are unremarkable except as noted in HPI and below Reports no additional complaints Eyes Reports no additional complaints ENT Reports no additional complaints Card Reports no additional complaints Resp Reports no additional complaints GI Reports no additional complaints Physical exam (Primary Care) Vital Signs: Last Vital Signs Pulse 72 08/18/23 09:23 BP 114/58 L 08/18/23 09:23 Pulse Ox 97 08/18/23 09:23 Oxygen Delivery Method Room Air 08/18/23 09:23 BMI result Body Mass Index 24.0 Tobacco/Smoking Status: Tobacco use Status Tobacco use date assessed 05/25/23 08/18/23 09:31 Patient Tobacco Use Status Former Tobacco user 08/18/23 09:31 e-Cigarette/Vaping Use Never Used 08/18/23 09:31 Thrive Assessment: Date of Thrive Assessment Date Thrive assessed 09/17/22 08/18/23 09:31 Const General: no acute distress HENMT Ears: hearing grossly normal bilaterally Throat: Yes posterior oropharynx normal Neck Neck: Yes no lymphadenopathy and Yes supple Resp Effort & Inspection: normal respiratory effort Auscultation: clear to auscultation bilaterally Cardio Rhythm: regular rhythm Heart sounds: S1 normal heart sound present and S2 normal heart sound present GI Inspection: Yes normal to inspection Palpation (GI): Soft to palpation Extrem General: Yes no clubbing, cyanosis or edema Assessment and Plan Assessment & Plan (1) Takotsubo cardiomyopathy: Comment: Echo [facility] [place] 09/03 LVEF 40%, LV outflow tract obstruction, hyperkinesis of basal segment Code(s): I51.81 - Takotsubo syndrome Plan: Continue metoprolol, started cardiac rehab at [facility] and follow-up with Cardiology (2) Anemia: Code(s): D64.9 - Anemia, unspecified Plan: Check iron and B12 level (3) Hyperlipidemia: Code(s): E78.5 - Hyperlipidemia, unspecified Plan: cont statin (4) Annual physical exam: Comment: Well-balanced diet Code(s): Z00.00 - Encounter for general adult medical examination without abnormal findings Plan: f/u 3 months with labs before Orders: Orders IRON PROFILE 3 Months D64.9 - Anemia, unspecified Cardiac Rehab Today I51.81 - Takotsubo syndrome Comprehensive [place]. Panel Fast 3 Months D64.9 - Anemia, unspecified, E03.9 - Hypothyroidism, unspecified, E78.5 - Hyperlipidemia, unspecified, I51.81 - Takotsubo syndrome Vitamin B12 and Folate Today D64.9 - Anemia, unspecified Complete Blood Count Auto Diff 3 Months D64.9 - Anemia, unspecified, E03.9 - Hypothyroidism, unspecified, E78.5 - Hyperlipidemia, unspecified, I51.81 - Takotsubo syndrome Lipid Panel 3 Months D64.9 - Anemia, unspecified, E03.9 - Hypothyroidism, unspecified, E78.5 - Hyperlipidemia, unspecified, I51.81 - Takotsubo syndrome TSH reflex Free T4 3 Months D64.9 - Anemia, unspecified, E03.9 - Hypothyroidism, unspecified, E78.5 - Hyperlipidemia, unspecified, I51.81 - Takotsubo syndrome Referrals Cardiology Referral I51.81 - Takotsubo syndrome Medications: New metoprolol succinate ER 50 mg PO DAILY 90 tabs 1RF Coding Level of Care Code Est Pt Level 4 (79736) Diagnoses Takotsubo cardiomyopathy I51.81 Anemia D64.9 Hyperlipidemia E78.5 Annual physical exam Z00.00
== END 2023-08-18 11:53 | disposition home or self-care (01) ==
PROVIDERS: PCP Internal Medicine; Visit Provider Internal Medicine
DX: I51.81 Takotsubo syndrome (principal); D64.9 Anemia, unspecified; E78.5 Hyperlipidemia, unspecified; Z00.00 Encounter for general adult medical examination without abnormal findings
CPT/HCPCS: 99214

== ENCOUNTER 2023-10-05 13:30 | Outpatient (AMB) | payer MEDICARE, SELFPAY ==
[2023-10-05 13:33] VITALS: BP 124/74; PULSE 80; BMI 23.8
--- NOTE | 2023-10-05 13:33 | A.OFFVIS_ITS ---
Intake Vital Signs 10/05/23 13:33 Height 5 ft 4 in Weight 138 lb 14.259 oz BMI 23.8 BP 124/74 Blood Pressure Location Lt brachial Position Sitting Pulse 80 Intake Visit Reasons: [facility] FU/[facility]/s/p cardiac cath Intake Note: Follow-up post cardiac cath feeling ok Horizontal [employer] Required: No Allergies amoxicillin [AMOXICILLIN] Allergy (Mild, Verified 08/18/23 09:27) RASH, hives rosuvastatin [Crestor] Adverse Reaction (Unknown, Verified 08/18/23 09:27) myalgia Medication List - Last Reconciled 10/05/23 by Tano Tyson MD bimatoprost 0.01% (Lumigan) 1 drp ophthalmic (eye) QPM carboxymethylcellulose sodium 0.5% (Refresh Tears) 1 drp ophthalmic (eye) BID coenzyme Q10 (Co Q-10) 300 mg PO DAILY epinephrine (EpiPen 2-Constantin) 0.3 mg (0.3 mL) IM Q4H PRN levothyroxine (Synthroid) 75 mcg PO DAILY metoprolol succinate ER 50 mg PO DAILY [id number] [id number] mcg (Centrum Silver Men) 1 tab PO DAILY rosuvastatin (Crestor) 5 mg PO DAILY timolol maleate 0.5% 1 drp ophthalmic (eye) DAILY HPI HPI Comments History of Present Illness Details Elise comes for follow-up after recent hospitalization which was suggestive of acute NSTEMI with echocardiogram showing moderately severe LV systolic dysfunction with wall motion abnormality consistent with 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 She subsequently underwent a cardiac catheterization which confirmed the diagnosis with nonobstructive CAD with presence of mid and distal wall motion abnormality consistent with stress-induced/takotsubo cardiomyopathy. Since then she has been released home. She is currently participating phase 2 cardiac rehabilitation. Currently on metoprolol as well as low-dose Crestor therapy. She denies any exertional chest pain. No lightheadedness, syncope. Comes for follow-up after cardiac catheterization. [facility] Medical History Non-ST elevation [place] (NSTEMI) Cough Knee pain, bilateral Vertigo HTN (hypertension) Osteoarthritis Kidney cysts Liver cyst Left nephrolithiasis Lumbar radiculopathy Neutropenia Female bladder prolapse Hyperlipidemia Hypothyroidism Anxiety Annual physical exam Social History Housing: House Alcohol intake: current Alcohol intake frequency: does not drink Alcohol type: beer Patient Tobacco Use Status: Former Tobacco user Quit Date: years ago Years Smoked: 20 e-Cigarette/Vaping Use: Never Used Current occupational status: retired Cognitive needs: No Hearing needs: No Vision needs: Yes Review of Systems Const Denies chills, Denies fatigue, Denies fever(s), Denies frequent falls, Denies weakness, Denies weight gain and Denies weight loss ENT Denies dizziness Card Denies chest pain, Denies leg edema, Denies lightheadedness, Denies palpitations, Denies dyspnea, Denies dyspnea on exertion, Denies orthopnea and Denies other (loss of consciousness) Resp Denies cough, Denies dyspnea and Denies dyspnea on exertion GI Denies hematochezia and Denies change in stool character Musc Denies abnormal gait, Denies muscle weakness, Denies numbness, Denies radiating pain into limb and Denies tingling Neuro Denies abnormal gait, Denies dizziness, Denies frequent falls, Denies numbness, Denies tingling and Denies weakness Endo Denies fatigue and Denies palpitations Physical Exam Vital Signs: Last Vital Signs Pulse 80 10/05/23 13:33 BP 124/74 10/05/23 13:33 BMI result Body Mass Index 23.8 Const General: cooperative, comfortable, no acute distress, well developed, alert and awake Nutritional Appearance: well nourished and thin Orientation/consciousness: patient oriented x3 Limitations: no limitations Neck Neck: Yes trachea midline, Yes supple and Yes no JVD Resp Effort & Inspection: normal respiratory effort Auscultation: clear to auscultation bilaterally Cardio Jugular venous distension: no JVD Palpation: normal PMI Rate: regular rate Rhythm: regular rhythm Heart sounds: S1 normal heart sound present, S2 normal heart sound present, no click, no gallops, no murmurs and no rubs GI Auscultation: normal bowel sounds Skin General skin exam: no rashes or lesions noted Neuro General: patient oriented x3 and no focal motor deficits Extrem General: Yes no clubbing, cyanosis or edema Office Procedures EKG Details: EKG shows normal sinus rhythm with diffuse T-wave inversion inferior and ant erolateral leads suggestive of ischemia, no Q-waves [id number], Complete Assessment & Plan Assessment & Plan (1) Takotsubo cardiomyopathy: Comment: Echo [facility] [place] 09/03 LVEF 40%, LV outflow tract obstruction, hyperkinesis of basal segment Code(s): I51.81 - Takotsubo syndrome Plan: Takotsubo cardiomyopathy related to significant stress. We discussed about pathophysiology of stress-induced cardiomyopathy. Avoidance of stress and stress mitigation strategies were discussed. Continue metoprolol therapy. Goal require repeat echocardiogram to assess for resolution of LV systolic dysfunction and LVOT obstruction was discussed. She understands agrees. Overall good prognosis with takotsubo cardiomyopathy was discussed. Continue statin therapy with target goal LDL less than 100 mg/dL. Continue aggressive blood pressure control. She can finish her phase 2 cardiac rehabilitation. Will follow up in the clinic in 6 months time, sooner p.r.n.. Thank you for allowing me to partake in her care Orders: Orders CA echo limited Today I51.81 - Takotsubo syndrome Coding Level of Care Code Est Pt Level 4 (56200) Diagnoses Takotsubo cardiomyopathy I51.81 CPT Codes EKG - CPT: 11963-[id number], Complete ([id number])
== END 2023-10-05 14:26 | disposition home or self-care (01) ==
PROVIDERS: PCP Internal Medicine; Visit Provider Internal Medicine Cardiovascular Disease
DX: I51.81 Takotsubo syndrome (principal)
CPT/HCPCS: 93010; 99214

== ENCOUNTER → 2023-10-05 13:30 | Outpatient (BNVA) | payer MEDICARE, SELFPAY | PROVIDERS: PCP Internal Medicine; Visit Provider Internal Medicine Cardiovascular Disease | DX: I51.81 Takotsubo syndrome (principal) | CPT/HCPCS: 93005; 99212 ==

== ENCOUNTER 2023-10-10 09:23 | Outpatient (AMB) | payer MEDICARE, SELFPAY ==
--- NOTE | 2023-10-10 09:30 | A.OFFPC_ITS ---
Vital Signs 10/10/23 09:32 Height 5 ft 4 in Weight 141 lb BMI 24.2 BP 118/64 Blood Pressure Location Rt brachial Position Sitting Pulse 69 Pulse Source Pulse Oximeter Pulse Oximetry (%) 99 Oxygen Delivery Method Room Air Intake Visit Reasons: [facility], heart attack Allergies amoxicillin [AMOXICILLIN] Allergy (Mild, Verified 10/10/23 09:33) RASH, hives Medication List - Last Reconciled 10/10/23 by Betty Domingo MD bimatoprost 0.01% (Lumigan) 1 drp ophthalmic (eye) QPM carboxymethylcellulose sodium 0.5% (Refresh Tears) 1 drp ophthalmic (eye) BID coenzyme Q10 (Co Q-10) 300 mg PO DAILY epinephrine (EpiPen 2-Constantin) 0.3 mg (0.3 mL) IM Q4H PRN levothyroxine (Synthroid) 75 mcg PO DAILY metoprolol succinate ER 50 mg PO DAILY [id number]-[id number] [id number] mcg (Centrum Silver Men) 1 tab PO DAILY rosuvastatin (Crestor) 5 mg PO DAILY timolol maleate 0.5% 1 drp ophthalmic (eye) DAILY Tobacco use date assessed: 10/10/23 Fall risk assessment: No Falls in past year Last assessed Fall Risk: 10/10/23 Dental Screening Dental Screen Date: 10/10/23 Did you have a dental visit in the last 12 months?: Yes Did you have a dental problem in the last 6 months where you did not have access to dental care?: No Was dental information given to patient?: Patient has dentist HPI HPI Comments History of Present Illness Details Patient presents for the follow-up takotsubo cardiomyopathy, hypothyroid and hyperlipidemia. Patient denies chest pain, dyspnea on exertion PND orthopnea, palpitations. She has been in cardiac rehab and will have repeated echocardiogram ordered by Cardiology. [facility] Medical History (Updated 10/10/23 @ 10:10 by Betty Domingo MD) Non-ST elevation [place] (NSTEMI) Cough Knee pain, bilateral Vertigo HTN (hypertension) Osteoarthritis Kidney cysts Liver cyst Left nephrolithiasis Lumbar radiculopathy Neutropenia Female bladder prolapse Hyperlipidemia Hypothyroidism Anxiety Annual physical exam Family History Father No problems noted. Mother Hypertension Social History Housing: House Alcohol intake: current Alcohol intake frequency: does not drink Alcohol type: beer Patient Tobacco Use Status: Former Tobacco user Quit Date: years ago Years Smoked: 20 e-Cigarette/Vaping Use: Never Used Current occupational status: retired Cognitive needs: No Hearing needs: No Vision needs: Yes Questionnaire PHQ-9 Over the last 2 weeks, how often have you been bothered by any of the following problems? 1. Little interest or pleasure in doing things: not at all 2. Feeling down, depressed, or hopeless: not at all 3. Trouble falling or staying asleep, or sleeping too much: nearly every day 4. Feeling tired or having little energy: not at all 5. Poor appetite or overeating: not at all 6. Feeling bad about yourself - or that you are a failure or have let yourself or your family down: not at all 7. Trouble concentrating on things, such as reading the newspaper or watching television: not at all 8. Moving or speaking so slowly that other people could have noticed. Or the opposite - being so fidgety or restless that you have been moving around a lot more than usual: not at all 9. Thoughts that you would be better off or of hurting yourself in some way: not at all Total score: 3 Depression Screening Interpretation: Negative Depression Screening Done: Yes Source: Developed by Drs. Jeff Salter, Korin Chinchilla, Cam Nathan and colleagues, with an educational nancie from [employer]. Thrive Questionnaire Date Thrive assessed: 10/10/23 I am a: Patient What is your living situation today?: I have a steady place to live Within the past 12 months, did the food you bought not last and you didn't have the money to get more?: Never true Within the past 12 months, did you worry whether your food would run out before you got money to buy more?: Never true Do you have trouble paying for medicines?: No Do you have trouble getting transportation to medical appointments?: No Do you have trouble paying your heating and electricity bill?: No Do you have trouble taking care of your child, family member or friend?: No Do you have trouble with day-to-day activities such as bathing, preparing meals, shopping, managing finances, etc.?: No Are you currently unemployed and looking for a job?: No Are you interested in more education?: No Please select the resources that you would like help with: None Currently or been in a relationship where the following occur: no concerns reported THRIVE Score: 0 AUDIT C Alcohol Use Questionnaire (AUDIT-C) 1. How often do you have a drink containing alcohol?: Never 3. How often do you have six or more drinks on one occasion?: Never Total Score: 0 SIOMARA-7 AMB Questionnaire SIOMARA-7 Date SIOMARA - 7 assessed: 10/10/23 Feeling nervous, anxious, or on edge: 0 = Not at all Not being able to stop or control worryin = Not at all Worrying too much about different things: 0 = Not at all Trouble relaxin = Not at all Being so restless that it is hard to sit still: 0 = Not at all Becoming easily annoyed or irritable: 0 = Not at all Feeling afraid as if something awful might happen: 0 = Not at all Total SIOMARA-7 score (0-4 normal; 5-9 mild; 10-14 moderate; 15-21 severe): 0 Source: Developed by Drs. Jeff Salter, Korin Chinchilla, Cam Nathan and colleagues, with an educational nancie from [employer]. Review of Systems Const All systems reviewed & are unremarkable except as noted in HPI and below Reports no additional complaints Eyes Reports no additional complaints ENT Reports no additional complaints Card Reports no additional complaints Resp Reports no additional complaints GI Reports no additional complaints Reports no additional complaints Physical exam (Primary Care) Vital Signs: Last Vital Signs Pulse 69 10/10/23 09:32 BP 118/64 10/10/23 09:32 Pulse Ox 99 10/10/23 09:32 Oxygen Delivery Method Room Air 10/10/23 09:32 BMI result Body Mass Index 24.2 Tobacco/Smoking Status: Tobacco use Status Tobacco use date assessed 10/10/23 10/10/23 09:38 Patient Tobacco Use Status Former Tobacco user 10/10/23 09:30 e-Cigarette/Vaping Use Never Used 10/10/23 09:30 PHQ-9: PHQ-9 Score PHQ-9: Total score 3 10/10/23 09:39 Depression Screening Interpretation: Negative Thrive Assessment: Date of Thrive Assessment Date Thrive assessed 10/10/23 10/10/23 09:39 Currently or been in a relationship where the following occur: no concerns reported Const General: no acute distress HENMT Head: Yes normal to inspection Ears: hearing grossly normal bilaterally Throat: Yes posterior oropharynx normal Neck Neck: Yes supple Resp Effort & Inspection: normal respiratory effort Auscultation: clear to auscultation bilaterally Cardio Rhythm: regular rhythm Heart sounds: S1 normal heart sound present and S2 normal heart sound present GI Inspection: Yes normal to inspection Palpation (GI): Soft to palpation Percussion: Yes normal to percussion Auscultation: normal bowel sounds Assessment and Plan Assessment & Plan (1) Takotsubo cardiomyopathy: Comment: Echo [facility] [place] 09/03 LVEF 40%, LV outflow tract obstruction, hyperkinesis of basal segment, cardiac cath mild non obstructive CAD Code(s): I51.81 - Takotsubo syndrome Plan: Continue metoprolol and Crestor, patient will have repeat echocardiogram (2) Hypothyroidism: Code(s): E03.9 - Hypothyroidism, unspecified Plan: Continue levothyroxine (3) Hyperlipidemia: Code(s): E78.5 - Hyperlipidemia, unspecified Plan: Continue crestor (4) HTN (hypertension): Comment: BP goal less than 130/80 Code(s): I10 - Essential (primary) hypertension Plan: HTN stable on metoprolol (5) Anemia: Comment: NORMAL IRON STUDIES AND VIT B12 level Code(s): D64.9 - Anemia, unspecified Plan: Monitor CBC iron studies and vitamin B12 level Orders: Orders IRON PROFILE Today E03.9 - Hypothyroidism, unspecified, E78.5 - Hyperlipidemia, unspecified, I10 - Essential (primary) hypertension, I51.81 - Takotsubo syndrome Comprehensive [place]. Panel Fast Today E03.9 - Hypothyroidism, unspecified, E78.5 - Hyperlipidemia, unspecified, I10 - Essential (primary) hypertension, I51.81 - Takotsubo syndrome Complete Blood Count Auto Diff Today E03.9 - Hypothyroidism, unspecified, E78.5 - Hyperlipidemia, unspecified, I10 - Essential (primary) hypertension, I51.81 - Takotsubo syndrome Vitamin B12 and Folate Today E03.9 - Hypothyroidism, unspecified, E78.5 - Hyperlipidemia, unspecified, I10 - Essential (primary) hypertension, I51.81 - Takotsubo syndrome TSH reflex Free T4 Today E03.9 - Hypothyroidism, unspecified, E78.5 - Hyperlipidemia, unspecified, I10 - Essential (primary) hypertension, I51.81 - Takotsubo syndrome B Type Natriuretic Peptide Today E03.9 - Hypothyroidism, unspecified, E78.5 - Hyperlipidemia, unspecified, I10 - Essential (primary) hypertension, I51.81 - Takotsubo syndrome Lipid Panel Today E03.9 - Hypothyroidism, unspecified, E78.5 - Hyperlipidemia, unspecified, I10 - Essential (primary) hypertension, I51.81 - Takotsubo syndrome Coding Level of Care Code Est Pt Level 4 (33097) Diagnoses Takotsubo cardiomyopathy I51.81 Hypothyroidism E03.9 Hyperlipidemia E78.5 HTN (hypertension) I10 Anemia D64.9
[2023-10-10 09:32] VITALS: BP 118/64; PULSE 69; O2SAT 99; BMI 24.2
== END 2023-10-10 10:10 | disposition home or self-care (01) ==
PROVIDERS: PCP Internal Medicine; Visit Provider Internal Medicine
DX: I51.81 Takotsubo syndrome (principal); E03.9 Hypothyroidism, unspecified; E78.5 Hyperlipidemia, unspecified; I10 Essential (primary) hypertension; D64.9 Anemia, unspecified
CPT/HCPCS: 99214

== ENCOUNTER 2023-10-11 07:55 | Outpatient (REF) | payer MEDICARE, SELFPAY ==
[2023-10-11 10:36] LABS: Basophils Percent Auto 1.6 % (0-2); Eosinophils Absolute Auto 0.1 X10*3/uL (0.0-0.4); Eosinophils Percent Auto 5.7 % (0-4); Hematocrit 35.7 % (37.0-47.0); Hemoglobin 11.6 g/dl (12.0-16.0); Imm Gran Abs Auto 0.01 X10*3/uL (0.00-0.03); Imm Gran Pct Auto 0.4 % (0.0-0.4); Lymphocytes Absolute Auto 1.2 X10*3/uL (1.2-4.9); MANUAL DIFF FLAG SCAN; Mean Corpuscular HGB Conc 32.5 g/dl (31.0-35.0); Mean Corpuscular Hemoglobin 32.4 pg (27.0-33.0); Mean Corpuscular Volume 99.7 fL (80.0-98.0); Monocytes Absolute Auto 0.3 X10*3/uL (0.1-1.2); Neutrophils Absolute Auto 0.8 x10*3/uL (2.0-8.3); Neutrophils Percent Auto 31.3 % (45-73); Platelet Count 206 X10*3/uL (160-400); Red Blood Count 3.58 X10*6/uL (4.20-5.50); Red Cell Distribution Width 11.8 % (11.0-16.0); SCAN SMEAR FLAG 1
[2023-10-11 10:38] LABS: White Blood Count 2.5 X10*3/uL (4.8-10.8)
[2023-10-11 10:54] LABS: B Type Natriuretic Peptide 24 pg/mL (<100)
[2023-10-11 11:05] LABS: Alanine Aminotransferase 10 U/L (0-31); Albumin Level 3.9 g/dL (3.5-5.0); Alkaline Phosphatase 50 U/L (39-117); Anion Gap 9 (12-20); Aspartate Amino Transferase 14 U/L (5-31); Bilirubin Total 0.5 mg/dL (0.0-1.0); Blood Urea Nitrogen 20 mg/dL (9-16); Calcium 9.1 mg/dL (8.4-10.2); Carbon Dioxide 28 mmol/L (22-29); Chloride 108 mmol/L (96-108); Cholesterol 172 mg/dL (<200); Estimated Glomerular Filt Rate > 60; Glucose Fasting 85 mg/dL (60-99); HDL Cholesterol 61 mg/dL (>40); Iron 90 mcg/dL (30-160); LDL Cholesterol Calculated 88 mg/dL (<100); Percent Iron Saturation 41 % (15-50); Sodium 141 mmol/L (135-145); Total Iron Binding Capacity 222 mcg/dL (228-428); Total Protein 7.2 g/dL (6.5-8.0); Triglycerides 118 mg/dL (<150); Unsaturated Iron Binding 132 ug/dL
[2023-10-11 11:16] LABS: Folate 10.1 ng/mL (> or = 4.0); Vitamin B12 512 pg/mL (200-900)
[2023-10-11 11:21] LABS: TSH reflex Free T4 0.86 uIU/mL (0.32-4.0)
[2023-10-11 19:11] LABS: SLIDE REVIEW VERIFIED
== END 2023-10-11 07:56 | disposition home or self-care (01) ==
LOC: HO.HMGCLDS 07:55
PROVIDERS: PCP Internal Medicine; Visit Provider Internal Medicine
DX: I51.81 Takotsubo syndrome (principal); E03.9 Hypothyroidism, unspecified; E78.5 Hyperlipidemia, unspecified; I10 Essential (primary) hypertension
CPT/HCPCS: 36415; 80053; 80061; 82607; 82746; 83540; 83880; 84443; 85025

== ENCOUNTER 2023-10-27 07:45 | Outpatient (AMB) | payer MEDICARE, SELFPAY ==
[2023-10-27 08:09] VITALS: BP 122/66; PULSE 80; O2SAT 99; BMI 24.2
--- NOTE | 2023-10-27 08:09 | A.OFFPC_ITS ---
Vital Signs 10/27/23 08:09 Height 5 ft 4 in Weight 141 lb BMI 24.2 BP 122/66 Blood Pressure Location Lt brachial Position Sitting Pulse 80 Pulse Source Pulse Oximeter Pulse Oximetry (%) 99 Oxygen Delivery Method Room Air Intake Visit Reasons: Follow up on labs Intake Note: Pt is here today for a follow up visit to discuss her lab results. Allergies amoxicillin [AMOXICILLIN] Allergy (Mild, Verified 10/27/23 08:14) RASH, hives Medication List - Last Reconciled 10/27/23 by Betty Domingo MD amlodipine 5 mg PO DAILY amlodipine 2.5 mg PO DAILY bimatoprost 0.01% (Lumigan) 1 drp ophthalmic (eye) QPM carboxymethylcellulose sodium 0.5% (Refresh Tears) 1 drp ophthalmic (eye) BID coenzyme Q10 (Co Q-10) 300 mg PO DAILY epinephrine (EpiPen 2-Constantin) 0.3 mg (0.3 mL) IM Q4H PRN levothyroxine (Synthroid) 75 mcg PO DAILY metoprolol succinate ER 50 mg PO DAILY [id number] [id number] mcg (Centrum Silver Men) 1 tab PO DAILY rosuvastatin (Crestor) 5 mg PO DAILY timolol maleate 0.5% 1 drp ophthalmic (eye) DAILY Tobacco use date assessed: 10/10/23 HPI Follow up on labs HPI Details Patient presents for the follow-up on hypertension hypothyroidism and hyperlipidemia stable on current medications. She has been in cardiac rehab twice a week. [facility] Medical History (Updated 10/27/23 @ 09:05 by Betty Domingo MD) Non-ST elevation [place] (NSTEMI) Cough Knee pain, bilateral Vertigo HTN (hypertension) Osteoarthritis Kidney cysts Liver cyst Left nephrolithiasis Lumbar radiculopathy Neutropenia Female bladder prolapse Hyperlipidemia Hypothyroidism Anxiety Annual physical exam Family History Father No problems noted. Mother Hypertension Social History Housing: House Alcohol intake: current Alcohol intake frequency: does not drink Alcohol type: beer Patient Tobacco Use Status: Former Tobacco user Quit Date: years ago Years Smoked: 20 e-Cigarette/Vaping Use: Never Used Current occupational status: retired Cognitive needs: No Hearing needs: No Vision needs: Yes Questionnaire Thrive Questionnaire Date Thrive assessed: 10/10/23 SIOMARA-7 AMB Questionnaire SIOMARA-7 Date SIOMARA - 7 assessed: 10/10/23 Source: Developed by Drs. Jeff Salter, Korin Chinchilla, Cam Nathan and colleagues, with an educational nancie from [employer]. Review of Systems Const All systems reviewed & are unremarkable except as noted in HPI and below Reports no additional complaints Eyes Reports no additional complaints ENT Reports no additional complaints Card Reports no additional complaints Resp Reports no additional complaints GI Reports no additional complaints Physical exam (Primary Care) Vital Signs: Last Vital Signs Pulse 80 10/27/23 08:09 BP 122/66 10/27/23 08:09 Pulse Ox 99 10/27/23 08:09 Oxygen Delivery Method Room Air 10/27/23 08:09 BMI result Body Mass Index 24.2 Tobacco/Smoking Status: Tobacco use Status Tobacco use date assessed 10/10/23 10/27/23 08:09 Patient Tobacco Use Status Former Tobacco user 10/27/23 08:09 e-Cigarette/Vaping Use Never Used 10/27/23 08:09 Thrive Assessment: Date of Thrive Assessment Date Thrive assessed 10/10/23 10/27/23 08:09 Const General: no acute distress HENMT Head: Yes normal to inspection Throat: Yes posterior oropharynx normal Eyes General: appearance normal, both eyes and all related structures Neck Neck: Yes no lymphadenopathy and Yes supple Resp Effort & Inspection: normal respiratory effort Auscultation: clear to auscultation bilaterally Cardio Rhythm: regular rhythm Heart sounds: S1 normal heart sound present and S2 normal heart sound present GI Inspection: Yes normal to inspection Palpation (GI): Soft to palpation Percussion: Yes normal to percussion Auscultation: normal bowel sounds Assessment and Plan Assessment & Plan (1) Neutropenia: Comment: chronic since 2018, no frequent infections Code(s): D70.9 - Neutropenia, unspecified Plan: Will monitor CBC vitamin B12 level, (2) Takotsubo cardiomyopathy: Comment: Echo [facility] [place] 09/03 LVEF 40%, LV outflow tract obstruction, hyperkinesis of basal segment, cardiac cath mild non obstructive CAD Code(s): I51.81 - Takotsubo syndrome Plan: Continue current medications and, cardiac rehab and follow-up with Cardiology (3) Hypothyroidism: Code(s): E03.9 - Hypothyroidism, unspecified Plan: Continue levothyroxine (4) Hyperlipidemia: Code(s): E78.5 - Hyperlipidemia, unspecified Plan: Continue crestor (5) HTN (hypertension): Comment: BP goal less than 130/80 Code(s): I10 - Essential (primary) hypertension Plan: Continue current medications, follow-up in 6 months Orders: Orders Complete Blood Count Man Dif 6 Months D70.9 - Neutropenia, unspecified Protein Electrophoresis, Serum 6 Months D70.9 - Neutropenia, unspecified Comprehensive [place]. Panel Fast 6 Months D70.9 - Neutropenia, unspecified Immunofixation Pnl, Serum 6 Months D70.9 - Neutropenia, unspecified Coding Level of Care Code Est Pt Level 4 (59359) Diagnoses Neutropenia D70.9 Takotsubo cardiomyopathy I51.81 Hypothyroidism E03.9 Hyperlipidemia E78.5 HTN (hypertension) I10
== END 2023-10-27 08:27 | disposition home or self-care (01) ==
PROVIDERS: PCP Internal Medicine; Visit Provider Internal Medicine
DX: D70.9 Neutropenia, unspecified (principal); I51.81 Takotsubo syndrome; E03.9 Hypothyroidism, unspecified; E78.5 Hyperlipidemia, unspecified; I10 Essential (primary) hypertension
CPT/HCPCS: 99214

== ENCOUNTER 2024-01-14 06:41 | Outpatient (REF) | payer MEDICARE, SELFPAY ==
[2024-01-14 11:20] LABS: Basophils Percent Auto 1.2 % (0-2); Eosinophils Absolute Auto 0.2 X10*3/uL (0.0-0.4); Eosinophils Percent Auto 5.4 % (0-4); Hematocrit 35.8 % (37.0-47.0); Hemoglobin 11.6 g/dl (12.0-16.0); Lymphocytes Absolute Auto 1.8 X10*3/uL (1.2-4.9); Lymphocytes Percent Auto 54.8 % (20-40); MANUAL DIFF FLAG SCAN; Mean Corpuscular HGB Conc 32.4 g/dl (31.0-35.0); Mean Corpuscular Hemoglobin 32.8 pg (27.0-33.0); Mean Corpuscular Volume 101.1 fL (80.0-98.0); Mean Platelet Volume 10.1 fL (9.4-12.3); Monocytes Absolute Auto 0.4 X10*3/uL (0.1-1.2); Monocytes Percent Auto 10.8 % (2-11); Neutrophils Absolute Auto 0.9 x10*3/uL (2.0-8.3); Neutrophils Percent Auto 27.8 % (45-73); Platelet Count 226 X10*3/uL (160-400); Red Blood Count 3.54 X10*6/uL (4.20-5.50); Red Cell Distribution Width 11.8 % (11.0-16.0); SCAN SMEAR FLAG 1; White Blood Count 3.3 X10*3/uL (4.8-10.8)
[2024-01-14 11:45] LABS: SLIDE REVIEW VERIFIED
[2024-01-17 11:49] LABS: PES - Abn Protein Band 1 0.6 g/dL (NONE DETECTED); Prot Elec - Albumin 4.2 g/dL (3.8-4.8); Prot Elec - Alpha1 0.2 g/dL (0.2-0.3); Prot Elec - Alpha2 0.7 g/dL (0.5-0.9); Prot Elec - Beta 1 0.4 g/dL (0.4-0.6); Prot Elec - Beta 2 1.1 g/dL (0.2-0.5); Prot Elec - Gamma 0.7 g/dL (0.8-1.7); Prot Elec - Total Protein 7.2 g/dL (6.1-8.1)
[2024-01-17 20:57] LABS: IgA 122 mg/dL (70-320); IgG 908 mg/dL (600-1540); IgM 1224 mg/dL (50-300)
== END 2024-01-14 06:42 | disposition home or self-care (01) ==
LOC: HO.HMGCLDS 06:41
PROVIDERS: PCP Internal Medicine; Visit Provider Internal Medicine
DX: D64.9 Anemia, unspecified (principal)
CPT/HCPCS: 36415; 82784; 84165; 85025; 86334

== ENCOUNTER 2024-01-16 09:21 | Outpatient (AMB) | payer MEDICARE, SELFPAY ==
[2024-01-16 09:23] VITALS: BP 122/62; PULSE 89; O2SAT 98; BMI 24.5
--- NOTE | 2024-01-16 09:23 | MHC.PC.OV ---
Vital Signs 01/16/24 09:23 Height 5 ft 4 in Weight 143 lb BMI 24.5 BP 122/62 Blood Pressure Location Rt brachial Position Sitting Pulse 89 Pulse Source Pulse Oximeter Pulse Oximetry (%) 98 Oxygen Delivery Method Room Air Intake Visit Reasons: Annual PE Intake Note: Pt is here today for PE. Allergies amoxicillin [AMOXICILLIN] Allergy (Mild, Verified 01/16/24 09:23) RASH, hives Medication List - Last Reconciled 01/16/24 by Betty Domingo MD amlodipine 5 mg PO DAILY amlodipine 2.5 mg PO DAILY bimatoprost 0.01% (Lumigan) 1 drp ophthalmic (eye) QPM carboxymethylcellulose sodium 0.5% (Refresh Tears) 1 drp ophthalmic (eye) BID coenzyme Q10 (Co Q-10) 300 mg PO DAILY epinephrine (EpiPen 2-Constantin) 0.3 mg (0.3 mL) IM Q4H PRN levothyroxine (Synthroid) 75 mcg PO DAILY metoprolol succinate ER 50 mg PO DAILY [id number] 250-62-430-300 mcg (Centrum Silver Men) 1 tab PO DAILY rosuvastatin (Crestor) 5 mg PO DAILY timolol maleate 0.5% 1 drp ophthalmic (eye) DAILY Tobacco use date assessed: 01/16/24 Dental Screening Dental Screen Date: 10/10/23 HPI Annual PE HPI Details Pt presents for PE. [facility] Medical History (Updated 01/16/24 @ 10:10 by Betty Domingo MD) Non-ST elevation [place] (NSTEMI) Cough Knee pain, bilateral Vertigo HTN (hypertension) Osteoarthritis Kidney cysts Liver cyst Left nephrolithiasis Lumbar radiculopathy Neutropenia Female bladder prolapse Hyperlipidemia Hypothyroidism Anxiety Annual physical exam Surgical History No pertinent past surgical history Family History Father No problems noted. Mother Hypertension Social History Housing: House Alcohol intake: current Alcohol intake frequency: does not drink Alcohol type: beer Patient Tobacco Use Status: Former Tobacco user Quit Date: years ago Years Smoked: 20 e-Cigarette/Vaping Use: Never Used service: No Current occupational status: retired Cognitive needs: No Hearing needs: No Vision needs: Yes Questionnaire Thrive Questionnaire Date Thrive assessed: 10/10/23 SIOMARA-7 AMB Questionnaire SIOMARA-7 Date SIOMARA - 7 assessed: 10/10/23 Source: Developed by Drs. Jeff Salter, Korin Chinchilla, Cam Nathan and colleagues, with an educational nancie from [employer]. Review of Systems Const All systems reviewed & are unremarkable except as noted in HPI and below Eyes Reports no additional complaints ENT Reports no additional complaints Card Reports no additional complaints Resp Reports no additional complaints GI Reports no additional complaints Reports no additional complaints Physical exam (Primary Care) Vital Signs: Last Vital Signs Pulse 89 01/16/24 09:23 BP 122/62 01/16/24 09:23 Pulse Ox 98 01/16/24 09:23 Oxygen Delivery Method Room Air 01/16/24 09:23 BMI result Body Mass Index 24.5 Tobacco/Smoking Status: Tobacco use Status Tobacco use date assessed 01/16/24 01/16/24 09:26 Patient Tobacco Use Status Former Tobacco user 01/16/24 09:26 e-Cigarette/Vaping Use Never Used 01/16/24 09:26 Thrive Assessment: Date of Thrive Assessment Date Thrive assessed 10/10/23 01/16/24 09:26 Const General: no acute distress HENMT Head: Yes normal to inspection General nose exam: Abnormal mucous membranes and turbinates present Throat: Yes posterior oropharynx normal Eyes General: appearance normal, both eyes and all related structures Neck Neck: Yes supple Resp Effort & Inspection: normal respiratory effort Auscultation: clear to auscultation bilaterally Cardio Rhythm: regular rhythm Heart sounds: S1 normal heart sound present and S2 normal heart sound present GI Inspection: Yes normal to inspection Palpation (GI): Soft to palpation Percussion: Yes normal to percussion Auscultation: normal bowel sounds Assessment and Plan Assessment & Plan (1) Neutropenia: Comment: chronic since 2018, no frequent infections Code(s): D70.9 - Neutropenia, unspecified Plan: Monitor CBC (2) Takotsubo cardiomyopathy: Comment: Echo [facility] [place] 09/03 LVEF 40%, LV outflow tract obstruction, hyperkinesis of basal segment, cardiac cath mild non obstructive CAD[facility] Code(s): I51.81 - Takotsubo syndrome Plan: Continue current medications and follow-up with Cardiology (3) HTN (hypertension): Comment: BP goal less than 130/80 Code(s): I10 - Essential (primary) hypertension Plan: Continue current medications (4) Annual physical exam: Comment: Well-balanced diet Code(s): Z00.00 - Encounter for general adult medical examination without abnormal findings Plan: Well-balanced diet regular physical activity discussed with the patient return in 6 months Orders: Orders Comprehensive [place]. Panel Fast 6 Months D64.9 - Anemia, unspecified, D70.9 - Neutropenia, unspecified, I10 - Essential (primary) hypertension Vitamin B12 and Folate 6 Months D64.9 - Anemia, unspecified, D70.9 - Neutropenia, unspecified, I10 - Essential (primary) hypertension Complete Blood Count Auto Diff 6 Months D64.9 - Anemia, unspecified, D70.9 - Neutropenia, unspecified, I10 - Essential (primary) hypertension Coding Level of Care Code Est Pt Prev Care >65y(45258) Diagnoses Neutropenia D70.9 Takotsubo cardiomyopathy I51.81 HTN (hypertension) I10 Annual physical exam Z00.00
== END 2024-01-16 10:18 | disposition home or self-care (01) ==
PROVIDERS: PCP Internal Medicine; Visit Provider Internal Medicine
DX: D70.9 Neutropenia, unspecified (principal); I51.81 Takotsubo syndrome; I10 Essential (primary) hypertension; Z00.00 Encounter for general adult medical examination without abnormal findings
CPT/HCPCS: 99397

== ENCOUNTER 2024-02-18 13:04 | Outpatient (AMB) | payer MEDICARE, SELFPAY ==
--- NOTE | 2024-02-18 13:09 | AM.OFFWIN_ITS ---
Intake Vital Signs 02/18/24 13:12 Height 5 ft 4 in BP 120/60 Blood Pressure Location Rt brachial Position Sitting Pulse 82 Pulse Source Pulse Oximeter Temp 98.6 F Temp Source Oral Pulse Oximetry (%) 98 Intake Visit Reasons: EP sore throat Intake Note: pt is here for sore throat on right side, states its sore and red. Patient Tobacco Use Status: Former Tobacco user Quit Date: years ago Allergies amoxicillin [AMOXICILLIN] Allergy (Mild, Verified 02/18/24 13:12) RASH, hives Do you need a note to return to daycare/school/sports/work: No HPI EP sore throat HPI Details Patient is an 88-year-old female with a history of coronary artery disease and hypertension, who comes to the walk-in clinic complaining of a sore throat associated with increased sneezing, postnasal drip and itching to the throat area for the last few weeks. Patient has history of environmental allergies, and has had exposure for the last few weeks outside. She denies fever or chills, weakness or dizziness, malaise or myalgias, nausea vomiting or diarrhea, significant cough, shortness of breath, chest pain, sinus pressure, headache, vertigo, ear pain, or other significant associated symptoms. No rapid COVID testing done. [facility] Medical History Non-ST elevation [place] (NSTEMI) Cough Knee pain, bilateral Vertigo HTN (hypertension) Osteoarthritis Kidney cysts Liver cyst Left nephrolithiasis Lumbar radiculopathy Neutropenia Female bladder prolapse Hyperlipidemia Hypothyroidism Anxiety Annual physical exam Surgical History No pertinent past surgical history Family History Father No problems noted. Mother Hypertension Social History Housing: House Alcohol intake: current Alcohol intake frequency: does not drink Alcohol type: beer Patient Tobacco Use Status: Former Tobacco user Years Smoked: 20 e-Cigarette/Vaping Use: Never Used service: No Current occupational status: retired Cognitive needs: No Hearing needs: No Vision needs: Yes Review of Systems Const All systems reviewed & are unremarkable except as noted in HPI and below Physical Exam Vital Signs: Last Vital Signs Temp 98.6 F 02/18/24 13:12 Pulse 82 02/18/24 13:12 BP 120/60 02/18/24 13:12 Pulse Ox 98 02/18/24 13:12 Const General: cooperative, healthy appearing, comfortable, no acute distress, alert, awake, Physically active and well groomed; No anxious, diaphoretic, ill appearing, intoxicated appearing, poor hygiene or tired appearing Nutritional Appearance: average body habitus Limitations: no limitations HEENT Head: Yes normal to inspection, Yes normocephalic and Yes atraumatic Ears: hearing grossly normal bilaterally, external ears normal, TM's normal bilaterally and EAC's normal General nose exam: Normal external nose present, Abnormal mucous membranes and turbinates present and Nasal discharge present Face and sinus: Yes normal facial exam, Yes sinuses nontender and Yes face symmetric Mouth: Normal oral and palatal mucosa present, lip normal and tongue normal Throat: Yes abnormal tonsil (mildly erythematous bilaterally), No peritonsillar mass, Yes postnasal drainage, No uvular edema and No cobblestoning Eyes General: appearance normal, both eyes and all related structures Neck Neck: Yes normal visual inspection, Yes trachea midline, No anterior neck swelling and Yes lymphadenopathy (Small right submandibular lymph nodes palpable) Chest Chest palpation & inspection: normal palpation of entire chest wall Resp Effort & Inspection: normal respiratory effort Cardio Rate: regular rate Skin Other: Good color, warm and dry Psych Appearance: grossly normal Mental Status: mental status grossly normal Speech and movement: Normal speech and movement present Affect: normal affect Attitude: cooperative Thought process: Normal thought process present Insight: Good insight present (Psych) Judgement: Good judgement present (Psych) Results AMB Rapid Strep AMB Rapid Strep Negative Last Edit by Martínez Panda CMA on 02/18/24 13 :56 Results Reviewed Results Reviewed: Laboratory Last Values Strep Scn Rapid Clinic Negative 02/18/24 13:55 Negative strep test Assessment & Plan Assessment & Plan (1) Allergies: Code(s): T78.40XA - Allergy, unspecified, initial encounter Qualifiers: Encounter type: initial encounter Qualified Code(s): T78.40XA - Allergy, unspecified, initial encounter Plan Patient has history of allergies, and has had exposure for the last few weeks outside. She reports increased sneezing and itching to the throat area. Rapid strep was negative, and pending flu COVID and RSV results today. Likely allergic nasal congestion, causing some mild right submandibular lymphadenopathy and sore throat. Patient will continue her Zyrtec, and can add a 2nd dose to take it twice a day as needed until symptoms improve. She will continue supportive measures otherwise. Follow up as needed for persistent symptoms. Orders: Orders AMB Rapid Strep Screen 02/18/24 Z13.9 - Encounter for screening, unspecified SARS-CoV2/FLU/RSV 02/18/24 R09.89 - Other specified symptoms and signs involving the circulatory and respiratory systems Medications: New fluticasone propionate 50 mcg/actuation (Flonase Allergy Relief) administer into each nostril 1 spray intranasal DAILY 16 grams 0RF Coding Level of Care Code Est Pt Level 3 (35094) Diagnoses Allergy, initial encounter T78.40XA Encounter type: initial encounter
[2024-02-18 13:12] VITALS: BP 120/60; PULSE 82; TEMP 37; O2SAT 98
== END 2024-02-18 13:42 | disposition home or self-care (01) ==
PROVIDERS: PCP Internal Medicine; Visit Provider Physician Assistant Medical
DX: J02.9 Acute pharyngitis, unspecified (principal); T78.40XA Allergy, unspecified, initial encounter
CPT/HCPCS: 87880; 99051; 99213

== ENCOUNTER 2024-02-18 13:58 | Outpatient (REF) | payer MEDICARE, SELFPAY ==
[2024-02-18 15:57] LABS: Influenza A PCR NEGATIVE (Negative); Influenza B PCR NEGATIVE (Negative); Resp Syncy Virus RNA Qual PCR NEGATIVE (Negative); SARS COV2 PCR INHOUSE NEGATIVE (Negative)
== END 2024-02-18 13:59 | disposition home or self-care (01) ==
LOC: HO.LNP 13:58
PROVIDERS: Visit Provider Physician Assistant Medical
DX: R09.89 Other specified symptoms and signs involving the circulatory and respiratory systems (principal); J06.9 Acute upper respiratory infection, unspecified
CPT/HCPCS: 0241U

== ENCOUNTER 2024-04-03 13:49 | Outpatient (AMB) | payer MEDICARE, SELFPAY ==
[2024-04-03 14:02] VITALS: BP 116/70; PULSE 76; BMI 31.8
--- NOTE | 2024-04-03 14:02 | MHC.OFFVIS ---
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: No Allergies amoxicillin [AMOXICILLIN] Allergy (Mild, Verified 02/18/24 13:12) RASH, hives Medication List - Last Reconciled 04/03/24 by Tano Tyson MD amlodipine 5 mg PO DAILY amlodipine 2.5 mg PO DAILY bimatoprost 0.01% (Lumigan) 1 drp ophthalmic (eye) QPM carboxymethylcellulose sodium 0.5% (Refresh Tears) 1 drp ophthalmic (eye) BID coenzyme Q10 (Co Q-10) 300 mg PO DAILY epinephrine (EpiPen 2-Constantin) 0.3 mg (0.3 mL) IM Q4H PRN fluticasone propionate 50 mcg/actuation (Flonase Allergy Relief) 1 spray intranasal DAILY levothyroxine (Synthroid) 75 mcg PO DAILY metoprolol succinate ER 50 mg PO DAILY [id number] [id number] mcg (Centrum Silver Men) 1 tab PO DAILY nutritional supplements ea PO quercetin mg PO rosuvastatin (Crestor) 5 mg PO DAILY timolol maleate 0.5% 1 drp ophthalmic (eye) DAILY HPI Comments Details: Elise comes for follow-up. She has unilateral leg swelling in the right lower extremity especially worse in this heat. She takes all her medications. No cardiac symptoms. She was referred to another trim attacher for unclear reasons. She had an echocardiogram at their office, do not have a copy of the results. Denies any heart failure symptoms. Blood pressures been generally well controlled. [facility] Medical History Non-ST elevation [place] (NSTEMI) Cough Knee pain, bilateral Vertigo HTN (hypertension) Osteoarthritis Kidney cysts Liver cyst Left nephrolithiasis Lumbar radiculopathy Neutropenia Female bladder prolapse Hyperlipidemia Hypothyroidism Anxiety Annual physical exam Surgical History No pertinent past surgical history Family History Father No problems noted. Mother Hypertension Social History Housing: House Alcohol intake: current Alcohol intake frequency: does not drink Alcohol type: beer Patient Tobacco Use Status: Former Tobacco user Years Smoked: 20 e-Cigarette/Vaping Use: Never Used service: No Current occupational status: retired Cognitive needs: No Hearing needs: No Vision needs: Yes Review of Systems Const Denies chills, Denies fatigue, Denies fever(s), Denies frequent falls, Denies weakness, Denies weight gain and Denies weight loss ENT Denies dizziness Card Denies chest pain, Denies leg edema, Denies lightheadedness, Denies palpitations, Denies dyspnea, Denies dyspnea on exertion, Denies orthopnea and Denies other (loss of consciousness) Resp Denies cough, Denies dyspnea and Denies dyspnea on exertion GI Denies hematochezia and Denies change in stool character Musc Denies abnormal gait, Denies muscle weakness, Denies numbness, Denies radiating pain into limb and Denies tingling Neuro Denies abnormal gait, Denies dizziness, Denies frequent falls, Denies numbness, Denies tingling and Denies weakness Endo Denies fatigue and Denies palpitations Physical Exam Vital Signs: Last Vital Signs Pulse 76 04/03/24 14:02 BP 116/70 04/03/24 14:02 BMI result Body Mass Index 31.8 Const General: cooperative, comfortable, no acute distress, well developed, alert and awake Nutritional Appearance: well nourished and thin Orientation/consciousness: patient oriented x3 Limitations: no limitations Neck Neck: Yes trachea midline, Yes supple and Yes no JVD Resp Effort & Inspection: normal respiratory effort Auscultation: clear to auscultation bilaterally Cardio Jugular venous distension: no JVD Palpation: normal PMI Rate: regular rate Rhythm: regular rhythm Heart sounds: S1 normal heart sound present, S2 normal heart sound present, no click, no gallops, no murmurs and no rubs GI Auscultation: normal bowel sounds Skin General skin exam: no rashes or lesions noted Neuro General: patient oriented x3 and no focal motor deficits Extrem General: Yes no clubbing, cyanosis or edema Assessment & Plan Assessment & Plan (1) Takotsubo cardiomyopathy: Comment: Echo [facility] [place] 09/03 LVEF 40%, LV outflow tract obstruction, hyperkinesis of basal segment, cardiac cath mild non obstructive CAD, f/u Dr. Branden Lam and [facility] Cadiovascular Code(s): I51.81 - Takotsubo syndrome Category: Medical Plan: Takotsubo cardiomyopathy which has now resolved with no new symptoms at this point time. Self-limiting nature of takotsubo cardiomyopathy was discussed with her. Will follow-up echocardiogram that was done at outside facility. Continue to participate in stress mitigation strategies. Continue to manage her blood pressure aggressively. Unilateral leg swelling most likely due to venous insufficiency. Advise venous stockings. Will follow up in the clinic in 1 year's time, sooner p.r.n.. Thank you for allowing me to partake in his care Coding Level of Care Code Est Pt Level 3 (66952) Diagnoses Takotsubo cardiomyopathy I51.81
== END 2024-04-03 14:25 | disposition home or self-care (01) ==
PROVIDERS: PCP Internal Medicine; Visit Provider Internal Medicine Cardiovascular Disease
DX: I51.81 Takotsubo syndrome (principal)
CPT/HCPCS: 99213

== ENCOUNTER → 2024-04-03 13:49 | Outpatient (BNVA) | payer MEDICARE, SELFPAY | PROVIDERS: PCP Internal Medicine; Visit Provider Internal Medicine Cardiovascular Disease | DX: I51.81 Takotsubo syndrome (principal) | CPT/HCPCS: 99212 ==

== ENCOUNTER 2024-04-17 08:10 | Outpatient (AMB) | payer MEDICARE, SELFPAY ==
[2024-04-17 08:20] VITALS: BP 124/78; PULSE 79; O2SAT 98; BMI 24.7
--- NOTE | 2024-04-17 08:20 | A.OFFPC_ITS ---
Vital Signs 04/17/24 08:20 Height 5 ft 4 in Weight 144 lb BMI 24.7 BP 124/78 Blood Pressure Location Rt brachial Position Sitting Pulse 79 Pulse Source Pulse Oximeter Pulse Oximetry (%) 98 Oxygen Delivery Method Room Air Intake Visit Reasons: 6M F/U on labs Intake Note: Pt is here today for 6 months follow up visit on labs. Allergies amoxicillin [AMOXICILLIN] Allergy (Mild, Verified 04/17/24 08:24) RASH, hives Medication List - Last Reconciled 04/17/24 by Betty Domingo MD amlodipine 5 mg PO DAILY amlodipine 2.5 mg PO DAILY bimatoprost 0.01% (Lumigan) 1 drp ophthalmic (eye) QPM carboxymethylcellulose sodium 0.5% (Refresh Tears) 1 drp ophthalmic (eye) BID coenzyme Q10 (Co Q-10) 300 mg PO DAILY epinephrine (EpiPen 2-Constantin) 0.3 mg (0.3 mL) IM Q4H PRN levothyroxine (Synthroid) 75 mcg PO DAILY metoprolol succinate ER 50 mg PO DAILY [id number] mcg (Centrum Silver Men) 1 tab PO DAILY nutritional supplements ea PO quercetin mg PO rosuvastatin (Crestor) 5 mg PO DAILY timolol maleate 0.5% 1 drp ophthalmic (eye) DAILY Tobacco use date assessed: 04/17/24 Fall risk assessment: No Falls in past year Last assessed Fall Risk: 04/17/24 Dental Screening Dental Screen Date: 10/10/23 HPI 6M F/U on labs HPI Details Patient presents for the follow-up on hypertension stress-induced cardiomyopathy hypothyroidism hyperlipidemia, stable on current medications. [facility] Medical History Non-ST elevation [place] (NSTEMI) Cough Knee pain, bilateral Vertigo HTN (hypertension) Osteoarthritis Kidney cysts Liver cyst Left nephrolithiasis Lumbar radiculopathy Neutropenia Female bladder prolapse Hyperlipidemia Hypothyroidism Anxiety Annual physical exam Surgical History No pertinent past surgical history Family History Father No problems noted. Mother Hypertension Social History Housing: House Alcohol intake: current Alcohol intake frequency: does not drink Alcohol type: beer Patient Tobacco Use Status: Former Tobacco user Years Smoked: 20 e-Cigarette/Vaping Use: Never Used service: No Current occupational status: retired Cognitive needs: No Hearing needs: No Vision needs: Yes Questionnaire PHQ-9 Over the last 2 weeks, how often have you been bothered by any of the following problems? 1. Little interest or pleasure in doing things: not at all 2. Feeling down, depressed, or hopeless: not at all 3. Trouble falling or staying asleep, or sleeping too much: not at all 4. Feeling tired or having little energy: not at all 5. Poor appetite or overeating: not at all 6. Feeling bad about yourself - or that you are a failure or have let yourself or your family down: not at all 7. Trouble concentrating on things, such as reading the newspaper or watching television: not at all 8. Moving or speaking so slowly that other people could have noticed. Or the opposite - being so fidgety or restless that you have been moving around a lot more than usual: not at all 9. Thoughts that you would be better off or of hurting yourself in some way: not at all Total score: 0 Depression Screening Interpretation: Negative Depression Screening Done: Yes Source: Developed by Drs. Jeff Salter, Korin Chinchilla, Cam Nathan and colleagues, with an educational nancie from [email or web address]. Thrive Questionnaire Date Thrive assessed: 04/17/24 I am a: Patient What is your living situation today?: I choose not to answer this question Within the past 12 months, did the food you bought not last and you didn't have the money to get more?: I choose not to answer this question Within the past 12 months, did you worry whether your food would run out before you got money to buy more?: I choose not to answer this question Do you have trouble paying for medicines?: I choose not to answer this question Do you have trouble getting transportation to medical appointments?: I choose not to answer this question Do you have trouble paying your heating and electricity bill?: I choose not to answer this question Do you have trouble taking care of your child, family member or friend?: I choose not to answer this question Do you have trouble with day-to-day activities such as bathing, preparing meals, shopping, managing finances, etc.?: I choose not to answer this question Are you currently unemployed and looking for a job?: I choose not to answer this question Are you interested in more education?: I choose not to answer this question THRIVE Score: 0 AUDIT C Alcohol Use Questionnaire (AUDIT-C) 1. How often do you have a drink containing alcohol?: Never 3. How often do you have six or more drinks on one occasion?: Never Total Score: 0 SIOMARA-7 AMB Questionnaire SIOMARA-7 Date SIOMARA - 7 assessed: 04/17/24 Feeling nervous, anxious, or on edge: 0 = Not at all Not being able to stop or control worryin = Not at all Worrying too much about different things: 0 = Not at all Trouble relaxin = Not at all Being so restless that it is hard to sit still: 0 = Not at all Becoming easily annoyed or irritable: 0 = Not at all Feeling afraid as if something awful might happen: 0 = Not at all Total SIOMARA-7 score (0-4 normal; 5-9 mild; 10-14 moderate; 15-21 severe): 0 Source: Developed by Drs. Jeff Salter, Korin Chinchilla, Cam Nathan and colleagues, with an educational nancie from [email or web address]. Review of Systems Const All systems reviewed & are unremarkable except as noted in HPI and below Eyes Reports no additional complaints ENT Reports no additional complaints Card Reports no additional complaints Resp Reports no additional complaints GI Reports no additional complaints Reports no additional complaints Physical exam (Primary Care) Vital Signs: Last Vital Signs Pulse 79 04/17/24 08:20 BP 124/78 04/17/24 08:20 Pulse Ox 98 04/17/24 08:20 Oxygen Delivery Method Room Air 04/17/24 08:20 BMI result Body Mass Index 24.7 Tobacco/Smoking Status: Tobacco use Status Tobacco use date assessed 04/17/24 04/17/24 08:27 Patient Tobacco Use Status Former Tobacco user 04/17/24 08:27 e-Cigarette/Vaping Use Never Used 04/17/24 08:27 PHQ-9: PHQ-9 Score PHQ-9: Total score 0 04/17/24 08:27 Depression Screening Interpretation: Negative Thrive Assessment: Date of Thrive Assessment Date Thrive assessed 04/17/24 04/17/24 08:27 Const General: no acute distress HENMT Head: Yes normal to inspection Face and sinus: Yes normal facial exam Throat: Yes posterior oropharynx normal Eyes General: appearance normal, both eyes and all related structures Resp Effort & Inspection: normal respiratory effort Auscultation: clear to auscultation bilaterally Cardio Rhythm: regular rhythm Heart sounds: S1 normal heart sound present and S2 normal heart sound present GI Inspection: Yes normal to inspection Palpation (GI): Soft to palpation Percussion: Yes normal to percussion Auscultation: normal bowel sounds Assessment and Plan Assessment & Plan (1) Takotsubo cardiomyopathy: Comment: Echo [facility] [place] 09/03 LVEF 40%, LV outflow tract obstruction, hyperkinesis of basal segment, cardiac cath mild non obstructive CAD, f/u Dr. Branden Lam and [facility] Cadiovascular Code(s): I51.81 - Takotsubo syndrome Plan: Continue current medications follow-up with Cardiology (2) Anemia: Comment: NORMAL IRON STUDIES AND VIT B12 level Code(s): D64.9 - Anemia, unspecified Plan: Monitor CBC (3) Hypothyroidism: Code(s): E03.9 - Hypothyroidism, unspecified Plan: Continue levothyroxine (4) Hyperlipidemia: Code(s): E78.5 - Hyperlipidemia, unspecified Plan: Continue statin (5) HTN (hypertension): Comment: BP goal less than 130/80 Code(s): I10 - Essential (primary) hypertension Plan: Continue current medications return in 6 months Orders: Orders Complete Blood Count Auto Diff 6 Months D64.9 - Anemia, unspecified, E03.9 - Hypothyroidism, unspecified, E78.5 - Hyperlipidemia, unspecified, I10 - Essential (primary) hypertension, I51.81 - Takotsubo syndrome Comprehensive [place]. Panel Fast 6 Months D64.9 - Anemia, unspecified, E03.9 - Hypothyroidism, unspecified, E78.5 - Hyperlipidemia, unspecified, I10 - Essential (primary) hypertension, I51.81 - Takotsubo syndrome Immunofixation Pnl, Serum 6 Months D64.9 - Anemia, unspecified, E03.9 - Hypothyroidism, unspecified, E78.5 - Hyperlipidemia, unspecified, I10 - Essential (primary) hypertension, I51.81 - Takotsubo syndrome TSH reflex Free T4 6 Months D64.9 - Anemia, unspecified, E03.9 - Hypothyroidism, unspecified, E78.5 - Hyperlipidemia, unspecified, I10 - Essential (primary) hypertension, I51.81 - Takotsubo syndrome Lipid Panel 6 Months D64.9 - Anemia, unspecified, E03.9 - Hypothyroidism, unspecified, E78.5 - Hyperlipidemia, unspecified, I10 - Essential (primary) hypertension, I51.81 - Takotsubo syndrome Vitamin B12 and Folate 6 Months D64.9 - Anemia, unspecified, E03.9 - Hypothyroidism, unspecified, E78.5 - Hyperlipidemia, unspecified, I10 - Essential (primary) hypertension, I51.81 - Takotsubo syndrome Coding Level of Care Code Est Pt Level 4 (08138) Complex EM visit Add On G2211 Diagnoses Takotsubo cardiomyopathy I51.81 Anemia D64.9 Hypothyroidism E03.9 Hyperlipidemia E78.5 HTN (hypertension) I10
== END 2024-04-17 08:47 | disposition home or self-care (01) ==
PROVIDERS: PCP Internal Medicine; Visit Provider Internal Medicine
DX: I51.81 Takotsubo syndrome (principal); D64.9 Anemia, unspecified; E03.9 Hypothyroidism, unspecified; E78.5 Hyperlipidemia, unspecified; I10 Essential (primary) hypertension
CPT/HCPCS: 99214; G2211

== ENCOUNTER 2024-05-07 12:20 | Outpatient (AMB) | payer MEDICARE, SELFPAY ==
[2024-05-07 12:22] VITALS: BP 134/72; PULSE 88; O2SAT 98; BMI 24.7
--- NOTE | 2024-05-07 12:22 | A.OFFPC_ITS ---
Vital Signs 05/07/24 12:22 Height 5 ft 4 in Weight 144 lb BMI 24.7 BP 134/72 Blood Pressure Location Lt brachial Position Sitting Pulse 88 Pulse Source Pulse Oximeter Pulse Oximetry (%) 98 Oxygen Delivery Method Room Air Intake Visit Reasons: Swelling rt knee/leg Intake Note: Pt is here today for a sikc visit. Pt c/o R knee and leg pain. Allergies amoxicillin [AMOXICILLIN] Allergy (Mild, Verified 05/07/24 12:27) RASH, hives Tobacco use date assessed: 04/17/24 Dental Screening Dental Screen Date: 10/10/23 HPI Swelling rt knee/leg HPI Details Pt presents c/o 1 day R acute knee pain after working in the garden resolved next day. Pt c/o chronic persistent RLE swelling worse at the end of a day. HTN is controlled. [facility] Medical History Non-ST elevation [place] (NSTEMI) Cough Knee pain, bilateral Vertigo HTN (hypertension) Osteoarthritis Kidney cysts Liver cyst Left nephrolithiasis Lumbar radiculopathy Neutropenia Female bladder prolapse Hyperlipidemia Hypothyroidism Anxiety Annual physical exam Surgical History No pertinent past surgical history Family History Father No problems noted. Mother Hypertension Social History Housing: House Alcohol intake: current Alcohol intake frequency: does not drink Alcohol type: beer Patient Tobacco Use Status: Former Tobacco user Years Smoked: 20 e-Cigarette/Vaping Use: Never Used service: No Current occupational status: retired Cognitive needs: No Hearing needs: No Vision needs: Yes Questionnaire PHQ-9 Over the last 2 weeks, how often have you been bothered by any of the following problems? 1. Little interest or pleasure in doing things: not at all 2. Feeling down, depressed, or hopeless: not at all 3. Trouble falling or staying asleep, or sleeping too much: nearly every day 4. Feeling tired or having little energy: not at all 5. Poor appetite or overeating: not at all 6. Feeling bad about yourself - or that you are a failure or have let yourself or your family down: not at all 7. Trouble concentrating on things, such as reading the newspaper or watching television: not at all 8. Moving or speaking so slowly that other people could have noticed. Or the opposite - being so fidgety or restless that you have been moving around a lot more than usual: not at all 9. Thoughts that you would be better off or of hurting yourself in some way: not at all Total score: 3 Depression Screening Interpretation: Negative Depression Screening Done: Yes Source: Developed by Drs. Jeff Salter, Korin Chinchilla, Cam Nathan and colleagues, with an educational nancie from [employer]. Thrive Questionnaire Date Thrive assessed: 04/17/24 I am a: Patient What is your living situation today?: I choose not to answer this question Within the past 12 months, did the food you bought not last and you didn't have the money to get more?: I choose not to answer this question Within the past 12 months, did you worry whether your food would run out before you got money to buy more?: Never true Do you have trouble paying for medicines?: I choose not to answer this question Do you have trouble getting transportation to medical appointments?: No Do you have trouble paying your heating and electricity bill?: I choose not to answer this question Do you have trouble taking care of your child, family member or friend?: No Do you have trouble with day-to-day activities such as bathing, preparing meals, shopping, managing finances, etc.?: No Are you currently unemployed and looking for a job?: No Are you interested in more education?: No Please select the resources that you would like help with: None Currently or been in a relationship where the following occur: I choose not to answer THRIVE Score: 0 AUDIT C Alcohol Use Questionnaire (AUDIT-C) 1. How often do you have a drink containing alcohol?: Never Total Score: 0 SIOMARA-7 AMB Questionnaire SIOMARA-7 Date SIOMARA - 7 assessed: 04/17/24 Source: Developed by Drs. Jeff Salter, Cam Lauren and colleagues, with an educational nancie from [employer]. Review of Systems Const All systems reviewed & are unremarkable except as noted in HPI and below ENT Reports no additional complaints Card Reports no additional complaints Resp Reports no additional complaints GI Reports no additional complaints Reports no additional complaints Physical exam (Primary Care) Vital Signs: Last Vital Signs Pulse 88 05/07/24 12:22 BP 134/72 05/07/24 12:22 Pulse Ox 98 05/07/24 12:22 Oxygen Delivery Method Room Air 05/07/24 12:22 BMI result Body Mass Index 24.7 Tobacco/Smoking Status: Tobacco use Status Tobacco use date assessed 04/17/24 05/07/24 12:23 Patient Tobacco Use Status Former Tobacco user 05/07/24 12:23 e-Cigarette/Vaping Use Never Used 05/07/24 12:23 PHQ-9: PHQ-9 Score PHQ-9: Total score 3 05/07/24 13:13 Depression Screening Interpretation: Negative Thrive Assessment: Date of Thrive Assessment Date Thrive assessed 04/17/24 05/07/24 12:23 Currently or been in a relationship where the following occur: I choose not to answer Const General: no acute distress HENMT Head: Yes normal to inspection Resp Effort & Inspection: normal respiratory effort Auscultation: clear to auscultation bilaterally Cardio Rhythm: regular rhythm Heart sounds: S1 normal heart sound present and S2 normal heart sound present GI Inspection: Yes normal to inspection Palpation (GI): Soft to palpation Extrem Other: 1+pitting edema RLE, slight deformity of R knee, no erythema, warmth, swelling Assessment and Plan Assessment & Plan (1) Knee pain, right: Code(s): M25.561 - Pain in right knee Plan: check XR and refer to PT (2) Leg edema, right: Code(s): R60.0 - Localized edema Plan: check US r/o DVT (3) HTN (hypertension): Comment: BP goal less than 130/80 Code(s): I10 - Essential (primary) hypertension Plan: cont meds Orders: Orders US venous duplex LE RT Today R60.0 - Localized edema XR knee RT 2V Today M25.561 - Pain in right knee PT Evaluation and Treatment Today M25.561 - Pain in right knee Coding Level of Care Code Est Pt Level 4 (53092) Diagnoses Knee pain, right M25.561 Leg edema, right R60.0 HTN (hypertension) I10
== END 2024-05-07 14:38 | disposition home or self-care (01) ==
PROVIDERS: PCP Internal Medicine; Visit Provider Internal Medicine
DX: M25.561 Pain in right knee (principal); R60.0 Localized edema; I10 Essential (primary) hypertension
CPT/HCPCS: 99214

== ENCOUNTER 2024-05-15 08:11 | Outpatient (REF) | payer MEDICARE, SELFPAY ==
--- NOTE | ~2024-05-15 | XR_ITS ---
EXAMINATION: XR KNEE, RIGHT CLINICAL INFORMATION: Right knee pain COMPARISON: 01/21/2021 TECHNIQUE: Standing AP and lateral views of the right knee FINDINGS: Marked medial compartment narrowing with small marginal osteophytes. Prominent marginal osteophytes also in the patellofemoral and lateral compartments. No fracture. No significant joint effusion. Degenerative findings are similar to the previous study. XR/XR knee RT 2V IMPRESSION: Tricompartmental osteoarthritis, most severe in the medial compartment. Electronically signed by: Bryon Cheng MD 05/18/2024 10:42 AM EDT
--- NOTE | ~2024-05-15 | US_ITS ---
EXAMINATION: US TRIPLEX LOWER EXTREMITY, RIGHT CLINICAL INFORMATION: Right knee pain COMPARISON: None available. TECHNIQUE: Color-flow triplex imaging with spectral analysis and compression Doppler were performed on the right lower extremity. FINDINGS: Respiratory variation, normal compression and augmented flow are noted throughout the right lower extremity. The visualized common femoral vein, superficial femoral vein, profunda femoral vein, popliteal vein and midcalf peroneal and posterior tibial venous segments show no evidence of deep venous thrombosis. Large Granado's cyst in the popliteal fossa extending into the calf measuring 6.4 x 2.1 x 4.1 cm US/US venous duplex LE RT IMPRESSION: No evidence of deep venous thrombosis involving the right lower extremity. Large Granado's cyst extending into the calf Electronically signed by: Chavez Warren MD 05/15/2024 03:48 PM EDT
== END 2024-05-15 08:12 | disposition home or self-care (01) ==
LOC: HO.US 08:11
PROVIDERS: PCP Internal Medicine; Visit Provider Internal Medicine
DX: R60.0 Localized edema (principal); M25.561 Pain in right knee
CPT/HCPCS: 73560; 93971

== ENCOUNTER → 2024-06-07 09:45 | Outpatient (REF) | payer MEDICARE, SELFPAY ==
--- NOTE | 2024-06-07 09:48 | CA_ITS ---
Transthoracic Echocardiogram Patient (Last, First, Middle): Elise Brandon E Gender: Female Date of : 1935 Age: 88 Procedure Date: 06/07/2024 Procedure Type: Transthoracic Echocardiogram Location: OP Height: 162.56 cm Weight: 63.5 kg BSA: 1.68 m2 Heart Rate: bpm BP: 120 / 60 mmHg Flux Tube Attendant: LIZY Referring MD: Tano Tyson MD Symptoms: I51.81 - Takotsubo syndrome Study Quality: Adequate ECG Rhythm: Sinus Conclusions: - The left ventricular systolic function is normal. The calculated ejection fraction is 61% by biplane method. - No obvious valvular pathology seen on this study. Findings Left Ventricle Normal left ventricular cavity size. The left ventricular systolic function is normal. The calculated ejection fraction is 61% by biplane method. There is no evidence of regional wall motion abnormalities. Diastolic function is normal for age. There is mild septal and mild basal asymmetric hypertrophy. Right Ventricle Normal right ventricular cavity size and systolic function. Atria Both atria are normal in size. Aortic Valve There is a normal trileaflet aortic valve. There is no aortic valve stenosis. There is no aortic valve regurgitation. Mitral Valve The mitral valve appears normal. There is no mitral valve regurgitation. There is no mitral valve stenosis. Pulmonic Valve The pulmonic valve is likely normal. Tricuspid Valve There is mild tricuspid valve regurgitation. There is no evidence of pulmonary hypertension. Great Vessels The asc aorta is normal in size. Venous The inferior vena cava is normal in size and collapses greater than 50% with inspiration. Pericardium/Pleural There is no evidence of pericardial effusion. Prior Study Comparison Changes noted compared to prior study dated: 08/12/2023. LVEF and wall motion abnormalities improved. Recommendations, Care & Conclusions No obvious valvular pathology seen on this study. Measurements 2D Linear Measurements IVSd: 0.81 0.6-0.9/0.6-1.0 cm LVIDd: 3.88 3.9-5.3/4.2-5.9 cm LVIDd Index: 2.31 2.4-3.2/2.2-3.1 cm/m2 LVIDs: 2.00 2.0-3.6 cm LVPWd: 0.91 0.7-1.1 cm LA Diam: 2.60 2.7-3.8/3.0-4.0 cm LAIDs Index: 1.55 1.5-2.3 cm/m2 LV Mass: 122.19 67-162/88-224 g LV Mass Index: 72.73 43-95/49-115 g/m2 LVOT Diam: 2.10 3.0+(-)1.3 cm 2D Systolic Function EF 4C: 64.80 >55% EF 2C: 61.50 >55% EF BiP: 60.70 >55% Mitral Valve MV Pk E: 0.53 MV PK A: 0.72 MV Decel Time: 292.00 E/A: 0.70 E'Lateral: 7.29 E'Medial: 6.64 E/E' Med: 7.90 E/E' Lat: 7.20 PHT: 86.00 MVA PHT: 2.56 Decel Spencer: 1.80 Aortic Valve AoV Pk Jt: 1.05 AoV Mn Jt: 0.78 AoV VTI: 0.22 AoV Pk Grad: 4.00 Aov Mn Grad: 3.00 IRVIN Cont.VTI: 2.98 LVOT LVOT Pk Jt: 0.80 LVOT Mn Jt: 0.55 LVOT VTI: 0.19 LVOT Pk Grad: 3.00 LVOT Mn Grad: 1.00 LVOT Diam: 2.10 LVOT Area: 3.46 Diastolic Function MV Pk E: 0.53 MV Pk A: 0.72 E/A: 0.70 E'Medial: 6.64 E/E' Med: 7.90 E' Laterial: 7.29 E/E' Lat: 7.20 Right Ventricle TAPSE (mm): 22.60 TVS' Jt: 9.57 Tricuspid Valve TR Pk Jt: 2.54 TR Pk Grad: 26.00 RA Press: 3.00 RVSP: 29.00 Great Vessels Aorta Sinus of Valsalva: 2.82 2.0-3.[address] [place]: 2.58 1.7-3.4 cm Ao Asc: 3.20 2.1-3.4 cm Updated in Other Vendor System with Status of Final Kael Antoine MD electronically signed on 06/09/2024 11:04:51 AM with status of Final
== END ==
LOC: HO.CARD 09:45
PROVIDERS: PCP Internal Medicine; Visit Provider Internal Medicine Cardiovascular Disease
DX: I51.81 Takotsubo syndrome (principal); I10 Essential (primary) hypertension
CPT/HCPCS: 93306

== ENCOUNTER → 2024-06-07 09:48 | Outpatient (BNV) | payer MEDICARE, SELFPAY | PROVIDERS: PCP Internal Medicine; Visit Provider Internal Medicine | DX: I42.2 Other hypertrophic cardiomyopathy (principal); I51.81 Takotsubo syndrome; I36.1 Nonrheumatic tricuspid (valve) insufficiency | CPT/HCPCS: 93306 ==

== ENCOUNTER 2024-07-25 14:11 | Outpatient (AMB) | payer MEDICARE, SELFPAY ==
--- NOTE | 2024-07-25 14:14 | MHC.OFFWIV ---
Intake Vital Signs 07/25/24 14:17 Height 5 ft 4 in Weight 144 lb BMI 24.7 BP 120/60 Blood Pressure Location Rt brachial Position Sitting Pulse 88 Pulse Source Pulse Oximeter Pulse Oximetry (%) 98 Intake Visit Reasons: EP-rt knee pain Patient Tobacco Use Status: Former Tobacco user Allergies amoxicillin [AMOXICILLIN] Allergy (Mild, Verified 07/25/24 14:18) RASH, hives Do you need a note to return to daycare/school/sports/work: No HPI EP-rt knee pain HPI Details This note is constructed using voice recognition software. While every effort has been made to ensure accuracy, oil pipe inspector errors may have been included. The patient is a 88 year old female who presents to the clinic today with right knee pain for the past 2 days. She notes that she has been yd work with cleaning up the leaves, and has developed increased knee pain, it is worse when she puts pressure on it. There is no pain when she is resting elevating it. She put a compression sock on to above her knee, and it helped, however it felt too tight. She denies any injury to the area, any previous surgery or trauma to the area. She does report that she has arthritis throughout her body, and may have some arthritis in the knee. [facility] Medical History Non-ST elevation [place] (NSTEMI) Cough Knee pain, bilateral Vertigo HTN (hypertension) Osteoarthritis Kidney cysts Liver cyst Left nephrolithiasis Lumbar radiculopathy Neutropenia Female bladder prolapse Hyperlipidemia Hypothyroidism Anxiety Annual physical exam Surgical History No pertinent past surgical history Family History Father No problems noted. Mother Hypertension Social History Housing: House Alcohol intake: current Alcohol intake frequency: does not drink Alcohol type: beer Patient Tobacco Use Status: Former Tobacco user Years Smoked: 20 e-Cigarette/Vaping Use: Never Used service: No Current occupational status: retired Cognitive needs: No Hearing needs: No Vision needs: Yes Review of Systems Const All systems reviewed & are unremarkable except as noted in HPI and below Physical Exam Vital Signs: Last Vital Signs Pulse 88 07/25/24 14:17 BP 120/60 07/25/24 14:17 Pulse Ox 98 07/25/24 14:17 BMI result Body Mass Index 24.7 Const General: cooperative, healthy appearing, comfortable, no acute distress and well developed Orientation/consciousness: patient oriented x3 Limitations: no limitations Resp Effort & Inspection: normal respiratory effort and able to speak in complete sentences Skin General skin exam: no rashes or lesions noted Neuro General: patient oriented x3 Extrem Other: Full range of motion of right knee, ankle, hip. Tender to palpation on lateral joint line of right knee on varus maneuver. No ecchymosis, erythema, warmth. Mild edema to the area. General: Yes normal to inspection Assessment & Plan Assessment & Plan (1) Right knee sprain: Code(s): S83.91XA - Sprain of unspecified site of right knee, initial encounter Qualifiers: Encounter type: initial encounter Involved ligament of knee: unspecified ligament Qualified Code(s): S83.91XA - Sprain of unspecified site of right knee, initial encounter Plan: Advised rest, ice, compression, elevation, and NSAIDs oral or topical as needed. Cristian wrap applied in office. No imaging performed based on physical examination and history of pain. Advised follow up as needed with worsening symptoms or failure to resolve. Plan See above for full details and plan. Coding Level of Care Code Est Pt Level 3 (91911) Diagnoses Sprain of right knee, unspecified ligament, initial encounter S83.91XA Encounter type: initial encounter Involved ligament of knee: unspecified ligament
[2024-07-25 14:17] VITALS: BP 120/60; PULSE 88; O2SAT 98; BMI 24.7
== END 2024-07-25 14:59 | disposition home or self-care (01) ==
PROVIDERS: PCP Internal Medicine; Visit Provider Registered Nurse
DX: S83.91XA Sprain of unspecified site of right knee, initial encounter (principal)

== ENCOUNTER → 2024-07-25 14:11 | Outpatient (BNVA) | payer MEDICARE, SELFPAY | PROVIDERS: PCP Internal Medicine; Visit Provider Registered Nurse | DX: S83.91XA Sprain of unspecified site of right knee, initial encounter (principal) | CPT/HCPCS: 99212 ==

== ENCOUNTER 2024-09-21 11:57 | Outpatient (REF) | payer MEDICARE, SELFPAY ==
--- OUTSIDE RECORDS SUMMARY | 2024-09-21 12:57 | XMS_ITS | Continuity of Care Document ---
Author Organization [facility] [address] [place] [address] Phone [phone] Care Team Providers Care Instructional Systems Specialist Name Role Phone Emelia Domingoanna Care Team Information Supervisor Blasting [phone] Problems Active Problems Provider Date Trish thyroiditis [...] Medications SIG Qnty Indications Ordering Provider Date Braosqewm65ocm Tablets Take One Tablet By Mouth Every Day 90tabs Jose Luis Tenorio M.D. 05/25/2022 Metoprolol Succinate ER50mg Tablets ER 24HR Take One Tablet By Mouth Every Day Unknown Amlodipine Besylate2.5mg Tablets Take One Tablet By Mouth Every Day With 5MG CichonBetty Rosuvastatin Znejxmr6wg Tablets Take One Tablet By Mouth Every [...] uIU/mL 0.450-4.50 0 Laboratory test finding 08/26/2023 [facility] TSH 0.66 uIU/mL [...]
[2024-09-21 16:53] LABS: Influenza A PCR NEGATIVE (Negative); Influenza B PCR NEGATIVE (Negative); Resp Syncy Virus RNA Qual PCR NEGATIVE (Negative); SARS COV2 PCR INHOUSE NEGATIVE (Negative)
== END 2024-09-21 11:58 | disposition home or self-care (01) ==
LOC: HO.LAB 11:57
PROVIDERS: PCP Internal Medicine; Visit Provider Nurse Practitioner Family
DX: J06.9 Acute upper respiratory infection, unspecified (principal)
CPT/HCPCS: 0241U; 99212

== ENCOUNTER 2024-09-21 11:57 | Outpatient (AMB) | payer MEDICARE, SELFPAY ==
--- OUTSIDE RECORDS SUMMARY | 2024-09-21 12:03 | XMS_ITS | Continuity of Care Document ---
Author Organization [facility] [address] [facility] [address] [place] [address] Phone [phone] Care Team Providers Care Vegetable Farm Manager Name Role Phone Emelia Domingoanna Care Team Information Behaviorist + [phone] Problems Active Problems Provider Date Trish thyroiditis Jose Luis Tenorio M.D. On set: 08/30/2023 Hypothyroidism Jose Luis Tenorio M.D. Onset: 1 10/31/2022 Anxiety Jose Luis Tenorio M.D. Onset: 1 10/31/2022 Essential hypertension Jose Luis Tenorio M.D. O nset: 08/30/2023 Anemia Jose Luis Tenorio M.D. 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 Onset: 08/30/2023 Hypercholesterolemia Jose Luis Tenorio M.D. Ons et: 08/30/2023 Pleurisy Jose Luis Tenorio M.D. Onset: 1 10/31/2022 Social History Type Date Description Comments Sex Unknown Tobacco Use Start: Unknown Never Smoked Cigarettes ETOH Use Denies alcohol use Allergies and adverse reactions Active Allergies Criticality Reaction Severity Comments Date Amoxicillin Unable to assess criticality 08/30/2023 Aspirin Unable to assess criticality 08/30/2023 Erythromycin Unable to assess criticality 08/30/2023 Medications Active Medications SIG Qnty Indications Ordering Provider Date [id number] Tablets Take One Tablet By Mouth Every Day 90tabs Jose Luis Tenorio M.D. 05/25/2022 Metoprolol Succinate ER50mg Tablets ER 24HR Take One Tablet By Mouth Every Day Unknown Amlodipine Besylate2.5mg Tablets Take One Tablet By Mouth Every Day With 5MG CichonBetty Rosuvastatin Sxygjoz5rj Tablets Take One Tablet By Mouth Every Day Betty Domingo Timolol Maleate0.5% Solution Instill One Drop In Each Eye Daily In The Morning Oswaldo Monteiro MD Lumigan0.01% Solution Instill One Drop Into Both Eyes Every Night as Directed Oswaldo Monteiro MD Vital Signs Date Vital Result Comment 08/30/2024 9:04am BP Systolic 130 mmHg BP Diastolic 76 mmHg Heart Rate 72 /min Height 64 inches 5'4 Weight 145.12 lb BMI (Body Mass Index) 24.9 kg/m2 Results Test Acquired Date Facility Test Result H/L Range N ote Laboratory test finding 08/28/2024 [facility] TSH Rfx on Abnormal to Free T4 2.600 uIU/mL 0.450-4.50 0 Laboratory test finding 08/26/2023 [facility] TSH 0.66 uIU/mL (0.4-4.2) Medical Devices Description No Information Available Encounters Type Date Location Provider Dx Diagnosis Office Visit 08/30/2024 9:15a Main Office Jose Luis Tenorio M.D. E03.9 Hypothyroidism, unspecified Assessments Date Code Description Provider 08/30/2024 E03.9 Hypothyroidism, unspecified Jose Luis Tenorio M.D. Plan of Treatment Future Appointment(s):* 09/02/2025 9:15 am - Jose Luis Tenorio M.D. at Main Office 08/30/2024 - Jose Luis Tenorio M.D.* E03.9 Hypothyroidism, unspecified* New Labs:* TSH RFX On Abnormal To Free T4, Ordered: 08/30/24 Functional Status Description No Information Available Mental Status Description No Information Available Referrals Description No Information Available
[2024-09-21 12:38] VITALS: BP 126/80; PULSE 68; TEMP 36.5; O2SAT 98
--- NOTE | 2024-09-21 12:38 | AM.OFFWIN_ITS ---
Intake Vital Signs 09/21/24 12:38 Weight 146 lb BP 126/80 Blood Pressure Location Lt brachial Position Sitting Pulse 68 Pulse Source Pulse Oximeter Temp 97.7 F Temp Source Oral Pulse Oximetry (%) 98 Oxygen Delivery Method Room Air Intake Visit Reasons: EP Cough, Runny nose, sore throat Intake Note: Patient here for cough, runny nose, and mucus in throat that has been present for about 3 days. Patient Tobacco Use Status: Former Tobacco user Allergies amoxicillin [AMOXICILLIN] Allergy (Mild, Verified 09/21/24 12:41) RASH, hives Do you need a note to return to daycare/school/sports/work: No HPI EP Cough, Runny nose, sore throat HPI Details This is an 89-year-old female patient who presents to the walk-in clinic today with a 3 day history of dry cough and runny nose. States that the cough has been keeping her up at night. Denies known exposure to sick contacts, however did recently visit a friend in an assisted living facility, where are multiple respiratory viruses were present. Denies any fever or chills. Denies any shortness of breath. Denies GI symptoms. [facility]LY [facility], [facility] Medical History Non-ST elevation RI (NSTEMI) Cough Knee pain, bilateral Vertigo HTN (hypertension) Osteoarthritis Kidney cysts Liver cyst Left nephrolithiasis Lumbar radiculopathy Neutropenia Female bladder prolapse Hyperlipidemia Hypothyroidism Anxiety Annual physical exam Surgical History No pertinent past surgical history Family History Father No problems noted. Mother Hypertension Social History Housing: House Alcohol intake: current Alcohol intake frequency: does not drink Alcohol type: beer Patient Tobacco Use Status: Former Tobacco user Years Smoked: 20 e-Cigarette/Vaping Use: Never Used service: No Current occupational status: retired Cognitive needs: No Hearing needs: No Vision needs: Yes Physical Exam Vital Signs: Last Vital Signs Temp 97.7 F 09/21/24 12:38 Pulse 68 09/21/24 12:38 BP 126/80 01/10/25 12:38 Pulse Ox 98 09/21/24 12:38 Oxygen Delivery Method Room Air 09/21/24 12:38 Const General: cooperative, healthy appearing, comfortable and no acute distress HEENT Head: Yes normal to inspection Ears: hearing grossly normal bilaterally General nose exam: Normal external nose present Face and sinus: Yes normal facial exam Mouth: Normal oral and palatal mucosa present Throat: Yes posterior oropharynx normal Neck Neck: Yes no lymphadenopathy Resp Effort & Inspection: normal respiratory effort and Actively coughing Quality: dry Auscultation: clear to auscultation bilaterally Cardio Palpation: normal PMI Rate: regular rate Rhythm: regular rhythm Skin General skin exam: no rashes or lesions noted Extrem General: Yes capillary refill normal and Yes no clubbing, cyanosis or edema Psych Appearance: grossly normal Mental Status: mental status grossly normal Speech and movement: Normal speech and movement present Assessment & Plan Assessment & Plan (1) Upper respiratory infection: Code(s): J06.9 - Acute upper respiratory infection, unspecified Qualifiers: URI type: unspecified viral URI Qualified Code(s): J06.9 - Acute upper respiratory infection, unspecified Plan: Symptoms are consistent with a viral respiratory illness. COVID/flu/RSV swab was obtained today, and patient aware she will be notified of results once these are available. I have started her on benzonatate for her cough. We reviewed indications, use, possible side effects of medication. Recommended to her conservative measures including rest, hydration, wwri-vtp-jvvunvl cold/flu medication. If she does not improve with treatment, or if symptoms worsen/new symptoms develop, she can return to the clinic for further evaluation. She verbalizes understanding and agreed to plan. Orders: Orders SARS-CoV2/FLU/RSV Today J06.9 - Acute upper respiratory infection, unspecified Medications: New benzonatate Take twice a day as needed for your cough. 100 mg PO BID 7 days PRN 14 caps 0RF cough R05.9 - Cough, unspecified Coding Level of Care Code Est Pt Level 4 (79470) Diagnoses Viral upper respiratory tract infection J06.9 URI type: unspecified viral URI
== END 2024-09-21 13:01 | disposition home or self-care (01) ==
PROVIDERS: PCP Internal Medicine; Visit Provider Nurse Practitioner Family
DX: J06.9 Acute upper respiratory infection, unspecified (principal)

== ENCOUNTER 2024-10-01 10:00 | Outpatient (AMB) | payer MEDICARE, SELFPAY ==
[2024-10-01 10:03] VITALS: BP 134/62; PULSE 89; TEMP 36.6; O2SAT 95; BMI 25.2
--- NOTE | 2024-10-01 10:03 | AM.OFFWIN_ITS ---
Intake Vital Signs 10/01/24 10:03 Height 5 ft 4 in Weight 147 lb BMI 25.2 BP 134/62 Blood Pressure Location Rt brachial Position Sitting Pulse 89 Pulse Source Pulse Oximeter Temp 97.9 F Temp Source Oral Pulse Oximetry (%) 95 Oxygen Delivery Method Room Air Intake Visit Reasons: EP Fall, rt side rib pain Intake Note: Pt is here today took a fall in [employer] [place] lot x3days c/o Rt side of rib pain Patient Tobacco Use Status: Former Tobacco user Allergies amoxicillin [AMOXICILLIN] Allergy (Mild, Verified 09/21/24 12:41) RASH, hives HPI HPI Comments History of Present Illness Details 89 y/o female patient who presents to [facility] walk [facility] clinic with right sided Chest/Rib pain. Pt fell at [employer] ~ a week ago and landed on her right side Rib/chest. Denies SOB, Chest tightness, or wheezing. Denies bruising or crepitus. FORMERLY [facility] Medical History (Updated 10/01/24 @ 10:20 by Adriana Molina NP) Contusion of right chest wall Non-ST elevation CA (NSTEMI) Cough Knee pain, bilateral Vertigo HTN (hypertension) Osteoarthritis Kidney cysts Liver cyst Left nephrolithiasis Lumbar radiculopathy Neutropenia Female bladder prolapse Hyperlipidemia Hypothyroidism Anxiety Annual physical exam Surgical History No pertinent past surgical history Family History Father No problems noted. Mother Hypertension Social History Housing: House Alcohol intake: current Alcohol intake frequency: does not drink Alcohol type: beer Patient Tobacco Use Status: Former Tobacco user Years Smoked: 20 e-Cigarette/Vaping Use: Never Used service: No Current occupational status: retired Cognitive needs: No Hearing needs: No Vision needs: Yes Review of Systems Const All systems reviewed & are unremarkable except as noted in HPI and below Physical Exam Vital Signs: Last Vital Signs Temp 97.9 F 10/01/24 10:03 Pulse 89 10/01/24 10:03 BP 134/62 10/01/24 10:03 Pulse Ox 95 10/01/24 10:03 Oxygen Delivery Method Room Air 10/01/24 10:03 BMI result Body Mass Index 25.2 Const General: cooperative and no acute distress Orientation/consciousness: patient oriented x3 Chest Chest palpation & inspection: normal inspection of the chest, no crepitus, localized rib tenderness with anteroposterior compression (Right sided Rib/chest wall tenderness to palpation.) and no masses Resp Effort & Inspection: normal respiratory effort and able to speak in complete sentences Auscultation: clear to auscultation bilaterally, no crackles, no rales, no rhonchi and no wheezes Cardio Heart sounds: S1 normal heart sound present and S2 normal heart sound present Neuro General: patient oriented x3 Assessment & Plan Assessment & Plan (1) Contusion of right chest wall: Code(s): S20.211A - Contusion of right front wall of thorax, initial encounter Qualifiers: Encounter type: initial encounter Qualified Code(s): S20.211A - Contusion of right front wall of thorax, initial encounter Plan: Recommended Chest/Rib xray. Pt declined due Radiation exposure. Acetaminophen or NSAIDs for pain relief Ice/Hot Rest Coding Level of Care Code Est Pt Level 3 (23050) Diagnoses Contusion of right chest wall, initial encounter S20.211A Encounter type: initial encounter Time Spent (min) 15
--- OUTSIDE RECORDS SUMMARY | 2024-10-01 10:25 | XMS_ITS | Continuity of Care Document ---
Author Organization [facility] [address] [facility] [address] [place] [address] Phone [phone] Care Team Providers Care Medical Equipment Repair Technician Name Role Phone Jose L Betty Care Team Information Electric Clock Mechanic [phone] Problems Active Problems Provider Date Trish thyroiditis [...] Medications SIG Qnty Indications Ordering Provider Date Orjygtveq21nde Tablets Take One Tablet By Mouth Every Day 90tabs Jose Luis Tenorio M.D. 05/25/2022 Metoprolol Succinate ER50mg Tablets ER 24HR Take One Tablet By Mouth Every Day Unknown Amlodipine Besylate2.5mg Tablets Take One Tablet By Mouth Every Day With 5MG CichonBetty Rosuvastatin Whkcxtt8re Tablets Take One Tablet By Mouth Every [...] uIU/mL 0.450-4.50 0 Laboratory test finding 08/26/2023 [facility] Lab TSH 0.66 uIU/mL [...]
== END 2024-10-01 10:34 | disposition home or self-care (01) ==
PROVIDERS: PCP Internal Medicine; Visit Provider Nurse Practitioner Family
DX: S20.211A Contusion of right front wall of thorax, initial encounter (principal)

== ENCOUNTER → 2024-10-01 10:00 | Outpatient (BNVA) | payer MEDICARE, SELFPAY | PROVIDERS: PCP Internal Medicine; Visit Provider Nurse Practitioner Family | DX: S20.211A Contusion of right front wall of thorax, initial encounter (principal) | CPT/HCPCS: 99212 ==

== ENCOUNTER 2024-10-11 09:33 | Outpatient (REF) | payer MEDICARE, SELFPAY ==
--- OUTSIDE RECORDS SUMMARY | 2024-10-11 12:36 | XMS_ITS | Clinical Summary ---
Author Organization [facility] ity Address [address] [place] [address] Care Team Providers Care Jig And Fixture Repairer Name Role Phone Unavailable Primary Care Provider Unavailabl e Social History Tobacco Use Types Packs/Day Years Used Date Smoking Tobacco: Never Assessed Sex and Gender Information Value Date Recorded Sex Assigned at Not on file Gender Identity Not on file Sexual Orientation Not on file Plan of Treatment Health Maintenance Due Date Last Done Comments DTaP,Tdap,and Td Vaccines (1 - Tdap) 1956 Zoster Vaccines (1 of 2) 1987 Pneumococcal Vaccine: 65+ Ye ars (1 of 1 - PCV) 2002 RSV Immunization Patients 60 + Years Old (1 - 1-dose 75+ series) 2012 COVID-19 Vaccine ( - 2023-2 5 season) 2024 Influenza Vaccine (#1) 2024 HIB Vaccines Aged Out No longer eligi ble based on patient's age to complete this topic HPV Vaccines Aged Out No longer eligi ble based on patient's age to complete this topic Hepatitis A Vaccines Aged Out No long er eligible based on patient's age to complete this topic Hepatitis B Vaccines Aged Out No long er eligible based on patient's age to complete this topic IPV Vaccines Aged Out No longer eligi ble based on patient's age to complete this topic MMR Vaccines Aged Out No longer eligi ble based on patient's age to complete this topic Meningococcal ACWY Vaccine Aged Out N o longer eligible based on patient's age to complete this topic RSV Immunization Patients Un toni 20 months Aged Out No longer eligible b ased on patient's age to complete this topic Varicella Vaccines Aged Out No longer eligible based on patient's age to complete this topic
--- OUTSIDE RECORDS SUMMARY | 2024-10-11 12:37 | XMS_ITS | Patient Health Record ---
Author Organization [facility] Address [address] [place] [address] Care Team Providers Care Long Winder Tender Name Role Phone Ratna Sheppard Unavailable [phone] Allergies Allergen (clinical drug ingredient) Drug/Non Drug Allergy documented on EMR Reaction Allergy Type Onset Date Status amoxicillin AMOXICILLIN RASH Drug Allergy Act flores aspirin ASPIRIN PAIN Drug Allergy Active Reason For Referral No Information Medications Medication SIG (Take, Route, Frequency, Duration) Notes Start Date End Date Status amLODIPine Besylate 5MG ORAL for -3 [facility] 04/19/2014 Active Ativan 1MG ORAL for -3 [facility] 04/19/2014 Active Coenzyme Q10 60MG ORAL for -3 [facility] 04/19/2014 Active Lumigan 0.01% Ophthalmic for -3 [facility] 04/19/2014 Active Synthroid 75 MCG 1 ORAL daily for -3 [facility] 12/07/2011 Active Timoptic 0.5% Ophthalmic for -3 [facility] 04/19/2014 Active Valerian ORAL for -3 [facility] 12/07/2011 Active Vitamin D2 50,000 IU 1 ORAL weekly for -3 [facility] 12/07/19 12 Active Problems Problem Type SNOMED Code ICD Code Onset Dates Problem Status W/U Status Risk Notes Problem Midline cystocele (972502654) Cystocele, 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) Active confirmed Problem Hypothyroidism (17768621) Unspecified hypothyroidism (244.9) Active confirmed Major Problem Menopausal symptom (90128948) Symptomatic menopausal or female climacteric states (627.2) Active confirmed Major Problem Postmenopausal atrophic vaginitis (39590599) Postmenopausal atrophic vaginitis (627.3) Active confirmed Diag Problem Osteoarthritis (104292513) Osteoarthrosis, unspecified whether generalized or localized, unspecified site (715.90) Active confirmed Major Plan Of Treatment Pending Test Test Name Order Date COMPLETE URINALYSIS 10/28/2015 MM Digital Mammo Screening 11/18/2015 Insurance Providers Payer Name Payer Address Payer Phone Subscriber Number Group Number Insured Name Patient Relationship to Insured Coverage Start Date Coverage End Date MEDICARE [address] [place], [place] [id number] SANAM ANGEL Self - patient is the insured BC[employer] OF [facility] [address] [place] [address] [id number] SANAM ANGEL Self - patient is the insured Medical (General) History Medical History History ICD Code Postmenopausal atrophic vaginitis N95.2 Unspecified osteoarthritis, unspecified site M19.90 Hypothyroidism, unspecified E03.9 Cystocele, midline Cystocele, midline Surgical History Surgery Date(Month/Year) Appendectomy Breast Reduction Vaginal Hysterectomy and ?Repair for mil d dysplasia keloid repair at breast reduction scars Hospitalization History Reason Date(Month/Year) child
== END 2024-10-11 09:34 | disposition home or self-care (01) ==
LOC: HO.SH 09:33
PROVIDERS: Visit Provider Internal Medicine
DX: Z01.118 Encounter for examination of ears and hearing with other abnormal findings (principal); H90.3 Sensorineural hearing loss, bilateral
CPT/HCPCS: 92557

== ENCOUNTER 2024-10-13 06:31 | Outpatient (REF) | payer MEDICARE, SELFPAY ==
[2024-10-13 11:56] LABS: MANUAL DIFF FLAG NO
[2024-10-13 12:03] LABS: Basophils Absolute Auto 0.1 X10*3/uL (0.0-0.2); Basophils Percent Auto 1.4 % (0-2); Eosinophils Absolute Auto 0.2 X10*3/uL (0.0-0.4); Eosinophils Percent Auto 5.5 % (0-4); Hematocrit 34.8 % (37.0-47.0); Hemoglobin 11.3 g/dl (12.0-16.0); Lymphocytes Absolute Auto 1.6 X10*3/uL (1.2-4.9); Lymphocytes Percent Auto 45.5 % (20-40); Mean Corpuscular HGB Conc 32.5 g/dl (31.0-35.0); Mean Corpuscular Hemoglobin 32.4 pg (27.0-33.0); Mean Corpuscular Volume 99.7 fL (80.0-98.0); Mean Platelet Volume 10.4 fL (9.4-12.3); Monocytes Absolute Auto 0.4 X10*3/uL (0.1-1.2); Monocytes Percent Auto 11.2 % (2-11); Neutrophils Absolute Auto 1.3 x10*3/uL (2.0-8.3); Neutrophils Percent Auto 36.4 % (45-73); Platelet Count 229 X10*3/uL (160-400); Red Blood Count 3.49 X10*6/uL (4.20-5.50); White Blood Count 3.5 X10*3/uL (4.8-10.8)
[2024-10-13 12:30] LABS: Alanine Aminotransferase 12 U/L (0-31); Alkaline Phosphatase 67 U/L (39-117); Anion Gap 13 (12-20); Aspartate Amino Transferase 24 U/L (5-31); Bilirubin Total 0.4 mg/dL (0.0-1.0); Blood Urea Nitrogen 28 mg/dL (9-16); Calcium 9.4 mg/dL (8.4-10.2); Carbon Dioxide 23 mmol/L (22-29); Chloride 110 mmol/L (96-108); Cholesterol 196 mg/dL (<200); Estimated Glomerular Filt Rate > 60; Glucose Fasting 88 mg/dL (60-99); HDL Cholesterol 52 mg/dL (>40); LDL Cholesterol Calculated 104 mg/dL (<100); Potassium 5.1 mmol/L (3.3-5.1); Sodium 141 mmol/L (135-145); TSH reflex Free T4 1.52 uIU/mL (0.32-4.0); Total Protein 7.8 g/dL (6.5-8.0); Triglycerides 203 mg/dL (<150)
[2024-10-13 12:48] LABS: Vitamin B12 679 pg/mL (200-900)
[2024-10-17 09:08] LABS: IgA 117 mg/dL (70-320); IgG 941 mg/dL (600-1540); IgM 1290 mg/dL (50-300)
== END 2024-10-13 06:32 | disposition home or self-care (01) ==
LOC: HO.HMGCLDS 06:31
PROVIDERS: PCP Internal Medicine; Visit Provider Internal Medicine
DX: I51.81 Takotsubo syndrome (principal); D64.9 Anemia, unspecified; E03.9 Hypothyroidism, unspecified; E78.5 Hyperlipidemia, unspecified; I10 Essential (primary) hypertension
CPT/HCPCS: 36415; 80053; 80061; 82607; 82746; 82784; 84443; 85025; 86334

== ENCOUNTER 2024-10-15 09:24 | Outpatient (AMB) | payer MEDICARE, SELFPAY ==
[2024-10-15 09:25] VITALS: BP 120/70; PULSE 78; RESP 18; TEMP 36.6; O2SAT 98; BMI 24.9
--- NOTE | 2024-10-15 09:25 | MHC.PC.OV ---
Vital Signs 10/15/24 09:25 Height 5 ft 4 in Weight 145 lb BMI 24.9 BP 120/70 Blood Pressure Location Lt brachial Position Sitting Respiration 18 Pulse 78 Pulse Source Pulse Oximeter Temp 97.9 F Temp Source Oral Pulse Oximetry (%) 98 Oxygen Delivery Method Room Air Intake Visit Reasons: 6 month follow up Intake Note: Pt is here today for 6 months follow up viist on labs. Allergies amoxicillin [AMOXICILLIN] Allergy (Mild, Verified 09/21/24 12:41) RASH, hives Medication List - Last Reconciled 10/15/24 by Betty Domingo MD amlodipine 5 mg PO DAILY bimatoprost 0.01% (Lumigan) 1 drp ophthalmic (eye) QPM carboxymethylcellulose sodium 0.5% (Refresh Tears) 1 drp ophthalmic (eye) BID coenzyme Q10 (Co Q-10) 300 mg PO DAILY levothyroxine (Synthroid) 75 mcg PO DAILY metoprolol succinate ER 50 mg PO DAILY [id number] mcg (Centrum Silver Men) 1 tab PO DAILY nutritional supplements ea PO rosuvastatin (Crestor) 5 mg PO DAILY timolol maleate 0.5% 1 drp ophthalmic (eye) DAILY Tobacco use date assessed: 10/15/24 Fall risk assessment: 2 + Falls in past year Last assessed Fall Risk: 10/15/24 Dental Screening Dental Screen Date: 10/15/24 Did you have a dental visit in the last 12 months?: Yes Did you have a dental problem in the last 6 months where you did not have access to dental care?: No Was dental information given to patient?: Patient has dentist HPI 6 month follow up HPI Details Pt presents for HTN, hyperlipid, hypothyroid, stable on meds. [facility] Medical History (Updated 10/15/24 @ 10:50 by Betty Domingo MD) Contusion of right chest wall Non-ST elevation HI (NSTEMI) Cough Knee pain, bilateral Vertigo HTN (hypertension) Osteoarthritis Kidney cysts Liver cyst Left nephrolithiasis Lumbar radiculopathy Neutropenia Female bladder prolapse Hyperlipidemia Hypothyroidism Anxiety Annual physical exam Surgical History No pertinent past surgical history Family History Father No problems noted. Mother Hypertension Social History Housing: House Alcohol intake: current Alcohol intake frequency: does not drink Alcohol type: beer Patient Tobacco Use Status: Former Tobacco user Years Smoked: 20 e-Cigarette/Vaping Use: Never Used service: No Current occupational status: retired Cognitive needs: No Hearing needs: No Vision needs: Yes Questionnaire PHQ-9 Over the last 2 weeks, how often have you been bothered by any of the following problems? 1. Little interest or pleasure in doing things: not at all 2. Feeling down, depressed, or hopeless: not at all 3. Trouble falling or staying asleep, or sleeping too much: nearly every day 4. Feeling tired or having little energy: not at all 5. Poor appetite or overeating: not at all 6. Feeling bad about yourself - or that you are a failure or have let yourself or your family down: not at all 7. Trouble concentrating on things, such as reading the newspaper or watching television: not at all 8. Moving or speaking so slowly that other people could have noticed. Or the opposite - being so fidgety or restless that you have been moving around a lot more than usual: not at all 9. Thoughts that you would be better off or of hurting yourself in some way: not at all Total score: 3 Depression Screening Interpretation: Negative Depression Screening Done: Yes 94192 - PHQ-9 Billing: Yes Source: Developed by Drs. Jeff Salter, Korin Chinchilla, Cam Nathan and colleagues, with an educational nancie from [employer]. Thrive Questionnaire Date Thrive assessed: 10/15/24 I am a: Patient What is your living situation today?: I have a steady place to live Within the past 12 months, did the food you bought not last and you didn't have the money to get more?: Never true Within the past 12 months, did you worry whether your food would run out before you got money to buy more?: Never true Do you have trouble paying for medicines?: No Do you have trouble getting transportation to medical appointments?: No Do you have trouble paying your heating and electricity bill?: No Do you have trouble taking care of your child, family member or friend?: No Do you have trouble with day-to-day activities such as bathing, preparing meals, shopping, managing finances, etc.?: No Are you currently unemployed and looking for a job?: No Are you interested in more education?: No Please select the resources that you would like help with: None THRIVE Score: 0 AUDIT C Alcohol Use Questionnaire (AUDIT-C) 1. How often do you have a drink containing alcohol?: Never 3. How often do you have six or more drinks on one occasion?: Never Total Score: 0 SIOMARA-7 AMB Questionnaire SIOMARA-7 Date SIOMARA - 7 assessed: 10/15/24 Feeling nervous, anxious, or on edge: 0 = Not at all Not being able to stop or control worryin = Not at all Worrying too much about different things: 0 = Not at all Trouble relaxin = Not at all Being so restless that it is hard to sit still: 0 = Not at all Becoming easily annoyed or irritable: 0 = Not at all Feeling afraid as if something awful might happen: 0 = Not at all Total SIOMARA-7 score (0-4 normal; 5-9 mild; 10-14 moderate; 15-21 severe): 0 Source: Developed by Drs. Jeff Salter, Korin Chinchilla, Cam Nathan and colleagues, with an educational nancie from [employer]. SIOMARA-7 Assessment Billing SIOMARA-7 Assessment Tool: SIOMARA-7 Assessment 92227 Review of Systems Const All systems reviewed & are unremarkable except as noted in HPI and below Eyes Reports no additional complaints ENT Reports no additional complaints Card Reports no additional complaints Resp Reports no additional complaints GI Reports no additional complaints Reports no additional complaints Physical exam (Primary Care) Vital Signs: Last Vital Signs Temp 97.9 F 10/15/24 09:25 Pulse 78 10/15/24 09:25 Resp 18 10/15/24 09:25 BP 120/70 10/15/24 09:25 Pulse Ox 98 10/15/24 09:25 Oxygen Delivery Method Room Air 10/15/24 09:25 BMI result Body Mass Index 24.9 Tobacco/Smoking Status: Tobacco use Status Tobacco use date assessed 02/03/25 02/03/25 09:34 Patient Tobacco Use Status Former Tobacco user 10/15/24 09:26 e-Cigarette/Vaping Use Never Used 10/15/24 09:26 PHQ-9: PHQ-9 Score PHQ-9: Total score 3 10/15/24 09:34 Depression Screening Interpretation: Negative Thrive Assessment: Date of Thrive Assessment Date Thrive assessed 10/15/24 10/15/24 09:26 Const General: no acute distress HENMT Head: Yes normal to inspection Face and sinus: Yes normal facial exam Throat: Yes posterior oropharynx normal Eyes General: appearance normal, both eyes and all related structures Neck Neck: Yes no lymphadenopathy and Yes supple Resp Effort & Inspection: normal respiratory effort Auscultation: clear to auscultation bilaterally Cardio Rhythm: regular rhythm Heart sounds: S1 normal heart sound present and S2 normal heart sound present GI Inspection: Yes normal to inspection Coding Level of Care Code Est Pt Level 4 (73116) Complex EM visit Add On G2211 Diagnoses Neutropenia D70.9 Takotsubo cardiomyopathy I51.81 Hypothyroidism E03.9 Hyperlipidemia E78.5 HTN (hypertension) I10 MGUS (monoclonal gammopathy of unknown significance) D47.2 Additional Codes SIOMARA-7 Assessment Billing - SIOMARA-7 Assessment Tool: SIOMARA-7 Assessment 56704 ([id number]) PHQ-9 - 19465 - PHQ-9 Billing: Yes ([id number]) Assessment & Plan Assessment & Plan (1) Neutropenia: Comment: chronic since 2018, no frequent infections Code(s): D70.9 - Neutropenia, unspecified Category: Medical Plan: monitor wbc (2) Takotsubo cardiomyopathy: Comment: Echo [facility] 09/03 LVEF 40%, LV outflow tract obstruction, hyperkinesis of basal segment, cardiac cath mild non obstructive CAD, f/u Dr. Branden Lam and [facility] Cadiovascular, Code(s): I51.81 - Takotsubo syndrome Category: Medical Plan: CONTINUE CURRENT MEDICATION FOLLOW-UP WITH THE CARDIOLOGY (3) Hypothyroidism: Code(s): E03.9 - Hypothyroidism, unspecified Category: Medical Plan: Continue levothyroxine (4) Hyperlipidemia: Code(s): E78.5 - Hyperlipidemia, unspecified Category: Medical Plan: Continue statin (5) HTN (hypertension): Comment: BP goal less than 130/80 Code(s): I10 - Essential (primary) hypertension Category: Medical Plan: Continue current medications (6) MGUS (monoclonal gammopathy of unknown significance): Comment: IgM 1224(<300), IGM KAPPA MONOCLONAL BAND PRESENT 0.6 g , 01/2024, referred to Hematology Code(s): D47.2 - Monoclonal gammopathy Category: Medical Plan: Referred to Hematology Orders: Orders Complete Blood Count Auto Diff 6 Months E03.9 - Hypothyroidism, unspecified, E78.5 - Hyperlipidemia, unspecified, I10 - Essential (primary) hypertension Lipid Panel 6 Months E03.9 - Hypothyroidism, unspecified, E78.5 - Hyperlipidemia, unspecified, I10 - Essential (primary) hypertension TSH reflex Free T4 6 Months E03.9 - Hypothyroidism, unspecified, E78.5 - Hyperlipidemia, unspecified, I10 - Essential (primary) hypertension Comprehensive Roby. Panel Fast 6 Months E03.9 - Hypothyroidism, unspecified, E78.5 - Hyperlipidemia, unspecified, I10 - Essential (primary) hypertension Referrals Hematology & Oncology Referral D47.2 - Monoclonal gammopathy Medications: New amlodipine 1 tab and a half daily 5 mg PO DAILY 135 tabs 3RF levothyroxine (Synthroid) 75 mcg PO DAILY 90 tabs 3RF Refilled metoprolol succinate ER 50 mg PO DAILY 90 tabs 3RF rosuvastatin (Crestor) 5 mg PO DAILY 90 tabs 3RF
== END 2024-10-15 10:51 | disposition home or self-care (01) ==
PROVIDERS: PCP Internal Medicine; Visit Provider Internal Medicine
DX: D70.9 Neutropenia, unspecified (principal); I51.81 Takotsubo syndrome; E03.9 Hypothyroidism, unspecified; E78.5 Hyperlipidemia, unspecified; I10 Essential (primary) hypertension; D47.2 Monoclonal gammopathy

== ENCOUNTER → 2024-10-15 09:24 | Outpatient (BNVA) | payer MEDICARE, SELFPAY | PROVIDERS: PCP Internal Medicine; Visit Provider Internal Medicine | DX: D70.9 Neutropenia, unspecified (principal); I51.81 Takotsubo syndrome; E03.9 Hypothyroidism, unspecified; E78.5 Hyperlipidemia, unspecified; I10 Essential (primary) hypertension; D47.2 Monoclonal gammopathy | CPT/HCPCS: 96127; 99212 ==

== ENCOUNTER 2024-10-29 10:36 | Outpatient (REF) | payer MEDICARE, SELFPAY ==
--- OUTSIDE RECORDS SUMMARY | 2024-10-29 10:39 | XMS_ITS | Patient Health Record ---
Author Organization [facility] Address [address] [place] [address] Care Team Providers Care Dairy Farmer Name Role Phone Ratna Sheppard Unavailable [phone] Allergies Allergen (clinical drug ingredient) Drug/Non Drug Allergy documented on EMR Reaction Allergy Type Onset Date Status amoxicillin AMOXICILLIN RASH Drug Allergy Act flores aspirin ASPIRIN PAIN Drug Allergy Active Reason For Referral No Information Medications Medication SIG (Take, Route, Frequency, Duration) Notes Start Date End Date Status amLODIPine Besylate 5MG ORAL for -3 [facility] 04/19/2014 Active Ativan 1MG ORAL for -3 [facility] 04/19/2014 Active Coenzyme Q10 60MG ORAL for -3 [facility] 04/19/2014 Active Lumigan 0.01% Ophthalmic for -3 [facility] [place] 04/19/2014 Active Synthroid 75 MCG 1 ORAL daily for -3 [facility] 12/07/2011 Active Timoptic 0.5% Ophthalmic for -3 [facility] 04/19/2014 Active Valerian ORAL for -3 [facility] 12/07/2011 Active Vitamin D2 50,000 IU 1 ORAL weekly for -3 [facility] 12/07/19 12 Active Problems Problem Type SNOMED Code ICD Code Onset Dates Problem Status W/U Status Risk Notes Problem Midline cystocele (190883403) Cystocele, 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) Active confirmed Problem Hypothyroidism (93199867) Unspecified hypothyroidism (244.9) Active confirmed Major Problem Menopausal symptom (73604994) Symptomatic menopausal or female climacteric states (627.2) Active confirmed Major Problem Postmenopausal atrophic vaginitis (65378742) Postmenopausal atrophic vaginitis (627.3) Active confirmed Diag Problem Osteoarthritis (972944796) Osteoarthrosis, unspecified whether generalized or localized, unspecified site (715.90) Active confirmed Major Plan Of Treatment Pending Test Test Name Order Date COMPLETE URINALYSIS 10/28/2015 MM Digital Mammo Screening 11/18/2015 Insurance Providers Payer Name Payer Address Payer Phone Subscriber Number Group Number Insured Name Patient Relationship to Insured Coverage Start Date Coverage End Date MEDICARE [address] [place], [place] [id number] SANAM ANGEL Self - patient is the insured BCBS OF [facility] [address] [place] [address] [id number] SANAM ANGEL Self - patient is the [...]
--- OUTSIDE RECORDS SUMMARY | 2024-10-29 10:39 | XMS_ITS | Clinical Summary ---
Author Organization [facility] ity Address [address] [place] [address] Care Team Providers Care Anesthesia Associate Name Role Phone Unavailable Primary Care Provider Unavailabl e Social History Tobacco Use Types Packs/Day Years Used Date Smoking Tobacco: Never Assessed Comments Unknown Sex and Gender Information Value Date Recorded Sex Assigned at Not on file Legal Sex Female 2:46 AM EST Gender Identity Not on file Sexual Orientation Not on file Plan of Treatment Health Maintenance Due Date Last Done Comments DTaP,Tdap,and Td Vaccines (1 - Tdap) 1954 Pneumococcal Vaccine: 50+ Ye ars (1 of 1 - PCV) 1987 Zoster Vaccines (1 of 2) 1987 RSV Immunization Patients 60 + Years Old (1 - 1-dose 75+ series) 2012 COVID-19 Vaccine (2023-2 5 season) 2024 Influenza Vaccine (#1) 2024 [...] patient's age to complete this topic Meningococcal B Vacine Aged Out No lo nger eligible based on patient's age to complete this topic RSV Immunization Patients Un toni 20 months Aged Out No longer eligible b ased on patient's age to complete this topic Varicella Vaccines Aged Out No longer eligible based on patient's age to complete this topic
[2024-11-01 06:37] LABS: Creatinine, 24Hr Urine 1.03 g/24 h (0.50-2.15); PEU-PROT/CRE Ratio mg/mg 0.127 (<0.150); PEU24-Albumin Urine 100 %; PEU24-Alpha 1 Globulin 0 %; PEU24-Alpha 2 Globulin 0 %; PEU24-Beta Globulin 0 %; PEU24-Gamma Globulin 0 %; Total Protein 24Hr Urine 131 mg/24 h (<150); Total Protein/Creat Ratio 24h 127 mg/g creat (<150)
== END 2024-10-29 10:37 | disposition home or self-care (01) ==
LOC: HO.LNP 10:36
PROVIDERS: Visit Provider Nurse Practitioner Family
DX: D47.2 Monoclonal gammopathy (principal)
CPT/HCPCS: 82570; 84156; 84166

== ENCOUNTER 2024-10-31 14:45 | Outpatient (REF) | payer MEDICARE, SELFPAY ==
--- NOTE | ~2024-10-31 | MR_ITS ---
CLINICAL HISTORY: MGUS,multilevel back pain,multiple myeloma screen MR thoracic spine with and without gadolinium Comparison: None Findings: Normal alignment. No acute fracture or pathologic bone lesion. Unremarkable thoracic cord. Multilevel disc desiccation. No stenoses. Paraspinous musculature intact. Bilateral renal cysts. IMPRESSION: 1. No evidence of malignancy. 2. Multilevel degenerative disc disease. This document has been electronically signed by: Vinita Hugo MD on 11/01/2024 14:02:18
--- NOTE | ~2024-10-31 | MR_ITS ---
CLINICAL HISTORY: MGUS,multilevel back pain,multiple myeloma screen MR cervical spine with and without gadolinium Comparison: None Findings: Visualized intracranial contents are unremarkable. Soft tissues of the neck are normal. Cervical cord normal size and signal. Loss of normal cervical lordosis is present. 2 mm of retrolisthesis of C5 on C6.] No acute fractures or pathologic bone lesions. Mild reactive signal throughout the endplates of the cervical and upper thoracic spine, most prominently at C5-C6 and C6-C7. C2-C3: Congenital canal stenosis. Moderate disc desiccation. Mild diffuse disc bulge with superimposed small central protrusion. Mild facet and uncovertebral hypertrophy bilaterally. Mild canal stenosis. Mild left and yirj-pj-oyojygbd right foraminal stenosis. C3-C4: Congenital canal stenosis. Moderate disc desiccation. Mild diffuse disc bulge with small superimposed central protrusion. Mild facet and uncovertebral hypertrophy bilaterally. Moderate canal stenosis. Moderate right and mild left foraminal stenosis. C4-C5: Moderate disc desiccation. Mild diffuse disc bulge. Mild facet and uncovertebral hypertrophy bilaterally. Congenital canal stenosis. Moderate canal stenosis. Moderate bilateral foraminal stenosis. C5-C6: Severe disc height loss and desiccation. Mild diffuse disc bulge. Mild facet and uncovertebral hypertrophy bilaterally. Congenital canal stenosis. Moderate canal stenosis. Moderate bilateral foraminal stenosis. C6-C7: Congenital canal stenosis. Moderate disc height loss and desiccation. Moderate diffuse disc bulge/osteophyte. Mild facet and uncovertebral hypertrophy. Moderate to severe canal stenosis. Minimal anterior cord flattening. Severe right and moderate left foraminal stenosis. Right C7 nerve root compression. C7-T1: Congenital canal stenosis. Moderate disc desiccation. Mild diffuse disc bulge. Mild facet and uncovertebral hypertrophy bilaterally. Mild canal stenosis. Moderate bilateral foraminal stenosis. IMPRESSION: 1. No evidence of multiple myeloma. 2. 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 3. Multilevel canal stenoses, worst at C6-C7, where there is minimal cord flattening. 4. Multilevel foraminal stenoses, worst at C6-C7 where there is associated intraforaminal nerve root compression. Correlation with clinical symptoms is recommended to assess relevance of this finding. This document has been electronically signed by: Vinita Hugo MD on 11/01/2024 14:56:36
--- OUTSIDE RECORDS SUMMARY | 2024-10-31 14:48 | XMS_ITS | Clinical Summary ---
Author Organization [facility] ity Address [address] [place] [address] Care Team Providers Care Metal Drill Operator Name Role Phone Unavailable Primary Care Provider [...]
--- OUTSIDE RECORDS SUMMARY | 2024-10-31 14:48 | XMS_ITS | Patient Health Record ---
Author Organization [facility] Address [address] [place] [address] Care Team Providers Care Customer Facilities Supervisor Name Role Phone Ratna Sheppard Unavailable [phone] Allergies Allergen (clinical drug ingredient) Drug/Non Drug Allergy documented on EMR Reaction Allergy Type Onset Date Status amoxicillin AMOXICILLIN RASH Drug Allergy Act flores aspirin ASPIRIN PAIN Drug Allergy Active Reason For Referral No Information Medications Medication SIG (Take, Route, Frequency, Duration) Notes Start Date End Date Status amLODIPine Besylate 5MG ORAL for -3 [facility] 04/19/2014 Active Ativan 1MG ORAL for -3 [facility] 04/19/2014 Active Coenzyme Q10 60MG ORAL for -3 [facility] 04/19/2014 Active Lumigan 0.01% Ophthalmic for -3 [facility] 04/19/2014 Active Synthroid 75 MCG 1 ORAL daily for -3 [facility] 12/07/2011 Active Timoptic 0.5% Ophthalmic for -3 [facility] 04/19/2014 Active Valerian ORAL for -3 [facility] 12/07/2011 Active Vitamin D2 50,000 IU 1 ORAL weekly for -3 [facility] 12/07/19 12 Active Problems Problem Type SNOMED Code ICD Code Onset Dates Problem Status W/U Status Risk Notes Problem Midline cystocele (747085283) Cystocele, 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) Active confirmed Problem Hypothyroidism (54287739) Unspecified hypothyroidism (244.9) Active confirmed Major Problem Menopausal symptom (47985953) Symptomatic menopausal or female climacteric states (627.2) Active confirmed Major Problem Postmenopausal atrophic vaginitis (11732733) Postmenopausal atrophic vaginitis (627.3) Active confirmed Diag Problem Osteoarthritis (249551623) Osteoarthrosis, unspecified whether generalized or localized, unspecified site (715.90) Active confirmed Major Plan Of Treatment Pending Test Test Name Order Date COMPLETE URINALYSIS 10/28/2015 MM Digital Mammo Screening 11/18/2015 Insurance Providers Payer Name Payer Address Payer Phone Subscriber Number Group Number Insured Name Patient Relationship to Insured Coverage Start Date Coverage End Date MEDICARE [address] [place], [place] [id number] SANAM ANGEL Self - patient is the insured BCBS OF [facility] [address] [place] [address] [id number] SANAM ANGEL Self - patient is the [...]
--- OUTSIDE RECORDS SUMMARY | 2024-10-31 14:48 | XMS_ITS | Continuity of Care Document ---
Author Organization [facility] [address] [place] [address] Phone [phone] Care Team Providers Care Chief Dietitian Name Role Phone Emelia Domingoanna Care Team Information Indoor Sports Centre Manager + [phone] Problems Active Problems Provider Date Trish thyroiditis [...] Medications SIG Qnty Indications Ordering Provider Date [id number] Tablets Take One Tablet By Mouth Every Day 90tabs Jose Luis Tenorio M.D. 05/25/2022 Metoprolol Succinate ER50mg Tablets ER 24HR Take One Tablet By Mouth Every Day Unknown Amlodipine Besylate2.5mg Tablets Take One Tablet By Mouth Every Day With 5MG CichonBetty Rosuvastatin Rxolwts6zi Tablets Take One Tablet By Mouth Every [...] uIU/mL 0.450-4.50 0 Laboratory test finding 08/26/2023 [facility] TSH 0.66 uIU/mL (0.4-4.2) [...]
[2024-10-31] MEDS: gadobutroL 7.5 ML VIAL IVPUSH (16:18)
== END 2024-10-31 14:46 | disposition home or self-care (01) ==
LOC: HO.MRI 14:45
PROVIDERS: Visit Provider Nurse Practitioner Family
DX: D47.2 Monoclonal gammopathy (principal); M54.9 Dorsalgia, unspecified
CPT/HCPCS: 72156; 72157; A9585

== ENCOUNTER → 2024-10-31 14:50 | Outpatient (BNV) | payer MEDICARE, SELFPAY | PROVIDERS: Visit Provider Radiology Diagnostic Radiology | DX: M48.02 Spinal stenosis, cervical region (principal); M50.30 Other cervical disc degeneration, unspecified cervical region; M51.34 Other intervertebral disc degeneration, thoracic region | CPT/HCPCS: 72156; 72157 ==

== ENCOUNTER → 2024-11-02 11:11 | Outpatient (BNV) | payer MEDICARE, SELFPAY | PROVIDERS: PCP Internal Medicine; Visit Provider Radiology Diagnostic Radiology | DX: M89.8X5 Other specified disorders of bone, thigh (principal); Z90.710 Acquired absence of both cervix and uterus | CPT/HCPCS: 72158; 72197 ==

== ENCOUNTER 2024-11-02 11:26 | Outpatient (REF) | payer MEDICARE, SELFPAY ==
--- NOTE | ~2024-11-02 | MR_ITS ---
EXAMINATION: MR LUMBAR SPINE WITHOUT AND WITH CONTRAST CLINICAL INFORMATION: Multilevel back pain. Multiple myeloma. COMPARISON: None available. TECHNIQUE: MRI of the lumbar spine was obtained using routine sequences with and without contrast. Intravenous contrast: Gadolinium based 6.5 mL (Gadavist). No reported immediate complications. FINDINGS: Last rib-bearing vertebra labeled T12. No bone marrow STIR signal abnormality. Bone marrow inhomogeneity. Multilevel marginal osteophyte formation and disc desiccation more conspicuous at L5-S1. Grade 1 retrolisthesis L5-S1. Grade 1 anterolisthesis L3-4 and L4-5. No abnormal enhancement within the neural elements/left meningeal compartment or the central spinal canal nor the prevertebral compartment. Heterogeneous enhancement likely degenerative in the posterior elements of L4 and L5. Conus medullaris ends at inferior endplate of T12 with normal signal. T11-12: Facet joint and ligamentum flavum hypertrophy. No disc herniation. No neuroforamina stenosis. T12-L1: Facet joint and ligamentum flavum hypertrophy. No disc herniation. No neuroforamina stenosis. L1-2: Facet joint hypertrophy. No disc herniation. No neuroforamina stenosis. L2-3: Broad-based disc bulging. Facet joint and ligamentum flavum hypertrophy. Reduced AP diameter of the thecal sac and the neural foramina. L3-4: Grade 1 anterolisthesis, uncovered disc. Facet joint and ligamentum flavum hypertrophy. 4 mm hyperintense T2 signal in the medial aspect right facet joint. Reduced AP diameter of the thecal sac encroaching the neural elements. Bilateral neuroforamina narrowing encroaching the exiting nerve roots. L4-5: Broad-based disc bulging. Facet joint and ligamentum flavum hypertrophy. Reduced AP diameter of the thecal sac encroaching the neural elements. Bilateral neuroforamina narrowing. L5-S1: Grade 1 retrolisthesis. Facet joint and ligamentum flavum hypertrophy. Reduced AP diameter of the thecal sac encroaching the neural elements. Bilateral neuroforamina stenosis encroaching the exiting nerve roots, left greater than the right side. Fatty atrophy of the lower lumbar muscles from L4 to sacrum. No prevertebral compartment hematoma, mass or fluid collection. Bilateral multifocal different sizes nonenhancing fluid signal characteristic lesions in the kidneys. There is a lobulated hyperintense T2 lesion in the right hepatic lobe no fully included Fat-containing umbilical hernia.. MR/MR lumbar spine wo/w con IMPRESSION: No enhancing lesion to suggest multiple myeloma or acute pathologic fracture. Multilevel lumbar spondylosis resulting in grade 1 retrolisthesis L5-S1 and grade 1 anterolisthesis L3-4 and L4-5 with central spinal canal and bilateral neuroforamina stenosis encroaching the neural elements more accentuated at L4-5 and to a lesser extent L3-4 and L5-S1. 5 mm synovial cyst, medial aspect right facet L3-4 level. Bilateral renal cysts. Cystic lesion right hepatic lobe. Electronically signed by: Germain Varela MD 11/05/2024 09:39 AM EST
--- OUTSIDE RECORDS SUMMARY | 2024-11-02 12:35 | XMS_ITS | Clinical Summary ---
Author Organization [facility] ity Address [address] [place] [address] Care Team Providers Care Ad Setter Name Role Phone Unavailable Primary Care Provider [...]
--- OUTSIDE RECORDS SUMMARY | 2024-11-02 12:35 | XMS_ITS | Continuity of Care Document ---
Author Organization [facility] [address] [place] [address] Phone [phone] Care Team Providers Care Fuel Manager Name Role Phone Emelia Domingoanna Care Team Information Soil Conservationist + [phone] Problems Active Problems Provider Date Trish thyroiditis [...] Medications SIG Qnty Indications Ordering Provider Date [id number] Tablets Take One Tablet By Mouth Every Day 90tabs Jose Luis Tenorio M.D. 05/25/2022 Metoprolol Succinate ER50mg Tablets ER 24HR Take One Tablet By Mouth Every Day Unknown Amlodipine Besylate2.5mg Tablets Take One Tablet By Mouth Every Day With 5MG CichonBetty Rosuvastatin Zfbqekc9df Tablets Take One Tablet By Mouth Every [...] uIU/mL 0.450-4.50 0 Laboratory test finding 08/26/2023 [facility] Reference [facility] TSH 0.66 uIU/mL (0.4-4.2) Medical [...]
--- OUTSIDE RECORDS SUMMARY | 2024-11-02 12:35 | XMS_ITS | Patient Health Record ---
Author Organization [facility] Address [address] [place] [address] Care Team Providers Care Stapler Coil Unit Name Role Phone Ratna Sheppard Unavailable [phone] Allergies Allergen (clinical drug ingredient) Drug/Non Drug Allergy documented on EMR Reaction Allergy Type Onset Date Status amoxicillin AMOXICILLIN RASH Drug Allergy Act flores aspirin ASPIRIN PAIN Drug Allergy Active Reason For Referral No Information Medications Medication SIG (Take, Route, Frequency, Duration) Notes Start Date End Date Status amLODIPine Besylate 5MG ORAL for -3 [facility] 04/19/2014 Active Ativan 1MG ORAL for -3 [facility] 04/19/2014 Active Coenzyme Q10 60MG ORAL for -3 [facility] 04/19/2014 Active Lumigan 0.01% Ophthalmic for -3 [facility] [place] 04/19/2014 Active Synthroid 75 MCG 1 ORAL daily for -3 [facility] 12/07/2011 Active Timoptic 0.5% Ophthalmic for -3 [facility] 04/19/2014 Active Valerian ORAL for -3 [facility] 12/07/2011 Active Vitamin D2 50,000 IU 1 ORAL weekly for -3 [facility] 12/07/19 12 Active Problems Problem Type SNOMED Code ICD Code Onset Dates Problem Status W/U Status Risk Notes Problem Midline cystocele (166091704) Cystocele, 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) Active confirmed Problem Hypothyroidism (46931955) Unspecified hypothyroidism (244.9) Active confirmed Major Problem Menopausal symptom (32204624) Symptomatic menopausal or female climacteric states (627.2) Active confirmed Major Problem Postmenopausal atrophic vaginitis (76999278) Postmenopausal atrophic vaginitis (627.3) Active confirmed Diag Problem Osteoarthritis (267031119) Osteoarthrosis, unspecified whether generalized or localized, unspecified site (715.90) Active confirmed Major Plan Of Treatment Pending Test Test Name Order Date COMPLETE URINALYSIS 10/28/2015 MM Digital Mammo Screening 11/18/2015 Insurance Providers Payer Name Payer Address Payer Phone Subscriber Number Group Number Insured Name Patient Relationship to Insured Coverage Start Date Coverage End Date MEDICARE [address] [place], [place] [id number] SANAM ANGEL Self - patient is the insured BCBS OF [facility] [address] [place] [address] [id number] SANAM ANGEL Self - patient is the [...]
[2024-11-02] MEDS: gadobutroL 7.5 ML VIAL IVPUSH (12:43)
== END 2024-11-02 11:27 | disposition home or self-care (01) ==
LOC: HO.MRI 11:26
PROVIDERS: PCP Internal Medicine; Visit Provider Nurse Practitioner Family
DX: D47.2 Monoclonal gammopathy (principal); M54.9 Dorsalgia, unspecified
CPT/HCPCS: 72158; 72197; A9585

== ENCOUNTER 2024-11-07 09:39 | Outpatient (REF) | payer MEDICARE, SELFPAY ==
--- NOTE | ~2024-11-07 | XR_ITS ---
EXAMINATION: XR FEMUR, LEFT CLINICAL INFORMATION: IGM MGUS; suspected lytic lesion lt femur on MRI COMPARISON: None. Correlation with MR pelvis 11/02/2024. TECHNIQUE: AP and lateral views of the left femur were obtained. FINDINGS: No fracture, dislocation, or suspicious bone lesion. In particular, no lucent lesions of the femoral diaphysis. No endosteal scalloping or cortical erosion. Enthesopathy of the greater trochanter. Mild degenerative changes left hip joint. Degenerative changes in the left knee joint. No significant knee joint effusion. Normal-appearing soft tissues. There is a probable pessary in the pelvis. XR/XR femur LT 2V IMPRESSION: There is no discrete radiographic evidence of lytic or blastic bone lesion in the left femur. Electronically signed by: Raffy Lenz MD 11/07/2024 02:33 PM [place]
[2024-11-07 11:06] LABS: Lactate Dehydrogenase 134 U/L (122-220); Lactate Dehydrogenase 139 U/L (122-220)
--- OUTSIDE RECORDS SUMMARY | 2024-11-07 11:09 | XMS_ITS | Continuity of Care Document ---
Author Organization [facility] [address] [place] [address] Phone [phone] Care Team Providers Care Top Polisher Name Role Phone Emelia Domingoanna Care Team Information Telecommunications Administrator + [phone] Problems Active Problems Provider Date Trish thyroiditis [...] Medications SIG Qnty Indications Ordering Provider Date [id number] Tablets Take One Tablet By Mouth Every Day 90tabs Jose Luis Tenorio M.D. 05/25/2022 Metoprolol Succinate ER50mg Tablets ER 24HR Take One Tablet By Mouth Every Day Unknown Amlodipine Besylate2.5mg Tablets Take One Tablet By Mouth Every Day With 5MG CichonBetty Rosuvastatin Rztdlvn2jo Tablets Take One Tablet By Mouth Every [...] uIU/mL 0.450-4.50 0 Laboratory test finding 08/26/2023 [facility] TSH 0.66 uIU/mL (0.4-4.2) Medical [...]
--- OUTSIDE RECORDS SUMMARY | 2024-11-07 11:09 | XMS_ITS | Clinical Summary ---
Author Organization [facility] ity Address [address] [place] [address] Care Team Providers Care Dietetic Aide Name Role Phone Unavailable Primary Care Provider [...]
[2024-11-07 11:50] LABS: Folate > 20.0 ng/mL (> or = 4.0); Vitamin B12 785 pg/mL (200-900)
[2024-11-08 13:28] LABS: Kappa Light Chain, Free Serum 19.1 mg/L (3.3-19.4); Kappa/Lambda Lt Ch Free Ratio 0.72 (0.26-1.65); Lambda Light Chain, Free Serum 26.7 mg/L (5.7-26.3)
== END 2024-11-07 09:40 | disposition home or self-care (01) ==
LOC: HO.LAB 09:39
PROVIDERS: PCP Internal Medicine; Visit Provider Nurse Practitioner Family
DX: D47.2 Monoclonal gammopathy (principal); M89.9 Disorder of bone, unspecified
CPT/HCPCS: 36415; 73552; 82607; 82746; 83521; 83615

== ENCOUNTER → 2024-11-07 09:58 | Outpatient (BNV) | payer MEDICARE, SELFPAY | PROVIDERS: PCP Internal Medicine; Visit Provider Radiology Diagnostic Radiology | DX: M89.552 Osteolysis, left thigh (principal) | CPT/HCPCS: 73552 ==

== ENCOUNTER 2024-12-13 12:37 | Outpatient (REF) | payer MEDICARE, SELFPAY ==
--- OUTSIDE RECORDS SUMMARY | 2024-12-13 13:39 | XMS_ITS | Continuity of Care Document ---
Author Organization [facility] [address] [place] [address] Phone [phone] Care Team Providers Care First Calender Worker Name Role Phone Emelia Domingoanna Care Team Information Supervisor [place] + [phone] Problems Active Problems Provider Date Trish thyroiditis [...] Medications SIG Qnty Indications Ordering Provider Date Iupnmctrw71rar Tablets Take One Tablet By Mouth Every Day 90tabs Jose Luis Tenorio M.D. 05/25/2022 Metoprolol Succinate ER50mg Tablets ER 24HR Take One Tablet By Mouth Every Day Unknown Amlodipine Besylate2.5mg Tablets Take One Tablet By Mouth Every Day With 5MG CichonBetty Rosuvastatin Lgkqtdk6qh Tablets Take One Tablet By Mouth Every [...] Facility Test Result H/L Range N ote TSH Rfx on Abnormal to Free T4 08/28/2024 [facility] TSH Rfx on Abnormal to Free T4 2.600 uIU/mL 0.450-4.50 0 TSH 08/26/2023 [facility] TSH 0.66 uIU/mL (0.4-4.2) [...]
--- OUTSIDE RECORDS SUMMARY | 2024-12-13 13:39 | XMS_ITS | Patient Health Record ---
Author Organization [facility] Address [address] [place] [address] Care Team Providers Care Fitness Floor Attendant Name Role Phone Ratna Sheppard Unavailable [phone] Allergies Allergen (clinical drug ingredient) Drug/Non Drug Allergy documented on EMR Reaction Allergy Type Onset Date Status amoxicillin AMOXICILLIN RASH Drug Allergy Act flores aspirin ASPIRIN PAIN Drug Allergy Active Reason For Referral No Information Medications Medication SIG (Take, Route, Frequency, Duration) Notes Start Date End Date Status amLODIPine Besylate 5MG ORAL for -3 [facility] 04/19/2014 Active Ativan 1MG ORAL for -3 [facility] 04/19/2014 Active Coenzyme Q10 60MG ORAL for -3 [facility] 04/19/2014 Active Lumigan 0.01% Ophthalmic for -3 [facility] 04/19/2014 Active Synthroid 75 MCG 1 ORAL daily for -3 [facility] 12/07/2011 Active Timoptic 0.5% Ophthalmic for -3 [facility] 04/19/2014 Active Valerian ORAL for -3 [facility] 12/07/2011 Active Vitamin D2 50,000 IU 1 ORAL weekly for -3 [facility] 12/07/19 12 Active Problems Problem Type SNOMED Code ICD Code Onset Dates Problem Status W/U Status Risk Notes Problem Midline cystocele (453567744) Cystocele, 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) Active confirmed Problem Hypothyroidism (12663996) Unspecified hypothyroidism (244.9) Active confirmed Major Problem Menopausal symptom (62133896) Symptomatic menopausal or female climacteric states (627.2) Active confirmed Major Problem Postmenopausal atrophic vaginitis (03011087) Postmenopausal atrophic vaginitis (627.3) Active confirmed Diag Problem Osteoarthritis (608521628) Osteoarthrosis, unspecified whether generalized or localized, unspecified site (715.90) Active confirmed Major Plan Of Treatment Pending Test Test Name Order Date COMPLETE URINALYSIS 10/28/2015 MM Digital Mammo Screening 11/18/2015 Insurance Providers Payer Name Payer Address Payer Phone Subscriber Number Group Number Insured Name Patient Relationship to Insured Coverage Start Date Coverage End Date MEDICARE [address] [place], [place] [id number] SANAM ANGEL Self - patient is the insured BCBS OF [facility] [address] [place] [address] [id number] SANAM ANGEL Self - patient is the [...]
--- OUTSIDE RECORDS SUMMARY | 2024-12-13 13:39 | XMS_ITS | Clinical Summary ---
Author Organization [facility] ity Address [address] [place] [address] Care Team Providers Care Wildlife Management Professor Name Role Phone Unavailable Primary Care Provider [...] Vaccines (1 of 2) 1987 RSV Immunization Adult Patie nts (1 - 1-dose 75+ series) 2012 COVID-19 [...]
[2024-12-13 17:38] LABS: MANUAL DIFF FLAG NO
[2024-12-13 18:02] LABS: Alanine Aminotransferase 11 U/L (0-31); Albumin Level 4.1 g/dL (3.5-5.0); Alkaline Phosphatase 53 U/L (39-117); Anion Gap 10 (12-20); Aspartate Amino Transferase 20 U/L (5-31); Bilirubin Total 0.3 mg/dL (0.0-1.0); Blood Urea Nitrogen 26 mg/dL (9-16); Calcium 9.2 mg/dL (8.4-10.2); Carbon Dioxide 27 mmol/L (22-29); Chloride 108 mmol/L (96-108); Estimated Glomerular Filt Rate > 60; Glucose Random 91 mg/dL (60-115); Potassium 4.7 mmol/L (3.3-5.1); Sodium 140 mmol/L (135-145); Total Protein 7.4 g/dL (6.5-8.0)
[2024-12-13 18:16] LABS: Basophils Absolute Auto 0.1 X10*3/uL (0.0-0.2); Basophils Percent Auto 1.6 % (0-2); Eosinophils Absolute Auto 0.1 X10*3/uL (0.0-0.4); Eosinophils Percent Auto 3.8 % (0-4); Hematocrit 35.2 % (37.0-47.0); Hemoglobin 11.3 g/dl (12.0-16.0); Lymphocytes Absolute Auto 1.4 X10*3/uL (1.2-4.9); Mean Corpuscular HGB Conc 32.1 g/dl (31.0-35.0); Mean Corpuscular Hemoglobin 32.2 pg (27.0-33.0); Mean Corpuscular Volume 100.3 fL (80.0-98.0); Mean Platelet Volume 10.2 fL (9.4-12.3); Monocytes Absolute Auto 0.4 X10*3/uL (0.1-1.2); Monocytes Percent Auto 10.6 % (2-11); Neutrophils Absolute Auto 1.7 x10*3/uL (2.0-8.3); Platelet Count 224 X10*3/uL (160-400); Red Blood Count 3.51 X10*6/uL (4.20-5.50); Red Cell Distribution Width 12.1 % (11.0-16.0); White Blood Count 3.7 X10*3/uL (4.8-10.8)
[2024-12-16 19:18] LABS: Viscosity 1.7 rel to H2O (1.5-1.9)
[2024-12-17 15:23] LABS: Kappa Light Chain, Free Serum 17.3 mg/L (3.3-19.4); Kappa/Lambda Lt Ch Free Ratio 0.66 (0.26-1.65); Lambda Light Chain, Free Serum 26.1 mg/L (5.7-26.3)
[2024-12-18 11:13] LABS: IgA 114 mg/dL (70-320); IgG 889 mg/dL (600-1540); IgM 1208 mg/dL (50-300)
== END 2024-12-13 12:38 | disposition home or self-care (01) ==
LOC: HO.HKASLDS 12:37
PROVIDERS: Visit Provider Nurse Practitioner Family
DX: D47.2 Monoclonal gammopathy (principal)
CPT/HCPCS: 36415; 80053; 82784; 83521; 85025; 85810; 86334

== ENCOUNTER 2024-12-14 07:37 | Outpatient (REF) | payer MEDICARE, SELFPAY ==
--- OUTSIDE RECORDS SUMMARY | 2024-12-14 07:42 | XMS_ITS | Clinical Summary ---
Author Organization [facility] ity Address [address] [place] [address] Care Team Providers Care Animal Assistant Name Role Phone Unavailable Primary Care Provider [...]
--- OUTSIDE RECORDS SUMMARY | 2024-12-14 07:42 | XMS_ITS | Patient Health Record ---
Author Organization [email or web address] Address [address] [place] [address] Care Team Providers Care Plumbing Manager Name Role Phone Ratna Sheppard Unavailable [phone] Allergies Allergen (clinical drug ingredient) Drug/Non Drug Allergy documented on EMR Reaction Allergy Type Onset Date Status amoxicillin AMOXICILLIN RASH Drug Allergy Act flores aspirin ASPIRIN PAIN Drug Allergy Active Reason For Referral No Information Medications Medication SIG (Take, Route, Frequency, Duration) Notes Start Date End Date Status amLODIPine Besylate 5MG ORAL for -3 [facility] 04/19/2014 Active Ativan 1MG ORAL for -3 [facility] 04/19/2014 Active Coenzyme Q10 60MG ORAL for -3 [facility] 04/19/2014 Active Lumigan 0.01% Ophthalmic for -3 [facility] 04/19/2014 Active Synthroid 75 MCG 1 ORAL daily for -3 [facility] 12/07/2011 Active Timoptic 0.5% Ophthalmic for -3 [facility] 04/19/2014 Active Valerian ORAL for -3 [facility] 12/07/2011 Active Vitamin D2 50,000 IU 1 ORAL weekly for -3 [facility] 12/07/19 12 Active Problems Problem Type SNOMED Code ICD Code Onset Dates Problem Status W/U Status Risk Notes Problem Midline cystocele (293212676) Cystocele, 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) Active confirmed Problem Hypothyroidism (11828981) Unspecified hypothyroidism (244.9) Active confirmed Major Problem Menopausal symptom (01300293) Symptomatic menopausal or female climacteric states (627.2) Active confirmed Major Problem Postmenopausal atrophic vaginitis (09192962) Postmenopausal atrophic vaginitis (627.3) Active confirmed Diag Problem Osteoarthritis (589633324) Osteoarthrosis, unspecified whether generalized or localized, unspecified site (715.90) Active confirmed Major Plan Of Treatment Pending Test Test Name Order Date COMPLETE URINALYSIS 10/28/2015 MM Digital Mammo Screening 11/18/2015 Insurance Providers Payer Name Payer Address Payer Phone Subscriber Number Group Number Insured Name Patient Relationship to Insured Coverage Start Date Coverage End Date MEDICARE [address] [place], [place] [id number] SANAM ANGEL Self - patient is the insured BCBS OF [facility] [address] [place] [address] [id number] SANAM ANGEL Self - patient is the [...]
--- OUTSIDE RECORDS SUMMARY | 2024-12-14 07:42 | XMS_ITS | Continuity of Care Document ---
Author Organization [facility] [address] [place] [address] Phone [phone] Care Team Providers Care Fish Hatchery Inspector Name Role Phone Jose L Betty Care Team Information Agricultural Research Technician + [phone] Problems Active Problems Provider Date Trish thyroiditis [...] Medications SIG Qnty Indications Ordering Provider Date Fujursyjm55qaq Tablets Take One Tablet By Mouth Every Day 90tabs Jose Luis Tenorio M.D. 05/25/2022 Metoprolol Succinate ER50mg Tablets ER 24HR Take One Tablet By Mouth Every Day Unknown Amlodipine Besylate2.5mg Tablets Take One Tablet By Mouth Every Day With 5MG CichonBetty Rosuvastatin Ppyyvxl7aj Tablets Take One Tablet By Mouth Every [...] T4 2.600 uIU/mL 0.450-4.50 0 TSH 08/26/2023 [facility] TSH 0.66 uIU/mL (0.4-4.2) [...]
== END 2024-12-14 07:38 | disposition home or self-care (01) ==
LOC: HO.LAB 07:37
PROVIDERS: Absent Provider Internal Medicine Medical Oncology; PCP Internal Medicine; Visit Provider Nurse Practitioner Family
DX: D47.2 Monoclonal gammopathy (principal)
CPT/HCPCS: 36415; 88184; 88185

== ENCOUNTER 2025-02-08 14:19 | Outpatient (AMB) | payer MEDICARE, SELFPAY ==
--- OUTSIDE RECORDS SUMMARY | 2025-02-08 14:22 | XMS_ITS | Clinical Summary ---
Author Organization [facility] ity Address [address] [place] [address] Care Team Providers Care Aircraft Part Assembler Name Role Phone Unavailable Primary Care Provider [...] - 2023-2 5 season) 2024 Influenza Vaccine (Season Ended) 2025 HIB Vaccines Aged Out No longer eligi [...] age to complete this topic Meningococcal B Vaccine Aged Out No l onger eligible based on patient's age to complete this topic RSV Immunization Patients Un toni 20 months Aged Out No longer eligible b ased on patient's age to complete this topic Varicella Vaccines Aged Out No longer eligible based on patient's age to complete this topic
--- NOTE | 2025-02-08 14:25 | MHC.PC.OV ---
Vital Signs 02/08/25 14:28 Height 5 ft 4 in Weight 144 lb 6 oz BMI 24.8 BP 120/78 Blood Pressure Location Lt brachial Position Sitting Respiration 20 Pulse 69 Pulse Source Pulse Oximeter Temp 97.4 F Temp Source Oral Pulse Oximetry (%) 99 Oxygen Delivery Method Room Air Intake Visit Reasons: Annual PE Intake Note: Pt is here for annual PE. Allergies amoxicillin [AMOXICILLIN] Allergy (Mild, Verified 02/08/25 14:29) RASH, hives Medication List - Last Reconciled 02/08/25 by Betty Domingo MD amlodipine 5 mg PO DAILY amlodipine 2.5 mg PO DAILY bimatoprost 0.01% (Lumigan) 1 drp ophthalmic (eye) QPM carboxymethylcellulose sodium 0.5% (Refresh Tears) 1 drp ophthalmic (eye) BID coenzyme Q10 (Co Q-10) 300 mg PO DAILY levothyroxine (Synthroid) 75 mcg PO DAILY metoprolol succinate ER 50 mg PO DAILY ey-rtm-ogtia-W4-qlzehmo-xadwtv 189-80-188-300 mcg (Centrum Silver Men) 1 tab PO DAILY [quercetin 500 mg PO DAILY] rosuvastatin (Crestor) 5 mg PO DAILY timolol maleate 0.5% 1 drp ophthalmic (eye) DAILY Tobacco use date assessed: 02/08/25 Fall risk assessment: No Falls in past year Last assessed Fall Risk: 02/08/25 Dental Screening Dental Screen Date: 02/08/25 Did you have a dental visit in the last 12 months?: Yes Did you have a dental problem in the last 6 months where you did not have access to dental care?: No Was dental information given to patient?: Patient has dentist HPI Annual PE HPI Details Patient presents for physical. She complains of multiple joint arthralgia and stiffness lately worse in the left shoulder. Patient denies joint swelling erythema warmth. She was evaluated by residential remodeling subcontractor at [place] but decided against bone marrow biopsy. She went for a 2nd opinion at [facility] and will follow-up there every 3 months. [facility] Medical History (Updated 02/08/25 @ 15:27 by Betty Domingo MD) MGUS (monoclonal gammopathy of unknown significance) Left shoulder pain Contusion of right chest wall Non-ST elevation IN (NSTEMI) Cough Knee pain, bilateral Vertigo HTN (hypertension) Osteoarthritis Kidney cysts Liver cyst Left nephrolithiasis Lumbar radiculopathy Neutropenia Female bladder prolapse Hyperlipidemia Hypothyroidism Anxiety Annual physical exam Surgical History No pertinent past surgical history Family History Father No problems noted. Mother Hypertension Social History Household Members: None Housing: House Do you presently have visiting nurse or other home services: No Alcohol intake: current Alcohol intake frequency: does not drink Alcohol type: beer Patient Tobacco Use Status: Former Tobacco user Tobacco use type: Cigarette Years Smoked: 20 e-Cigarette/Vaping Use: Never Used service: No Current occupational status: retired Cognitive needs: No Hearing needs: No Vision needs: Yes Questionnaire Thrive Questionnaire Date Thrive assessed: 02/08/25 I am a: Patient What is your living situation today?: I have a steady place to live Within the past 12 months, did the food you bought not last and you didn't have the money to get more?: Never true Within the past 12 months, did you worry whether your food would run out before you got money to buy more?: Never true Do you have trouble paying for medicines?: No Do you have trouble getting transportation to medical appointments?: No Do you have trouble paying your heating and electricity bill?: No Do you have trouble taking care of your child, family member or friend?: No Do you have trouble with day-to-day activities such as bathing, preparing meals, shopping, managing finances, etc.?: No Are you currently unemployed and looking for a job?: No Are you interested in more education?: No Please select the resources that you would like help with: None Currently or been in a relationship where the following occur: I choose not to answer THRIVE Score: 0 SIOMARA-7 AMB Questionnaire SIOMARA-7 Date SIOMARA - 7 assessed: 02/08/25 Source: Developed by Drs. Jeff Salter, Korin Chinchilla, Cam Nathan and colleagues, with an educational nancie from [employer] Review of Systems Const All systems reviewed & are unremarkable except as noted in HPI and below Eyes Reports no additional complaints ENT Reports no additional complaints Card Reports no additional complaints Resp Reports no additional complaints GI Reports no additional complaints Reports no additional complaints Physical exam (Primary Care) Vital Signs: Last Vital Signs Temp 97.4 F 02/08/25 14:28 Pulse 69 02/08/25 14:28 Resp 20 02/08/25 14:28 BP 100/58 L 02/08/25 14:28 Pulse Ox 99 02/08/25 14:28 Oxygen Delivery Method Room Air 02/08/25 14:28 BMI result Body Mass Index 24.8 Tobacco/Smoking Status: Tobacco use Status Tobacco use date assessed 02/08/25 02/08/25 14:39 Patient Tobacco Use Status Former Tobacco user 02/08/25 14:39 Tobacco use type Cigarette 02/08/25 14:39 e-Cigarette/Vaping Use Never Used 02/08/25 14:39 Thrive Assessment: Date of Thrive Assessment Date Thrive assessed 02/08/25 02/08/25 14:49 Currently or been in a relationship where the following occur: I choose not to answer Const General: no acute distress HENMT Head: Yes normal to inspection Face and sinus: Yes normal facial exam Mouth: Normal oral and palatal mucosa present Throat: Yes posterior oropharynx normal Eyes General: appearance normal, both eyes and all related structures Neck Neck: Yes supple Resp Effort & Inspection: normal respiratory effort Auscultation: clear to auscultation bilaterally Cardio Rhythm: regular rhythm Heart sounds: S1 normal heart sound present and S2 normal heart sound present GI Inspection: Yes normal to inspection Palpation (GI): Soft to palpation Percussion: Yes normal to percussion Auscultation: normal bowel sounds Extrem Other: There is tenderness anterior lateral aspect of left shoulder. There is a decreased range of motion with adduction and external rotation Coding Level of Care Code Est Pt Prev Care >65y(89839) Diagnoses Left shoulder pain M25.512 Hypothyroidism E03.9 Hyperlipidemia E78.5 HTN (hypertension) I10 Annual physical exam Z00.00 MGUS (monoclonal gammopathy of unknown significance) D47.2 Assessment & Plan Assessment & Plan (1) Left shoulder pain: Code(s): M25.512 - Pain in left shoulder Category: Medical Plan: Check x-ray and refer to physical therapy ([facility]I). Patient declined cortisone injection (2) Hypothyroidism: Code(s): E03.9 - Hypothyroidism, unspecified Category: Medical Plan: Continue levothyroxine (3) Hyperlipidemia: Code(s): E78.5 - Hyperlipidemia, unspecified Category: Medical Plan: Continue rosuvastatin (4) HTN (hypertension): Comment: BP goal less than 130/80 Code(s): I10 - Essential (primary) hypertension Category: Medical Plan: Continue current medications (5) Annual physical exam: Comment: Well-balanced diet Code(s): Z00.00 - Encounter for general adult medical examination without abnormal findings Category: Medical Plan: Well-balanced diet regular physical activity discussed with the patient follow-up in 4 months with a fasting labs before (6) MGUS (monoclonal gammopathy of unknown significance): Comment: IgM 1224(<300), IGM KAPPA MONOCLONAL BAND PRESENT 0.6 g , f/u with [facility] hematology q 3 mths Code(s): D47.2 - Monoclonal gammopathy Category: Medical Plan: Follow-up with [facility] Hematology Orders: Orders PT Evaluation and Treatment Today M25.512 - Pain in left shoulder XR shoulder LT min 2V Today M25.512 - Pain in left shoulder
[2025-02-08 14:28] VITALS: BP 120/78; PULSE 69; RESP 20; TEMP 36.3; O2SAT 99; BMI 24.8
== END 2025-02-08 15:22 | disposition home or self-care (01) ==
LOC: HO.HMCC 14:20
PROVIDERS: PCP Internal Medicine; Visit Provider Internal Medicine
DX: M25.512 Pain in left shoulder (principal); E03.9 Hypothyroidism, unspecified; E78.5 Hyperlipidemia, unspecified; I10 Essential (primary) hypertension; Z00.00 Encounter for general adult medical examination without abnormal findings; D47.2 Monoclonal gammopathy

== ENCOUNTER → 2025-02-08 14:19 | Outpatient (BNVA) | payer MEDICARE, SELFPAY | PROVIDERS: PCP Internal Medicine; Visit Provider Internal Medicine | DX: Z00.00 Encounter for general adult medical examination without abnormal findings (principal); M25.512 Pain in left shoulder; E03.9 Hypothyroidism, unspecified; E78.5 Hyperlipidemia, unspecified; I10 Essential (primary) hypertension; D47.2 Monoclonal gammopathy; Z79.899 Other long term (current) drug therapy | CPT/HCPCS: 99397 ==

== ENCOUNTER → 2025-04-11 13:54 | Outpatient (REF) | payer MEDICARE, SELFPAY ==
--- NOTE | 2025-04-11 13:57 | CA_ITS ---
Transthoracic Echocardiogram Patient (Last, First, Middle): Elise Brandon E Gender: Female Date of : 1935 Age: 89 Procedure Date: 04/11/2025 Procedure Type: Transthoracic Echocardiogram Location: OP Height: 162.56 cm Weight: 65.32 kg BSA: 1.70 m2 Heart Rate: bpm BP: 120 / 78 mmHg Cane Burner: LIZY Referring MD: Tano Tyson MD Symptoms: I51.81 - Takotsubo syndrome Study Quality: Fair Conclusions: - Essentially normal study Findings Procedure Information The study quality is limited by the patients inability to tolerate the test. Left Ventricle Normal left ventricular size, thickness, and systolic function. The visually estimated ejection fraction is between 60-65%. Spectral Doppler is indicative of an impaired relaxation filling pattern. E/E prime ratio is <8, consistent with normal filling pressures. Evidence suggests grade I (mild) diastolic dysfunction. Right Ventricle Normal right ventricular cavity size and systolic function. Atria Both atria are normal in size. There is no evidence of interatrial shunt. Aortic Valve Normal aortic valve structure and function. There is no aortic valve stenosis. There is no aortic valve regurgitation. Mitral Valve Normal mitral valve structure and function. There is trace mitral valve regurgitation. There is no mitral valve stenosis. Pulmonic Valve The pulmonic valve is likely normal. Tricuspid Valve Normal tricuspid valve structure. There is trace tricuspid valve regurgitation. The right ventricular systolic pressure is normal. The right ventricular systolic pressure is 24 mmHg. Normal right atrial pressure. There is no evidence of pulmonary hypertension. Great Vessels All visible segments of the aorta are normal in size. The pulmonary artery was not well visualized. Venous The inferior vena cava is normal in size and collapses greater than 50% with inspiration. Pericardium/Pleural There is no evidence of pericardial effusion. Prior Study Comparison No significant change compared to prior study dated: 06/07/2024. Measurements 2D Linear Measurements IVSd: 0.86 0.6-0.9/0.6-1.0 cm LVIDd: 3.94 3.9-5.3/4.2-5.9 cm LVIDd Index: 2.32 2.4-3.2/2.2-3.1 cm/m2 LVIDs: 2.58 2.0-3.6 cm LVPWd: 0.85 0.7-1.1 cm LA Diam: 2.30 2.7-3.8/3.0-4.0 cm LAIDs Index: 1.35 1.5-2.3 cm/m2 LV Mass: 124.27 67-162/88-224 g LV Mass Index: 73.10 43-95/49-115 g/m2 LVOT Diam: 2.10 3.0+(-)1.3 cm 2D Systolic Function EF 4C: 63.30 >55% EF 2C: 67.00 >55% EF BiP: 64.00 >55% Mitral Valve MV Pk E: 0.66 MV PK A: 0.81 MV Decel Time: 264.00 E/A: 0.80 E'Lateral: 8.92 E'Medial: 6.64 E/E' Med: 9.90 E/E' Lat: 7.40 PHT: 77.00 MVA PHT: 2.86 [place]el [place]: 2.48 Aortic Valve AoV Pk Jt: 0.85 AoV Mn Jt: 0.65 AoV VTI: 0.20 AoV Pk Grad: 3.00 Aov Mn Grad: 2.00 IRVIN Cont.VTI: 2.14 LVOT LVOT Pk Jt: 0.54 LVOT Mn Jt: 0.38 LVOT VTI: 0.13 LVOT Pk Grad: 1.00 LVOT Mn Grad: 1.00 LVOT Diam: 2.10 LVOT Area: 3.46 Diastolic Function MV Pk E: 0.66 MV Pk A: 0.81 E/A: 0.80 E'Medial: 6.64 E/E' Med: 9.90 E' Laterial: 8.92 E/E' Lat: 7.40 Right Ventricle TAPSE (mm): 24.00 TVS' Jt: 10.60 Tricuspid Valve TR Pk Jt: 2.31 TR Pk Grad: 21.00 RA Press: 3.00 RVSP: 24.00 Great Vessels Aorta Sinus of Valsalva: 2.94 2.0-3.5 cm Ao Asc: 3.30 2.1-3.4 cm Updated in Other Vendor System with Status of Final Tano Tyson MD electronically signed on 04/12/2025 10:49:57 AM with status of Final
--- OUTSIDE RECORDS SUMMARY | 2025-04-11 14:06 | XMS_ITS | Clinical Summary ---
Author Organization [facility] ity Address [address] [place] [address] Care Team Providers Care Lawn And Tree Service Spray Supervisor Name Role Phone Unavailable Primary Care Provider [...] Vaccine ( - 2023-2 5 season) 2024 Depression Screening 09/12/2024 Influenza Vaccine (#1) 2025 HIB Vaccines Aged Out No longer [...]
--- OUTSIDE RECORDS SUMMARY | 2025-04-11 14:06 | XMS_ITS | Clinical Summary ---
Author Organization [facility] Address [address] [place] [address] Phone Care Team Providers Care Cash Posting Clerk Name Role Phone Betty Domingo MD Primary Care Provider Encounters Date Type Department Care Team Description 02/19/2025 Orders Only [address] [place] [address] Campos Barillas MD, PhD Waldenstrom macroglobulinemia (Primary Dx) 01/15/2025 1:00 PM EDT Office Visit [address] [place] [address] Campos Barillas MD, PhD [place]strom macroglobulinemia (Primary Dx) from Last 3 Months Social History Tobacco Use Types Packs/Day Years Used Date Smoking Tobacco: Never Assessed Education Answer Date Recorded Are you interested in more education? Not on fatou e 01/01/2025 Are you concerned about learning? Not on file 01/01/2025 No 01/01/2025 No 01/01/2025 Digital Access Answer Date Recorded No 01/01/2025 No 01/01/2025 Reliable internet access at home? Not on file 01/01/2025 Device with a working camera? Not on file Comments Unknown Sex and Gender Information Value Date Recorded Sex Assigned at Female 12/28/2024 4:29 PM EDT Legal Sex Female 4:21 PM EDT Gender Identity Female 12/28/2024 4:29 PM EDT Sexual Orientation Straight 12/28/2024 4: 29 PM EDT Last Filed Vital Signs Vital Sign Reading Time Taken Comments Blood Pressure 116/61 01/15/2025 1:27 PM EDT Pulse 94 01/15/2025 1:27 PM EDT Temperature 36.2 C (97.2 F) 01/15/2025 1:27 PM EDT Respiratory Rate 18 01/15/2025 1:27 PM EDT Oxygen Saturation 100% 01/15/2025 1:27 PM EDT Inhaled Oxygen Concentration - - Weight 65.4 kg (144 lb 1.6 oz) 01/15/2025 1:27 P M EDT Height 160.2 cm (5' 3.07 ) 01/15/2025 1:27 PM ED T Body Mass Index 25.47 01/15/2025 1:27 PM EDT Plan of Treatment Upcoming Encounters Date Type Department Care Team (Late st Contact Info) Description 04/23/2025 7:00 AM EDT Blood Draw [address] [place] [address] Campos Barillas MD, PhD [address] [place] [address] [email or web address] 04/30/2025 11:40 AM EDT Telemedicine - audio only [address] [place] [address] Campos Barillas MD, PhD [address] [place] [phone] [email or web address] Maintenance Due Date Last Done Comments DEPRESSION SCREENING 1947 OSTEOPOROSIS SCREENING INITIAL (ONE-TIME) 2002 COVID-19 VACCINE ( season) 2025 12/20/2024, 03/27/2024, 06/18/2022, Additional history exists Adult Td,Tdap Booster 02/10/2034 02/11/2024 PNEUMOCOCCAL VACCINES (50+ years) Completed 02/14/2023, 02/02/2013 ZOSTER VACCINES Completed 09/19/2023, 07/07/2023 RSV VACCINE Completed 02/13/2024 HEPATITIS A VACCINES Aged Out No long er eligible based on patient's age to complete this topic HIB VACCINES Aged Out No longer eligi ble based on patient's age to complete this topic MENINGOCOCCAL VACCINES (ACWY) Aged Out No longer eligible based on patient's age to complete this topic MENINGOCOCCAL VACCINES (B) Aged Out N o longer eligible based on patient's age to complete this topic Medical Devices Not on file Procedures Procedure Name Priority Date/Time Associated Diagnosis Comments COLD AGGLUTININ TITER ROOM TEMP Routine 01/15/2025 2:38 PM EDT COLD AGGLUTININ TITER 30 DEGREEC Routine 01/15/2025 2:38 PM EDT COLD AGGLUTININ TITER 37 DEGREEC Routine 01/15/2025 2:38 PM EDT ABO AND RH Routine 01/15/2025 2:38 PM EDT DIRECT YIMI Routine 01/15/2025 2:38 PM EDT IMMUNOFIXATION ONLY Routine 01/15/2025 2 :38 PM EDT VITAMIN B12 Routine 01/15/2025 2:38 PM EDT Waldenstrom macroglobulinemia SEDIMENTATION RATE (ESR) Routine 01/15/2025 2:38 PM EDT Waldenstrom macroglobulinemia RETICULOCYTES Routine 01/15/2025 2:38 PM EDT Waldenstrom macroglobulinemia METHYLMALONIC ACID, SERUM Routine 01/15/2025 2:38 PM EDT Waldenstrom macroglobulinemia IRON AND IRON BINDING CAPACITY Routine 01/15/2025 2:38 PM EDT Wal[facility]strom macroglobulinemia HAPTOGLOBIN Routine 01/15/2025 2:38 PM EDT Waldenstrom macroglobulinemia FOLATE Routine 01/15/2025 2:38 PM EDT Waldenstrom macroglobulinemia FERRITIN Routine 01/15/2025 2:38 PM EDT Waldenstrom macroglobulinemia ERYTHROPOIETIN LEVEL Routine 01/15/2025 2:38 PM EDT Waldenstrom macroglobulinemia CRYOGLOBULINS Routine 01/15/2025 2:38 PM EDT Waldenstrom macroglobulinemia IGM KAPPA/LAMBDA (HEVYLITE IGM) Routine 01/15/2025 2:38 PM EDT Waldenstrom macroglobulinemia SPEP PANEL Routine 01/15/2025 2:38 PM EDT Wal[facility]strom macroglobulinemia PHOSPHORUS Routine 01/15/2025 2:38 PM EDT Waldenstrom macroglobulinemia MAGNESIUM Routine 01/15/2025 2:38 PM EDT Waldenstrom macroglobulinemia LDH Routine 01/15/2025 2:38 PM EDT Waldenstrom macroglobulinemia FREE LIGHT CHAINS, SERUM Routine 01/15/2025 2:38 PM EDT Waldenstrom macroglobulinemia COMPREHENSIVE METABOLIC PANEL Routine 01/15/2025 2:38 PM EDT Waldenstrom macroglobulinemia CBC AND DIFFERENTIAL Routine 01/15/2025 2:38 PM EDT Waldenstrom macroglobulinemia BETA-2 MICROGLOBULIN, BLOOD Routine 01/15/2025 2:38 PM EDT Waldenstrom macroglobulinemia from Last 3 Months Results * (ABNORMAL) IgM kappa/lambda (Hevylite IgM) (01/15/2025 2:38 PM EDT) IMMUNOGLOBULIN M 1,258(H) 53 - 334 mg/dL [facility] IgM ([place]) 835(H) 19 - 163 mg/dL [facility] Comment:Result checked IgM (Lambda) Credit 12 - 101 mg/dL [facility] Comment:REAGENT UNAVAILABLE IgM ([place]/Lambda ratio) Hevy-Lite K/L ratio cannot be calculate d. 1.18 - 2.74 [facility] 01/15/2025 2:38 PM EDT 01/15/2025 2:45 PM EDT us Campos Barillas MD, PhD LAB BLOOD ORDERABLES F inal Result [address] [address] * Immunofixation only (01/15/2025 2:38 PM EDT) Pathologist [facility] IMMUNOFIXATION There is a 0.63 g/dl IgM kappa M component in the gamma region. [facility] Comment: M-components at concentrations of 0.05 to 0.5 grams per dl, previously designated as very low and low concentration bands, may be seen in patients with treated MM. Also, unusual forms of MM, such as IgD myeloma and the light chain version of MM in which the M-component seldom exceeds 0.2 grams per dl, cold agglutinin disease, Type II cryoproteinemia, CLL and other B cell lymphomas, chronic infection, AIDS, Sjogren's syndrome, immune-mediated neuropathies and amyloidosis. M-components of various concentrations are the product of an expanded clone of B-lymphocytes or plasma cells. If clinical evaluation reveals no other evidence of a lymphoproliferative process, then it seems prudent to determine the stability of the finding at 4-6 month intervals during the first year and, if stable, at yearly intervals, thereafter. In monoclonal gammopathy of uncertain significance (MGUS), the M-component is usually present in concentration of 0.5 to 3 grams per dl, and in multiple myeloma (MM), the concentration of M-component is usually 3 to 5 grams per dl. Performing Pathologist, Eva Hunter M.D., Ph.D. [id number] 01/15/2025 2:38 PM EDT 01/15/2025 2:45 PM EDT Campos Barillas MD, PhD LAB BLOOD ORDERABLES F inal Result Performing Organization Address City/[facility]/ZIP Co de Phone Number [address] [address] * Direct Yimi (01/15/2025 2:38 PM EDT) Expiration Date of Sample 01/18/2025 11:59 PM [facility] Direct Yimi (Direct Antiglobulin Test) Negative 01/16/2025 10:47 AM EDT [facility] Resulting Agency [facility] 01/15/2025 2:38 PM EDT 01/15/2025 6:04 PM EDT Blood Bank BLOOD BANK TEST ORDERABLES Final Result Performing Organization Address [facility] Co de Phone Number [address] [address] * Reticulocytes (01/15/2025 2:38 PM EDT) RETIC 1.6 0.7 - 2.5 % [facility] 01/15/2025 2:38 PM EDT 01/15/2025 2:44 PM EDT Campos Barillas MD, PhD LAB BLOOD ORDERABLES F inal Result Performing Organization Address City/[facility] Co de Phone Number [facility] [address] [place] [address] * Cryoglobulins (01/15/2025 2:38 PM EDT) CRYOPROTEIN None present. [facility] Comment: Performing Physician, Ihsan Cerda M.D., [id number] Normal: None present 01/15/2025 2:38 PM EDT 01/15/2025 2:39 PM EDT Campos Barillas MD, PhD LAB BLOOD ORDERABLES F inal Result [facility] [address] [place] [address] * LDH (01/15/2025 2:38 PM EDT) LDH 153 110 - 210 U/L [facility] 01/15/2025 2:38 PM EDT 01/15/2025 2:45 PM EDT Campos Barillas MD, PhD LAB BLOOD ORDERABLES F inal Result [facility] [address] [place] [address] * Comprehensive metabolic panel (01/15/2025 2:38 PM EDT) SODIUM 141 135 - 145 mmol/L [facility] POTASSIUM 4.3 3.4 - 5.0 mmol/L [facility] CHLORIDE 104 98 - 108 mmol/L [facility] CO2 26 23 - 32 mmol/L [facility] BUN 20 8 - 25 mg/dL [facility] CREATININE 0.78 0.50 - 1.00 mg/dL [facility] GLUCOSE 89 70 - 110 mg/dL [facility] ALBUMIN 4.5 3.3 - 5.0 g/dL [facility] TOTAL PROTEIN 7.9 6.0 - 8.3 g/dL [facility] CALCIUM 9.5 8.5 - 10.5 mg/dL [facility] ALKALINE PHOSPHATASE 53 30 - 100 U/L [facility] TOTAL BILIRUBIN 0.4 0.0 - 1.0 mg/dL [facility] AST 18 9 - 32 U/L [facility] ALT 9 7 - 33 U/L [facility] GLOBULIN 3.4 1.9 - 4.1 g/dL [facility] EGFR 73 >59 mL/min/1.7 3m2 [facility] Comment:Estimated glomerular filtration rate calculated using the CKD-EPI refit equation. ANION GAP 11 3 - 17 mmol/L [facility] 01/15/2025 2:38 PM EDT 01/15/2025 2:45 PM EDT Result [facility] Campos Barillas MD, PhD LAB BLOOD ORDERABLES F inal Result Performing Organization Address City/[facility]/ZIP Co de Phone Number [facility] [address] [place] [address] * (ABNORMAL) SPEP panel (01/15/2025 2:38 PM EDT) Total Protein 7.3 6.0 - 8.3 g/dL [facility] IMMUNOGLOBULIN G 943 614 - 1,295 mg/dL [facility] IgA 119 69 - 309 mg/dL [facility] IMMUNOGLOBULIN M 1,199(H) 53 - 334 mg/dL [facility] SPEP Abnormal pattern [facility] Comment: Banding present. Please see Immunofixation for final results. Performing Pathologist, Eva Hunter M.D., Ph.D. [id number] Serum protein electrophoresis results should be evaluated in the context of separately reported serum free light chain levels and ratio when these additional results are available. 01/15/2025 2:38 PM EDT 01/15/2025 2:45 PM EDT Result [facility] Campos Barillas MD, PhD LAB BLOOD ORDERABLES F inal Result Performing Organization Address City/[facility] Co de Phone Number [facility] [address] [place] [address] * Cold Agglutinin titer room temp (01/15/2025 2:38 PM EDT) Expiration Date of Sample 11:59 PM [facility] Cold Agglutinin Titer Room Temp Titer <1:1 01/16/2025 11:31 AM EDT [facility] Resulting Agency [facility] 01/15/2025 2:38 PM EDT 01/15/2025 6:04 PM EDT Blood Bank BLOOD BANK TEST ORDERABLES Final Result [address] [address] * Cold Agglutinin titer 37 degreeC?? (01/15/2025 2:38 PM EDT) Expiration Date of Sample 11:59 PM [facility] Cold Agglutinin Titer 37 degreeC Titer <1:1 01/16/2025 10:48 AM EDT [facility] Resulting Agency [facility] 01/15/2025 2:38 PM EDT 01/15/2025 6:04 PM EDT Result [facility] Blood Bank BLOOD BANK TEST ORDERABLES Final Result Performing Organization Address [facility] Co de Phone Number [address] [address] * Cold Agglutinin titer 30 degreeC (01/15/2025 2:38 PM EDT) Expiration Date of Sample 11:59 PM [facility] Cold Agglutinin Titer 30 degreeC Titer <1:1 01/16/2025 10:49 AM EDT [facility] Resulting Agency [facility] 01/15/2025 2:38 PM EDT 01/15/2025 6:04 PM EDT Result [facility] Blood Bank BLOOD BANK TEST ORDERABLES Final Result Performing Organization Address City/[facility]/ZIP Co de Phone Number [address] [address] * Erythropoietin level (01/15/2025 2:38 PM EDT) ERYTHROPOIETIN 18.4 2.6 - 18.5 mIU/mL [facility] 01/15/2025 2:38 PM EDT 01/15/2025 2:45 PM EDT Campos Barillas MD, PhD LAB BLOOD ORDERABLES F inal Result [facility] [address] [place] [place] [address] * Methylmalonic acid, serum (01/15/2025 2:38 PM EDT) Pathologist [facility] METHYLMALONIC ACID 0.10 <=0.40 nmol/mL [facility] DPT OF LAB MED AND PAT+ Comment: (NOTE) ADDITIONAL INFORMATION This test was developed and its performance characteristics determined by [facility] in a manner consistent with CLIA requirements. This test has not been cleared or approved by the U.S. Food and Drug Administration. 01/15/2025 2:38 PM EDT 01/15/2025 2:45 PM EDT Campos Barillas MD, PhD LAB BLOOD ORDERABLES F inal Result Performing Organization Address City/[facility]/ZIP Co de Phone Number [facility] DPT OF LAB MED AND PAT+ [address] [place] [address] * Iron and iron binding capacity (01/15/2025 2:38 PM EDT) Pathologist [facility] IRON 75 30 - 160 ug/dL [facility] IRON BINDING CAPACITY 286 230 - 404 ug/dL [facility] TRANSFERRIN SATURAT. 26 14 - 50 % [facility] 01/15/2025 2:38 PM EDT 01/15/2025 2:45 PM EDT Campos Barillas MD, PhD LAB BLOOD ORDERABLES F inal Result [facility] [address] [place] [address] * Free light chains, serum (01/15/2025 2:38 PM EDT) FREE KAPPA LT CHAIN 18.4 3.3 - 19.4 mg/L [facility] FREE LAMBDA LT CHAIN 25.6 5.7 - 26.3 mg/L [facility] FREE KAPPA LAMBDA RAT 0.72 0.30 - 1.70 [facility] 01/15/2025 2:38 PM EDT 01/15/2025 2:45 PM EDT Campos Barillas MD, PhD LAB BLOOD ORDERABLES F inal Result Performing Organization Address City/[facility]/ZIP Co de Phone Number [address] [address] * ABO and Rh (01/15/2025 2:38 PM EDT) Expiration Date of Sample 01/18/2025 11:59 PM [facility] ABO O 01/16/2025 9:17 AM EDT [facility] Rh Positive 01/16/2025 9:17 AM EDT [facility] Resulting Agency [facility] 01/15/2025 2:38 PM EDT 01/15/2025 6:04 PM EDT Blood Bank BLOOD BANK TEST ORDERABLES Final Result Performing Organization Address [facility]/ZIP Co de Phone Number [address] [address] * (ABNORMAL) Sedimentation rate (ESR) (01/15/2025 2:38 PM EDT) ESR 61(H) 0 - 29 mm/h [facility] 01/15/2025 2:38 PM EDT 01/15/2025 2:44 PM EDT Campos Barillas MD, PhD LAB BLOOD ORDERABLES F inal Result Performing Organization Address City/[facility]/ZIP Co de Phone Number [facility] [address] [place] [address] * (ABNORMAL) CBC and differential (01/15/2025 2:38 PM EDT) WBC 3.42(L) 4.00 - 11.00 K/uL [facility] RBC 3.59(L) 4.00 - 5.20 M/uL [facility] HGB 11.7(L) 12.0 - 16.0 g/dL [facility] HCT 35.4(L) 36.0 - 46.0 % [facility] PLT 227 150 - 450 K/uL [facility] MCV 98.6 80.0 - 100.0 fL [facility] MCH 32.6(H) 27.0 - 31.0 pg [facility] MCHC 33.1 32.0 - 36.0 g/dL [facility] RDW 11.9 11.5 - 14.5 % [facility] MPV 9.6 8.4 - 12.0 fL [facility] NRBC 0.00 0.00 /100 WBCs [facility] ABSOLUTE NRBC 0.00 0.00 K/uL [facility] DIFF [employer] [facility] NEUTS 41.2(L) 48.0 - 76.0 % [facility] LYMPHS 44.4(H) 18.0 - 41.0 % [facility] MONOS 7.3 4.0 - 11.0 % [facility] EOS 5.3(H) 0.0 - 5.0 % [facility] BASOS 1.5 0.0 - 1.5 % [facility] % IMMATURE GRANS 0.3 0.0 - 0.9 % [facility] ABSOLUTE NEUTS 1.41(L) 1.92 - 7.60 K/uL [facility] ABSOLUTE LYMPHS 1.52 0.72 - 4.10 K/uL [facility] ABSOLUTE MONOS 0.25 0.16 - 1.10 K/uL [facility] ABSOLUTE EOS 0.18 0.00 - 0.50 K/uL [facility] ABSOLUTE BASOS 0.05 0.00 - 0.15 K/uL [facility] ABS IMMATURE GRANS 0.01 0.00 - 0.09 K/uL [facility] Blood 01/15/2025 2:38 PM EDT 01/15/2025 2:44 PM EDT us Campos Barillas MD, PhD LAB BLOOD ORDERABLES F inal Result [facility] [address] [place] [address] * Phosphorus (01/15/2025 2:38 PM EDT) PHOSPHORUS 2.9 2.6 - 4.5 mg/dL [facility] 01/15/2025 2:38 PM EDT 01/15/2025 2:45 PM EDT Campos Barillas MD, PhD LAB BLOOD ORDERABLES F inal Result [facility] [address] [place] [address] * Magnesium (01/15/2025 2:38 PM EDT) Pathologist [facility] MAGNESIUM 2.2 1.7 - 2.4 mg/dL [facility] 01/15/2025 2:38 PM EDT 01/15/2025 2:45 PM EDT Campos Barillas MD, PhD LAB BLOOD ORDERABLES F inal Result [facility] [address] [place] [address] * Haptoglobin (01/15/2025 2:38 PM EDT) HAPTOGLOBIN 89 30 - 200 mg/dL [facility] 01/15/2025 2:38 PM EDT 01/15/2025 2:45 PM EDT Campos Barillas MD, PhD LAB BLOOD ORDERABLES F inal Result [facility] [address] [place] [address] * Folate (01/15/2025 2:38 PM EDT) FOLIC ACID >20.0 >4.7 ng/mL [facility] 01/15/2025 2:38 PM EDT 01/15/2025 2:45 PM EDT Campos Barillas MD, PhD LAB BLOOD ORDERABLES F inal Result [address] [address] * (ABNORMAL) Ferritin (01/15/2025 2:38 PM EDT) FERRITIN 205(H) 10 - 200 ug/L [facility] 01/15/2025 2:38 PM EDT 01/15/2025 2:45 PM EDT us Campos Barillas MD, PhD LAB BLOOD ORDERABLES F inal Result Performing Organization Address City/[facility] Co de Phone Number [address] [address] * Vitamin B12 (01/15/2025 2:38 PM EDT) VITAMIN B12 809 >231 pg/mL [facility] 01/15/2025 2:38 PM EDT 01/15/2025 2:45 PM EDT us Campos Barillas MD, PhD LAB BLOOD ORDERABLES F inal Result Performing Organization Address [facility] Co de Phone Number [address] [address] * Beta-2 microglobulin, blood (01/15/2025 2:38 PM EDT) BETA 2 MICROGLOBUL 2.05 0.80 - 2.34 mcg/mL [facility] 01/15/2025 2:38 PM EDT 01/15/2025 2:45 PM EDT us Campos Barillas MD, PhD LAB BLOOD ORDERABLES F inal Result Performing Organization Address City/[facility]/ZIP Co de Phone Number [address] [address] from Last 3 Months Insurance [employer] [facility]IC[facility] [employer]ET[employer] PPO MEDICARE REPLACEMENT [employer] PPO MEDICARE REPLACEMENT [employer] PPO MEDICARE REPLACEMENT Care Teams Cash Posting Clerk Relationship Specialty Start Date End Date Betty Domingo MD [address] [place] [address] PCP - General Internal Medicine 12/28/24 Additional Source Comments The information contained in this document represents components of the legal health record. It is not the complete legal health record[facility]
--- OUTSIDE RECORDS SUMMARY | 2025-04-11 14:06 | XMS_ITS | Continuity of Care Document ---
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 Onset: 1 10/31/2022 Anxiety Jose Luis Tenorio M.D. Onset: 1 10/31/2022 Essential hypertension Joes Luis Tenorio M.D. O nset: 08/30/2023 Anemia Jose Luis Tenorio M.D. 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 Onset: 08/30/2023 Hypercholesterolemia Jose Luis Tenorio M.D. Ons et: 08/30/2023 Pleurisy Jose Luis Tenorio M.D. Onset: 1 10/31/2022 Social History Type Date Description Comments Sex Female Sex Unknown Tobacco Use Start: Unknown Never Smoked Cigarettes ETOH Use Denies alcohol use Allergies and adverse reactions Active Allergies Criticality Reaction Severity Comments Date Amoxicillin Unable to assess criticality 08/30/2023 Aspirin Unable to assess criticality 08/30/2023 Erythromycin Unable to assess criticality 08/30/2023 Medications Active Medications SIG Qnty Indications Ordering Provider Date [id number] Tablets Take One Tablet By Mouth Every Day 90tabs Jose Luis Tenorio M.D. 05/25/2022 Metoprolol Succinate ER50mg Tablets ER 24HR Take One Tablet By Mouth Every Day Unknown Amlodipine Besylate2.5mg Tablets Take One Tablet By Mouth Every Day With 5MG CichoBetty oliva Rosuvastatin Dmbbafh3yr Tablets Take One Tablet By Mouth Every Day CicviveknBetty Timolol Maleate0.5% Solution Instill One Drop In [...] T4 2.600 uIU/mL 0.450-4.50 0 TSH 08/26/2023 [facility] TSH 0.66 uIU/mL (0.4-4.2) Medical Devices Description No Information Available Encounters Type Date Location Provider Dx Diagnosis Office Visit 08/30/2024 9:15a Main Office Jose Luis Tenorio M.D. E03.9 Hypothyroidism, unspecified Assessments Date Code Description Provider 08/30/2024 E03.9 Hypothyroidism, unspecified Jose Luis Tneorio M.D. Plan of Treatment Future Appointment(s):* 09/02/2025 9:15 am - Jose Luis Tenorio M.D. at Main Office 08/30/2024 - Jose Luis Tenorio M.D.* E03.9 Hypothyroidism, unspecified* New Labs:* TSH RFX On Abnormal To Free T4, Ordered: 08/30/24 Functional Status Description No Information Available Mental Status Description No Information Available Referrals Description No Information Available
--- OUTSIDE RECORDS SUMMARY | 2025-04-11 14:07 | XMS_ITS | Patient Health Record ---
Author Organization [facility] Address [address] [place] [address] Care Team Providers Care Cone Worker Name Role Phone Ratna Sheppard Unavailable [phone] Allergies Allergen (clinical drug ingredient) Drug/Non Drug Allergy documented on EMR Reaction Allergy Type Onset Date Status amoxicillin AMOXICILLIN RASH Drug Allergy Act flores aspirin ASPIRIN PAIN Drug Allergy Active Reason For Referral No Information Medications Medication SIG (Take, Route, Frequency, Duration) Notes Start Date End Date Status amLODIPine Besylate 5MG ORAL; Duration: -3 [facility] 014 Active Ativan 1MG ORAL; Duration: -3 [facility]- 04/19/2014 Active Coenzyme Q10 60MG ORAL; Duration: -3 [facility]- 04/19/2014 Active Lumigan 0.01% Ophthalmic; Duration: -3 [facility]- 04/19/2014 Active Synthroid 75 MCG 1 ORAL daily; Duration: -3 [facility] 2011 Active Timoptic 0.5% Ophthalmic; Duration: -3 [facility] 04/19/2014 Active Valerian ORAL; Duration: -3 [facility]- 12/07/2011 Active Vitamin D2 50,000 IU 1 ORAL weekly; Duration: -3 [facility]- 0 12/07/2011 Active Problems Problem Type SNOMED Code ICD Code Onset Dates Problem Status W/U Status Risk Notes Problem Midline cystocele (969069231) Cystocele, 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) Active confirmed Problem Hypothyroidism (29164539) Unspecified hypothyroidism (244.9) Active confirmed Major Problem Menopausal symptom (33058805) Symptomatic menopausal or female climacteric states (627.2) Active confirmed Major Problem Postmenopausal atrophic vaginitis (86290689) Postmenopausal atrophic vaginitis (627.3) Active confirmed Diag Problem Osteoarthritis (952115187) Osteoarthrosis, unspecified whether generalized or localized, unspecified site (715.90) Active confirmed Major Plan Of Treatment Pending Test Test Name Order Date COMPLETE URINALYSIS 10/28/2015 MM Digital Mammo Screening 11/18/2015 Insurance Providers Payer Name Payer Address Payer Phone Subscriber Number Group Number Insured Name Patient Relationship to Insured Coverage Start Date Coverage End Date MEDICARE [address] [place], [place] [id number] SANAM ANGEL Self - patient is the insured BCBS OF [facility] [address] [place] [address] [id number] SANAM ANGEL Self - patient is the [...]
== END ==
LOC: HO.CARD 13:54
PROVIDERS: PCP Internal Medicine; Visit Provider Internal Medicine Cardiovascular Disease
DX: I51.81 Takotsubo syndrome (principal); I10 Essential (primary) hypertension
CPT/HCPCS: 93306

== ENCOUNTER → 2025-04-11 13:57 | Outpatient (BNV) | payer MEDICARE, SELFPAY | PROVIDERS: PCP Internal Medicine; Visit Provider Internal Medicine Cardiovascular Disease | DX: I51.81 Takotsubo syndrome (principal) | CPT/HCPCS: 93306 ==

== ENCOUNTER 2025-05-24 09:47 | Outpatient (AMB) | payer MEDICARE, SELFPAY ==
[2025-05-24 10:14] VITALS: BP 110/54; PULSE 86; RESP 16; TEMP 37.1; O2SAT 98; BMI 24.7
--- NOTE | 2025-05-24 10:14 | AM.OFFWIN_ITS ---
Intake Vital Signs 05/24/25 10:14 Height 5 ft 4 in Weight 144 lb BMI 24.7 BP 110/54 L Blood Pressure Location Lt brachial Position Sitting Respiration 16 Pulse 86 Pulse Source Pulse Oximeter Temp 98.8 F Temp Source Oral Pulse Oximetry (%) 98 Oxygen Delivery Method Room Air Intake Visit Reasons: ep coughing, sore throat, sneezing Patient Tobacco Use Status: Former Tobacco user Curtain Inspector Required: No Accompanied by: Self / Same As Patient Allergies amoxicillin (AMOXICILLIN) Allergy (Mild, Verified 05/24/25 10:18) RASH, hives HPI HPI Comments History of Present Illness Details This is an 89-year-old female with a past medical history of MGUS, hypertension, cardiomyopathy, hypothyroidism and hyperlipidemia presenting for evaluation of a cough, scratchy throat and poor sleep that she has had for the past 2 days since working in her garden. Patient does state that she received her influenza immunization and COVID vaccine on Tuesday, 5 days ago. She denies having any fevers or chills, ear pain, difficulty swallowing, chest pain or shortness for breath and took NyQuil only once without relief of her symptoms. [facility] Medical History (Updated 05/24/25 @ 11:04 by Carolyne Guzman PA-C) MGUS (monoclonal gammopathy of unknown significance) Left shoulder pain Contusion of right chest wall Non-ST elevation NE (NSTEMI) Cough Knee pain, bilateral Vertigo HTN (hypertension) Osteoarthritis Kidney cysts Liver cyst Left nephrolithiasis Lumbar radiculopathy Neutropenia Female bladder prolapse Hyperlipidemia Hypothyroidism Anxiety Annual physical exam Surgical History No pertinent past surgical history Family History Father No problems noted. Mother Hypertension Social History Household Members: None Housing: House Do you presently have visiting nurse or other home services: No Alcohol intake: current Alcohol intake frequency: does not drink Alcohol type: beer Patient Tobacco Use Status: Former Tobacco user Tobacco use type: Cigarette Years Smoked: 20 e-Cigarette/Vaping Use: Never Used service: No Current occupational status: retired Cognitive needs: No Hearing needs: No Vision needs: Yes Review of Systems Const All systems reviewed & are unremarkable except as noted in HPI and below Denies body aches, Denies chills, Denies daytime sleepiness, Reports difficulty sleeping, Denies fatigue, Denies fever(s) and Denies headache(s) Eyes Reports no additional complaints ENT Reports no additional complaints, Denies otalgia, Denies headache(s), Denies od ynophagia, Denies post nasal drip and Reports sore throat ( scratchy ) Card Reports no additional complaints, Denies chest pain and Denies dyspnea Resp Reports cough, Denies pain with cough, Denies dyspnea, Denies stridor and Denies wheezing GI Reports no additional complaints and Denies odynophagia Reports no additional complaints Musc Reports no additional complaints Skin/Breast Reports system reviewed and no additional complaints, except as documented Neuro Reports no additional complaints and Denies headache(s) Psych Reports no additional complaints Endo Denies fatigue Aller/Immun Denies wheezing Physical Exam Exam Exam: Well appearing female looking significantly younger than stated age. Vital Signs: Last Vital Signs Temp 98.8 F 05/24/25 10:14 Pulse 86 05/24/25 10:14 Resp 16 05/24/25 10:14 BP 110/54 L 05/24/25 10:14 Pulse Ox 98 05/24/25 10:14 Oxygen Delivery Method Room Air 05/24/25 10:14 BMI result Body Mass Index 24.7 Const General: cooperative, healthy appearing, comfortable, no acute distress, well developed, alert, awake and Physically active; No acute distress, diaphoretic, ill appearing or lethargic Nutritional Appearance: average body habitus Orientation/consciousness: patient oriented x3 and No lethargic Limitations: no limitations HEENT Head: Yes normal to inspection Ears: hearing grossly normal bilaterally, external ears normal, TM's normal bilaterally and EAC's normal General nose exam: Normal external nose present Face and sinus: Yes normal facial exam, Yes sinuses nontender and No sinus tenderness Mouth: Normal oral and palatal mucosa present, oropharynx normal and moist mucous membranes Throat: Yes posterior oropharynx normal and No postnasal drainage Eyes General: appearance normal, both eyes and all related structures Neck Lymphatic: no lymphadenopathy noted Resp Effort & Inspection: normal respiratory effort, able to speak in complete sentences, no audible wheezes, no cough, not labored, no nasal flaring and not tachypneic Auscultation: clear to auscultation bilaterally Cardio Rate: regular rate Rhythm: regular rhythm Skin General skin exam: no rashes or lesions noted Neuro General: patient oriented x3 Psych Appearance: grossly normal Mental Status: mental status grossly normal Insight: Good insight present (Psych) Judgement: Good judgement present (Psych) Assessment & Plan Assessment & Plan (1) Pharyngitis: Comment: There is no evidence of a bacterial pharyngitis and patient denies having any difficulty swallowing. Patient is well-appearing, afebrile and in no acute distress. Code(s): J02.9 - Acute pharyngitis, unspecified Qualifiers: Pharyngitis/tonsillitis etiology: unspecified etiology Qualified Code(s): J02.9 - Acute pharyngitis, unspecified Plan: Saltwater gargles, Tylenol or ibuprofen as needed for discomfort. (2) Cough: Comment: Patient denies having any chest pain or overt shortness for breath. Patient will follow up with her primary care provider within 7-10 days if her symptoms do not resolve. Code(s): R05.9 - Cough, unspecified Qualifiers: Cough type: acute Qualified Code(s): R05.1 - Acute cough Plan: Increase clear fluids daily, tea with honey twice daily and Diphenhydramine 12.5mg at bedtime only as needed. Coding Level of Care Code Est Pt Level 3 (13092) Diagnoses Pharyngitis, unspecified etiology J02.9 Pharyngitis/tonsillitis etiology: unspecified etiology Acute cough R05.1 Cough type: acute Time Spent (min) 20
--- OUTSIDE RECORDS SUMMARY | 2025-05-24 10:59 | XMS_ITS | Encounter Summary ---
Author Organization [facility] Address [address] [place] [address] Phone Care Team Providers Care Cook Mayonnaise Name Role Phone Betty Domingo MD Primary Care Provider [phone] Encounter Details Date Type Department Care Team (Late st Contact Info) Description 05/02/2025 Documentation [facility] [address] [place] [address] [phone] [email or web address] Social History Tobacco Use Types Packs/Day Years [...] Orientation Straight 12/28/2024 4: 29 PM EDT documented as of this encounter Plan of Treatment Upcoming Encounters Date Type Department Care Team (Late Contact Info) Description 07/02/2025 1:30 PM EDT Procedure visit [address] [place] [address] Campos Barillas MD, PhD [address] [place] [address] [phone] [place] [address] [email or web address] documented as of this encounter Visit Diagnoses Not on filedocumented in this encounter Care Teams Cook Mayonnaise Relationship Specialty Start Date End Date Betty Domingo MD [address] [address] PCP - General Internal Medicine 12/28/24 documented as of this encounter Additional Source Comments The information contained in this document represents components of the legal health record. It is not the complete legal health record.[facility]
--- OUTSIDE RECORDS SUMMARY | 2025-05-24 10:59 | XMS_ITS | Clinical Summary ---
Author Organization [facility] ity Address [address] [place] [address] Care Team Providers Care Coal Cager Name Role Phone Unavailable Primary Care Provider [...] nts (1 - 1-dose 75+ series) 2012 Depression Screening 09/12/2024 COVID-19 Vaccine ( - 2023-2 5 season) 2025 Influenza Vaccine (#1) 2025 HIB Vaccines Aged [...]
--- OUTSIDE RECORDS SUMMARY | 2025-05-24 11:00 | XMS_ITS | Clinical Summary ---
Author Organization [facility] Address [address] [place] [address] Phone Care Team Providers Care Port Purser Name Role Phone Betty Domingo MD Primary Care Provider [phone] Medications amLODIPine (NORVASC) 5 MG tablet Take 1.5 tablets by mouth every morning. 5 Active LUMIGAN 0.01 % Drop Place 1 drop into each eye nightly at bedtime. 5 Active timolol (ISTALOL) 0.5 % DrpD ophthalmic solution Place 1 drop into each eye daily. Active metoprolol succinate (TOPROL-XL) 50 MG 24 hr tablet Take 50 mg by mouth daily. Active rosuvastatin (CRESTOR) 5 MG tablet Take 5 mg by mouth daily. Active multivitamin-m inerals-lutein (CENTRUM SILVER) Tab Take 1 tablet by mouth daily. Active COLLAGEN MISC by Miscellaneous route. Active omega-3/dha/ep a/dpa/fish oil (OMEGA-3 2100 ORAL) Take by mouth. Activ e COQ10, UBIQUINOL, ORAL Take 300 mg by mouth. Active lutein-zeaxant hin 10-2 mg Chew Take by mouth. Activ e ASHWAGANDHA EXTRACT ORAL Take by mouth. Ac tive Encounters Date Type Department Care Team Description 05/02/2025 Documentation [facility] [address] [place] [address] Nicole Carver [facility] 04/30/2025 11:40 AM EDT Telemedicine - audio only [address] [facility] [address] [place] [address] Campos Barillas MD, PhD Waldenstrom macroglobulinemia (Primary [...] Care Team (Late st Contact Info) Description 07/02/2025 1:30 PM EDT Procedure visit [address] [place] [address] Campos Barillas MD, PhD [address] [place] [address] [phone] [place] [address] (work) [email or web address] Maintenance Due Date Last Done Comments DEPRESSION SCREENING 1949 OSTEOPOROSIS SCREENING INITIAL (ONE-TIME) 2002 INFLUENZA VACCINE (#1) 2025 , 07/05/2022, 08/09/2017 COVID-19 VACCINE ( season) 2025 12/20/2024, 03/27/2024, [...] Procedure Name Priority Date/Time Associated Diagnosis Comments IGM KAPPA/LAMBDA (HEVYLITE IGM) Routine 04/23/2025 7:21 AM EDT [place] macroglobulinemia SPEP PANEL Routine 04/23/2025 7:21 AM EDT [place] macroglobulinemia PHOSPHORUS Routine 04/23/2025 7:21 AM EDT [place] macroglobulinemia MAGNESIUM Routine 04/23/2025 7:21 AM EDT [place] macroglobulinemia LDH Routine 04/23/2025 7:21 AM EDT [place] macroglobulinemia FREE LIGHT CHAINS, SERUM Routine 04/23/2025 7:21 AM EDT [place] macroglobulinemia COMPREHENSIVE METABOLIC PANEL Routine 04/23/2025 7:21 AM EDT [place] macroglobulinemia CBC AND DIFFERENTIAL Routine 04/23/2025 7:21 AM EDT [place] macroglobulinemia BETA-2 MICROGLOBULIN, BLOOD Routine 04/23/2025 7:21 AM EDT [place] macroglobulinemia from Last 3 Months Results * (ABNORMAL) IgM kappa/lambda (Hevylite IgM) (04/23/2025 7:21 AM EDT) IMMUNOGLOBULIN M 1,367(H) 53 - 334 mg/dL [facility] IgM ([place]) 721(H) 19 - 163 mg/dL [facility] Comment:Result checked IgM (Lambda) Cancelled 12 - 101 mg/dL [facility] Comment:REAGENT UNAVAILABLE IgM ([place]/Lambda ratio) Hevy-Lite K/L ratio cannot be calculated. 1.18 - 2.74 [facility] 04/23/2025 7:21 AM EDT 04/23/2025 7:26 AM EDT Campos Barillas MD, PhD LAB BLOOD ORDERABLES F inal Result [facility] [address] [place] [address] * (ABNORMAL) LDH (04/23/2025 7:21 AM EDT) Pathologist [facility] LDH 246(H) 110 - 210 U/L [facility] Comment:Hemolysis present, r esult falsely increased. 04/23/2025 7:21 AM EDT 04/23/2025 7:26 AM EDT Campos Barillas MD, PhD LAB BLOOD ORDERABLES F inal Result [facility] [address] [place] [address] * Comprehensive metabolic panel (04/23/2025 7:21 AM EDT) SODIUM 141 135 - 145 mmol/L [facility] POTASSIUM 4.7 3.4 - 5.0 mmol/L [facility] Comment:Hemolysis present, r esult falsely increased. CHLORIDE 104 98 - 108 mmol/L [facility] CO2 26 23 - 32 mmol/L [facility] BUN 19 8 - 25 mg/dL [facility] CREATININE 0.85 0.50 - 1.00 mg/dL [facility] GLUCOSE 97 70 - 110 mg/dL [facility] ALBUMIN 4.2 3.3 - 5.0 g/dL [facility] TOTAL PROTEIN 7.7 6.0 - 8.3 g/dL [facility] CALCIUM 9.3 8.5 - 10.5 mg/dL [facility] ALKALINE PHOSPHATASE 54 30 - 100 U/L [facility] TOTAL BILIRUBIN 0.4 0.0 - 1.0 mg/dL [facility] AST 30 9 - 32 U/L [facility] Comment:Hemolysis present, r esult falsely increased. ALT 12 7 - 33 U/L [facility] GLOBULIN 3.5 1.9 - 4.1 g/dL [facility] EGFR 66 >59 mL/min/1.7 3m2 [facility] Comment:Estimated glomerular filtration rate calculated using the CKD-EPI refit equation. ANION GAP 11 3 - 17 mmol/L [facility] 04/23/2025 7:21 AM EDT 04/23/2025 7:26 AM EDT Campos Barillas MD, PhD LAB BLOOD ORDERABLES F inal Result [facility] [address] [place] [address] * (ABNORMAL) SPEP panel (04/23/2025 7:21 AM EDT) Pathologist [facility] Total Protein 7.4 6.0 - 8.3 g/dL [facility] IMMUNOGLOBULIN G 915 614 - 1,295 mg/dL [facility] IgA 124 69 - 309 mg/dL [facility] IMMUNOGLOBULIN M 1,270(H) 53 - 334 mg/dL [facility] SPEP Abnormal pattern. There is a 0.64 g/dl band in the gamma region, previously identified as an IgM kappa M component. Serum protein electrophoresis results should be evaluated in the context of separately reported serum free light chain levels and ratio when these additional results are available. [facility] Comment:Dave wing M.D., Director Clinical Immunology Laboratory [id number] 04/23/2025 7:21 AM EDT 04/23/2025 7:27 AM EDT Campos Barillas MD, PhD LAB BLOOD ORDERABLES F inal Result Performing Organization Address [facility] [employer] de Phone Number [address] [address] * (ABNORMAL) Free light chains, serum (04/23/2025 7:21 AM EDT) FREE KAPPA LT CHAIN 22.1(H) 3.3 - 19.4 mg/L [facility] FREE LAMBDA LT CHAIN 27.3(H) 5.7 - 26.3 mg/L [facility] FREE KAPPA LAMBDA RAT 0.81 0.30 - 1.70 [facility] 04/23/2025 7:21 AM EDT 04/23/2025 7:27 AM EDT Campos Barillas MD, PhD LAB BLOOD ORDERABLES F inal Result Performing Organization Address [facility] [employer] de Phone Number [address] [address] * (ABNORMAL) CBC and differential (04/23/2025 7:21 AM EDT) WBC 2.87(L) 4.00 - 11.00 K/uL [facility] RBC 3.47(L) 4.00 - 5.20 M/uL [facility] HGB 11.3(L) 12.0 - 16.0 g/dL [facility] HCT 34.6(L) 36.0 - 46.0 % [facility] PLT 231 150 - 450 K/uL [facility] MCV 99.7 80.0 - 100.0 fL [facility] MCH 32.6(H) 27.0 - 31.0 pg [facility] MCHC 32.7 32.0 - 36.0 g/dL [facility] RDW 11.9 11.5 - 14.5 % [facility] MPV 10.0 8.4 - 12.0 fL [facility] NRBC 0.00 0.00 /100 WBCs [facility] ABSOLUTE NRBC 0.00 0.00 K/uL [facility] DIFF METHOD Auto [facility] GEN ERAL [facility] NEUTS 35.6(L) 48.0 - 76.0 % [facility] LYMPHS 45.3(H) 18.0 - 41.0 % [facility] MONOS 10.8 4.0 - 11.0 % [facility] EOS 6.3(H) 0.0 - 5.0 % [facility] BASOS 1.7(H) 0.0 - 1.5 % [facility] % IMMATURE GRANS 0.3 0.0 - 0.9 % [facility] ABSOLUTE NEUTS 1.02(L) 1.92 - 7.60 K/uL [facility] ABSOLUTE LYMPHS 1.30 0.72 - 4.10 K/uL [facility] ABSOLUTE MONOS 0.31 0.16 - 1.10 K/uL [facility] ABSOLUTE EOS 0.18 0.00 - 0.50 K/uL [facility] ABSOLUTE BASOS 0.05 0.00 - 0.15 K/uL [facility] ABS IMMATURE GRANS 0.01 0.00 - 0.09 K/uL [facility] Blood 04/23/2025 7:21 AM EDT 04/23/2025 7:26 AM EDT us Campos Barillas MD, PhD LAB BLOOD ORDERABLES F inal Result [facility] [address] [place] [address] * Phosphorus (04/23/2025 7:21 AM EDT) PHOSPHORUS 3.5 2.6 - 4.5 mg/dL [facility] 04/23/2025 7:21 AM EDT 04/23/2025 7:26 AM EDT Campos Barillas MD, PhD LAB BLOOD ORDERABLES F inal Result [facility] [address] [place] [address] * Magnesium (04/23/2025 7:21 AM EDT) MAGNESIUM 2.1 1.7 - 2.4 mg/dL [facility] 04/23/2025 7:21 AM EDT 04/23/2025 7:26 AM EDT Result [facility] Campos Barillas MD, PhD LAB BLOOD ORDERABLES F inal Result Performing Organization Address City/[facility]/ZIP Co de Phone Number [facility] [address] [place] [address] * Beta-2 microglobulin, blood (04/23/2025 7:21 AM EDT) BETA 2 MICROGLOBUL 2.02 0.80 - 2.34 mcg/mL [facility] 04/23/2025 7:21 AM EDT 04/23/2025 7:27 AM EDT Result [facility] Campos Barillas MD, PhD LAB BLOOD ORDERABLES F inal Result [address] [address] from Last 3 Months Insurance [employer] PPO MEDICARE REPLACEMENT [employer] PPO MEDICARE REPLACEMENT [employer] PPO MEDICARE REPLACEMENT [employer] P[employer] MEDICARE REPLACEMENT [employer] PPO MEDICARE REPLACEMENT [employer] PPO MEDICARE REPLACEMENT Care Teams Port Purser Relationship Specialty Start Date End Date Betty Domingo MD [address] [place] [address] PCP - General Internal Medicine 12/28/24 Additional Source Comments The information contained in this document represents components of the legal health record. It is not the complete legal health record.[facility]
--- OUTSIDE RECORDS SUMMARY | 2025-05-24 11:00 | XMS_ITS | Patient Health Record ---
Author Organization [facility] Address [address] [place] [address] Care Team Providers Care Mainspring Fabrication Supervisor Name Role Phone Ratna Sheppard Unavailable [phone] Allergies Allergen (clinical drug ingredient) Drug/Non Drug Allergy documented on EMR Reaction Allergy Type Onset Date Status amoxicillin AMOXICILLIN RASH Drug Allergy Act flores aspirin ASPIRIN PAIN Drug Allergy Active Reason For Referral No Information Medications Medication SIG (Take, Route, Frequency, Duration) Notes Start Date End Date Status amLODIPine Besylate 5MG ORAL; Duration: [place]3 [facility] [place] Active Ativan 1MG ORAL; Duration: -3 [facility] [place] 04/19/2014 Active Coenzyme Q10 60MG ORAL; Duration: -3 [facility] [place] 04/19/2014 Active Lumigan 0.01% Ophthalmic; Duration: -3 [facility] [place] 04/19/2014 Active Synthroid 75 MCG 1 ORAL daily; Duration: -3 [facility] [place] 2011 Active Timoptic 0.5% Ophthalmic; Duration: -3 [facility] [place] 04/19/2014 Active Valerian ORAL; Duration: -3 [facility] [place] 12/07/2011 Active Vitamin D2 50,000 IU 1 ORAL weekly; Duration: -3 [facility]- 0 12/07/2011 Active Problems Problem Type SNOMED Code ICD Code Onset Dates Problem Status W/U Status Risk Notes Problem Midline cystocele (226397346) Cystocele, 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) Active confirmed Problem Hypothyroidism (80381501) Unspecified hypothyroidism (244.9) Active confirmed Major Problem Menopausal symptom (59520054) Symptomatic menopausal or female climacteric states (627.2) Active confirmed Major Problem Postmenopausal atrophic vaginitis (61623185) Postmenopausal atrophic vaginitis (627.3) Active confirmed Diag Problem Osteoarthritis (717563491) Osteoarthrosis, unspecified whether generalized or localized, unspecified site (715.90) Active confirmed Major Plan Of Treatment Pending Test Test Name Order Date COMPLETE URINALYSIS 10/28/2015 MM Digital Mammo Screening 11/18/2015 Insurance Providers Payer Name Payer Address Payer Phone Subscriber Number Group Number Insured Name Patient Relationship to Insured Coverage Start Date Coverage End Date MEDICARE [address] [place], [place] [id number] SANAM ANGEL Self - patient is the insured BCBS OF [facility] [address] [place] [address] [id number] SANAM ANGEL Self - patient is the [...]
--- OUTSIDE RECORDS SUMMARY | 2025-05-24 11:00 | XMS_ITS | Continuity of Care Document ---
Author Organization [facility] [address] [place] [address] Phone [phone] Care Team Providers Care Grain Handler Name Role Phone Emelia Domingoanna Care Team Information Welder Assembler [phone] Problems Active Problems Provider Date Trish thyroiditis Jose Luis Tneorio M.D. On set: 08/30/2023 Hypothyroidism Jose Luis [...] Medications SIG Qnty Indications Ordering Provider Date [id number] Tablets Take One Tablet By Mouth Every Day 90tabs Jose Luis Tenorio M.D. 05/25/2022 Metoprolol Succinate ER50mg Tablets ER 24HR Take One Tablet By Mouth Every Day Unknown Amlodipine Besylate2.5mg Tablets Take One Tablet By Mouth Every Day With 5MG CichoBetty oliva Rosuvastatin Zpqhkrd8cb Tablets Take One Tablet By Mouth Every [...] T4 2.600 uIU/mL 0.450-4.50 0 TSH 08/26/2023 [facility] TSH 0.66 [...]
== END 2025-05-24 11:01 | disposition home or self-care (01) ==
PROVIDERS: PCP Internal Medicine; Visit Provider Physician Assistant
DX: J02.9 Acute pharyngitis, unspecified (principal); R05.1 Acute cough

== ENCOUNTER → 2025-05-24 09:47 | Outpatient (BNVA) | payer MEDICARE, SELFPAY | PROVIDERS: PCP Internal Medicine; Visit Provider Physician Assistant | DX: I10 Essential (primary) hypertension (principal); J02.9 Acute pharyngitis, unspecified; R05.1 Acute cough | CPT/HCPCS: 99212 ==

== ENCOUNTER 2025-06-05 06:20 | Outpatient (REF) | payer MEDICARE, SELFPAY ==
--- OUTSIDE RECORDS SUMMARY | 2025-06-05 06:24 | XMS_ITS | Clinical Summary ---
Author Organization [facility] Address [address] [place] [address] Care Team Providers Care Bottle Tester Name Role Phone Unavailable Primary Care Provider [...]
--- OUTSIDE RECORDS SUMMARY | 2025-06-05 06:24 | XMS_ITS | Encounter Summary ---
Author Organization [facility] Address [address] [place] [address] Phone Care Team Providers Care Washer Operator Name Role Phone Betty Domingo MD Primary Care Provider [phone] Encounter Details Date Type Department Care Team (Late st Contact Info) Description 05/02/2025 Documentation [facility] [address] [place] [address] [phone] [email or web address] Social History Tobacco Use Types Packs/Day Years [...] Description 07/02/2025 1:30 PM EDT Procedure visit [address] [place] [address] Campos Barillas MD, PhD [address] [place] [address] [phone] [place] [address] [email or web address] documented as of this encounter Visit Diagnoses Not on filedocumented in this encounter Care Teams Washer Operator Relationship Specialty Start Date End Date Betty Domingo MD [address] [address] PCP - General Internal Medicine 12/28/24 documented as of this encounter Additional Source Comments The information contained in this document represents components of the legal health record. It is not the complete legal health record.[facility]
--- OUTSIDE RECORDS SUMMARY | 2025-06-05 06:25 | XMS_ITS | Patient Health Record ---
Author Organization [facility] Address [address] [place] [address] Care Team Providers Care Personnel Technician Name Role Phone Ratna Sheppard Unavailable [phone] Allergies Allergen (clinical drug ingredient) Drug/Non Drug Allergy documented on EMR Reaction Allergy Type Onset Date Status amoxicillin AMOXICILLIN RASH Drug Allergy Act flores aspirin ASPIRIN PAIN Drug Allergy Active Reason For Referral No Information Medications Medication SIG (Take, Route, Frequency, Duration) Notes Start Date End Date Status amLODIPine Besylate 5MG ORAL; Duration: -3 [facility] [place] 014 Active Ativan 1MG ORAL; Duration: -3 [facility] [place]- 04/19/2014 Active Coenzyme Q10 60MG ORAL; Duration: -3 [facility] [place]- 04/19/2014 Active Lumigan 0.01% Ophthalmic; Duration: -3 [facility] [place]- 04/19/2014 Active Synthroid 75 MCG 1 ORAL daily; Duration: -3 [facility] [place]- 2011 Active Timoptic 0.5% Ophthalmic; Duration: -3 [facility] [place]- 04/19/2014 Active Valerian ORAL; Duration: -3 [facility] [place]- 12/07/2011 Active Vitamin D2 50,000 IU 1 ORAL weekly; Duration: -3 [facility]- 0 12/07/2011 Active Problems Problem Type SNOMED Code ICD Code Onset Dates Problem Status W/U Status Risk Notes Problem Midline cystocele (313102871) Cystocele, 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) Active confirmed Problem Hypothyroidism (72713031) Unspecified hypothyroidism (244.9) Active confirmed Major Problem Menopausal symptom (08158257) Symptomatic menopausal or female climacteric states (627.2) Active confirmed Major Problem Postmenopausal atrophic vaginitis (97086995) Postmenopausal atrophic vaginitis (627.3) Active confirmed Diag Problem Osteoarthritis (992611919) Osteoarthrosis, unspecified whether generalized or localized, unspecified site (715.90) Active confirmed Major Plan Of Treatment Pending Test Test Name Order Date COMPLETE URINALYSIS 10/28/2015 MM Digital Mammo Screening 11/18/2015 Insurance Providers Payer Name Payer Address Payer Phone Subscriber Number Group Number Insured Name Patient Relationship to Insured Coverage Start Date Coverage End Date MEDICARE [address] [place], [place] [id number] SANAM ANGEL Self - patient is the insured BCBS OF [facility] [address] [place] [address] [id number] SANAM ANGEL Self - patient is the [...]
--- OUTSIDE RECORDS SUMMARY | 2025-06-05 06:25 | XMS_ITS | Clinical Summary ---
Author Organization [facility] Address [address] [place] [address] Phone Care Team Providers Care Health Science Specialist Name Role Phone Betty Domingo MD Primary Care Provider [phone] Medications amLODIPine (NORVASC) 5 MG tablet Take [...] Type Department Care Team Description 05/02/2025 Documentation [facility] [address] [place] [address] Nicole Carver [facility] 04/30/2025 11:40 AM EDT Telemedicine - audio only [address] [facility] [address] [place] [address] Campos Barillas MD, PhD Waldenstrom macroglobulinemia (Primary [...] Description 07/02/2025 1:30 PM EDT Procedure visit [address] [place] [address] Campos Barillas MD, PhD [address] [place] [address] [phone] [place] [address] (work) [email or web address] Health Maintenance Due Date Last Done Comments [...] IMMUNOGLOBULIN M 1,367(H) 53 - 334 mg/dL [facility] IgM ([place]) 721(H) 19 - 163 mg/dL [facility] Comment:Result checked IgM (Lambda) Cancelled 12 - 101 mg/dL [facility] Comment:REAGENT UNAVAILABLE IgM ([place]/Lambda ratio) Hevy-Lite K/L ratio cannot be calculated. 1.18 - 2.74 [facility] 04/23/2025 7:21 AM EDT 04/23/2025 7:26 AM EDT Campos Barillas MD, PhD LAB BLOOD ORDERABLES F inal Result [facility] [address] [place] [address] * (ABNORMAL) LDH (04/23/2025 7:21 AM EDT) Pathologist [facility] LDH 246(H) 110 - 210 U/L [facility] Comment:Hemolysis present, r esult falsely increased. 04/23/2025 7:21 AM EDT 04/23/2025 7:26 AM EDT Campos Barillas MD, PhD LAB BLOOD ORDERABLES F inal Result [facility] [address] [place] [address] * Comprehensive metabolic panel (04/23/2025 7:21 AM EDT) SODIUM 141 135 - 145 mmol/L [facility] POTASSIUM 4.7 3.4 - 5.0 mmol/L [facility] Comment:Hemolysis present, r esult falsely increased. CHLORIDE 104 98 - 108 mmol/L [facility] CO2 26 23 - 32 mmol/L [facility] BUN 19 8 - 25 mg/dL [facility] CREATININE 0.85 0.50 - 1.00 mg/dL [facility] GLUCOSE 97 70 - 110 mg/dL [facility] ALBUMIN 4.2 3.3 - 5.0 g/dL [facility] TOTAL PROTEIN 7.7 6.0 - 8.3 g/dL [facility] CALCIUM 9.3 8.5 - 10.5 mg/dL [facility] ALKALINE PHOSPHATASE 54 30 - 100 U/L [facility] TOTAL BILIRUBIN 0.4 0.0 - 1.0 mg/dL [facility] AST 30 9 - 32 U/L [facility] Comment:Hemolysis present, r esult falsely increased. ALT 12 7 - 33 U/L [facility] GLOBULIN 3.5 1.9 - 4.1 g/dL [facility] EGFR 66 >59 mL/min/1.7 3m2 [facility] Comment:Estimated glomerular filtration rate calculated using the CKD-EPI refit equation. ANION GAP 11 3 - 17 mmol/L [facility] 04/23/2025 7:21 AM EDT 04/23/2025 7:26 AM EDT Campos Barillas MD, PhD LAB BLOOD ORDERABLES F inal Result [facility] [address] [place] [address] * (ABNORMAL) SPEP panel (04/23/2025 7:21 AM EDT) Pathologist [facility] Total Protein 7.4 6.0 - 8.3 g/dL [facility] IMMUNOGLOBULIN G 915 614 - 1,295 mg/dL [facility] IgA 124 69 - 309 mg/dL [facility] IMMUNOGLOBULIN M 1,270(H) 53 - 334 mg/dL [facility] SPEP Abnormal pattern. There is a 0.64 g/dl band in the gamma region, previously identified as an IgM kappa M component. Serum protein electrophoresis results should be evaluated in the context of separately reported serum free light chain levels and ratio when these additional results are available. [facility] Comment:Dave wing M.D., Director Clinical Immunology Laboratory [id number] 04/23/2025 7:21 AM EDT 04/23/2025 7:27 AM EDT Campos Barillas MD, PhD LAB BLOOD ORDERABLES F inal Result Performing Organization Address [facility] Co de Phone Number [address] [address] * (ABNORMAL) Free light chains, serum (04/23/2025 7:21 AM EDT) FREE KAPPA LT CHAIN 22.1(H) 3.3 - 19.4 mg/L [facility] FREE LAMBDA LT CHAIN 27.3(H) 5.7 - 26.3 mg/L [facility] FREE KAPPA LAMBDA RAT 0.81 0.30 - 1.70 [facility] 04/23/2025 7:21 AM EDT 04/23/2025 7:27 AM EDT Campos Barillas MD, PhD LAB BLOOD ORDERABLES F inal Result Performing Organization Address [facility] Co de Phone Number [address] [address] * (ABNORMAL) CBC and differential (04/23/2025 7:21 AM EDT) WBC 2.87(L) 4.00 - 11.00 K/uL [facility] RBC 3.47(L) 4.00 - 5.20 M/uL [facility] HGB 11.3(L) 12.0 - 16.0 g/dL [facility] HCT 34.6(L) 36.0 - 46.0 % [facility] PLT 231 150 - 450 K/uL [facility] MCV 99.7 80.0 - 100.0 fL [facility] MCH 32.6(H) 27.0 - 31.0 pg [facility] MCHC 32.7 32.0 - 36.0 g/dL [facility] RDW 11.9 11.5 - 14.5 % [facility] MPV 10.0 8.4 - 12.0 fL [facility] NRBC 0.00 0.00 /100 WBCs [facility] ABSOLUTE NRBC 0.00 0.00 K/uL [facility] DIFF METHOD Auto [facility] GEN ERAL [facility] NEUTS 35.6(L) 48.0 - 76.0 % [facility] LYMPHS 45.3(H) 18.0 - 41.0 % [facility] MONOS 10.8 4.0 - 11.0 % [facility] EOS 6.3(H) 0.0 - 5.0 % [facility] BASOS 1.7(H) 0.0 - 1.5 % [facility] % IMMATURE GRANS 0.3 0.0 - 0.9 % [facility] ABSOLUTE NEUTS 1.02(L) 1.92 - 7.60 K/uL [facility] ABSOLUTE LYMPHS 1.30 0.72 - 4.10 K/uL [facility] ABSOLUTE MONOS 0.31 0.16 - 1.10 K/uL [facility] ABSOLUTE EOS 0.18 0.00 - 0.50 K/uL [facility] ABSOLUTE BASOS 0.05 0.00 - 0.15 K/uL [facility] ABS IMMATURE GRANS 0.01 0.00 - 0.09 K/uL [facility] Blood 04/23/2025 7:21 AM EDT 04/23/2025 7:26 AM EDT us aCmpos Barillas MD, PhD LAB BLOOD ORDERABLES F inal Result [facility] [address] [place] [address] * Phosphorus (04/23/2025 7:21 AM EDT) PHOSPHORUS 3.5 2.6 - 4.5 mg/dL [facility] 04/23/2025 7:21 AM EDT 04/23/2025 7:26 AM EDT Campos Barillas MD, PhD LAB BLOOD ORDERABLES F inal Result [facility] [address] [place] [address] * Magnesium (04/23/2025 7:21 AM EDT) MAGNESIUM 2.1 1.7 - 2.4 mg/dL [facility] 04/23/2025 7:21 AM EDT 04/23/2025 7:26 AM EDT Result [facility] Campos Barillas MD, PhD LAB BLOOD ORDERABLES F inal Result Performing Organization Address City/[facility]/ZIP Co de Phone Number [facility] [address] [place] [phone] * Beta-2 microglobulin, blood (04/23/2025 7:21 AM EDT) BETA 2 MICROGLOBUL 2.02 0.80 - 2.34 mcg/mL [facility] 04/23/2025 7:21 AM EDT 04/23/2025 7:27 AM EDT Result [facility] Campos Barillas MD, PhD LAB BLOOD ORDERABLES F inal Result [address] [address] from Last 3 Months Insurance [employer] PPO MEDICARE REPLACEMENT [employer] PPO MEDICARE REPLACEMENT [employer] P[employer] MEDICARE REPLACEMENT [employer] P[employer] MEDICARE REPLACEMENT [employer] P[employer] MEDICARE REPLACEMENT [employer] PPO MEDICARE REPLACEMENT Care Teams Health Science Specialist Relationship Specialty Start Date End Date Betty Domingo MD [address] [place] [address] PCP - General Internal Medicine 12/28/24 Additional Source Comments The information contained in this document represents components of the legal health record. It is not the complete legal health record.[facility]
--- OUTSIDE RECORDS SUMMARY | 2025-06-05 06:25 | XMS_ITS | Continuity of Care Document ---
Author Organization [facility] [address] [place] [address] Phone [phone] Care Team Providers Care Development Coach Name Role Phone Emelia Domingoanna Care Team Information Spirits Model [phone] Problems Active Problems Provider Date Trish thyroiditis [...] Medications SIG Qnty Indications Ordering Provider Date Wugveahww10ggz Tablets Take One Tablet By Mouth Every Day 90tabs Jose Luis Tenorio M.D. 05/25/2022 Metoprolol Succinate ER50mg Tablets ER 24HR Take One Tablet By Mouth Every Day Unknown Amlodipine Besylate2.5mg Tablets Take One Tablet By Mouth Every Day With 5MG CichoBetty oliva Rosuvastatin Nuxnscs5yh Tablets Take One Tablet By Mouth Every [...] T4 2.600 uIU/mL 0.450-4.50 0 TSH 08/26/2023 [facility] TSH 0.66 uIU/mL (0.4-4.2) [...]
[2025-06-05 10:34] LABS: MANUAL DIFF FLAG NO
[2025-06-05 10:40] LABS: Hematocrit 35.0 % (37.0-47.0); Hemoglobin 11.4 g/dl (12.0-16.0); Imm Gran Abs Auto 0.00 X10*3/uL (0.00-0.03); Imm Gran Pct Auto 0.0 % (0.0-0.4); Lymphocytes Absolute Auto 1.6 X10*3/uL (1.2-4.9); Mean Corpuscular HGB Conc 32.6 g/dl (31.0-35.0); Mean Corpuscular Hemoglobin 32.3 pg (27.0-33.0); Mean Corpuscular Volume 99.2 fL (80.0-98.0); NRBC Abs Auto 0.000 X10*3/uL (0.0-0.012); NRBC Pct Auto 0.0 /100WBC (0.0-0.2); Platelet Count 250 X10*3/uL (160-400); Red Blood Count 3.53 X10*6/uL (4.20-5.50); White Blood Count 3.5 X10*3/uL (4.8-10.8)
[2025-06-05 11:21] LABS: Alanine Aminotransferase 14 U/L (0-31); Albumin Level 4.2 g/dL (3.5-5.0); Alkaline Phosphatase 47 U/L (39-117); Anion Gap 12 (12-20); Aspartate Amino Transferase 23 U/L (5-31); Blood Urea Nitrogen 18 mg/dL (9-16); Calcium 9.2 mg/dL (8.4-10.2); Carbon Dioxide 26 mmol/L (22-29); Chloride 109 mmol/L (96-108); Cholesterol 161 mg/dL (<200); Estimated Glomerular Filt Rate > 60; HDL Cholesterol 55 mg/dL (>40); Potassium 4.7 mmol/L (3.3-5.1); Sodium 142 mmol/L (135-145); Total Protein 7.5 g/dL (6.5-8.0); Triglycerides 154 mg/dL (<150)
== END 2025-06-05 06:21 | disposition home or self-care (01) ==
LOC: HO.HMGCLDS 06:20
PROVIDERS: PCP Internal Medicine; Visit Provider Internal Medicine
DX: I10 Essential (primary) hypertension (principal); E78.5 Hyperlipidemia, unspecified; E03.9 Hypothyroidism, unspecified
CPT/HCPCS: 36415; 80053; 80061; 84443; 85025

== ENCOUNTER 2025-06-11 10:54 | Outpatient (AMB) | payer MEDICARE, SELFPAY ==
--- NOTE | 2025-06-11 12:16 | MHC.PC.OV ---
Vital Signs 06/11/25 12:17 Height 5 ft 4 in Weight 142 lb BMI 24.4 BP 122/64 Blood Pressure Location Lt brachial Position Sitting Respiration 16 Pulse 83 Pulse Source Pulse Oximeter Temp 98.0 F Temp Source Oral Pulse Oximetry (%) 98 Oxygen Delivery Method Room Air Intake Visit Reasons: 4 month follow up Internet Salesperson Required: No Accompanied by: Self / Same As Patient Allergies amoxicillin (AMOXICILLIN) Allergy (Mild, Verified 06/11/25 12:18) RASH, hives Medication List - Last Reconciled 06/11/25 by Betty Domingo MD amlodipine 5 mg PO DAILY amlodipine 2.5 mg PO DAILY bimatoprost 0.01% (Lumigan) 1 drp ophthalmic (eye) QPM carboxymethylcellulose sodium 0.5% (Refresh Tears) 1 drp ophthalmic (eye) BID coenzyme Q10 (Co Q-10) 300 mg PO DAILY levothyroxine (Synthroid) 75 mcg PO DAILY metoprolol succinate ER 50 mg PO DAILY [id number] mcg (Centrum Silver Men) 1 tab PO DAILY [quercetin 500 mg PO DAILY] rosuvastatin (Crestor) 5 mg PO DAILY timolol maleate 0.5% 1 drp ophthalmic (eye) DAILY Tobacco use date assessed: 06/11/25 Fall risk assessment: No Falls in past year Last assessed Fall Risk: 06/11/25 Dental Screening Dental Screen Date: 06/11/25 Did you have a dental visit in the last 12 months?: Yes Did you have a dental problem in the last 6 months where you did not have access to dental care?: No Was dental information given to patient?: Patient has dentist HPI 4 month follow up HPI Details Patient presents for the follow-up on hypertension hypothyroidism hyperlipidemia stable on current medications [facility] Medical History MGUS (monoclonal gammopathy of unknown significance) Left shoulder pain Contusion of right chest wall Non-ST elevation VT (NSTEMI) Cough Knee pain, bilateral Vertigo HTN (hypertension) Osteoarthritis Kidney cysts Liver cyst Left nephrolithiasis Lumbar radiculopathy Neutropenia Female bladder prolapse Hyperlipidemia Hypothyroidism Anxiety Annual physical exam Surgical History No pertinent past surgical history Family History Father No problems noted. Mother Hypertension Social History Household Members: None Housing: House Do you presently have visiting nurse or other home services: No Alcohol intake: current Alcohol intake frequency: does not drink Alcohol type: beer Patient Tobacco Use Status: Former Tobacco user Tobacco use type: Cigarette Years Smoked: 20 e-Cigarette/Vaping Use: Never Used service: No Current occupational status: retired Cognitive needs: No Hearing needs: No Vision needs: Yes Questionnaire PHQ-9 Over the last 2 weeks, how often have you been bothered by any of the following problems? 1. Little interest or pleasure in doing things: not at all 2. Feeling down, depressed, or hopeless: not at all 3. Trouble falling or staying asleep, or sleeping too much: nearly every day 4. Feeling tired or having little energy: not at all 5. Poor appetite or overeating: not at all 6. Feeling bad about yourself - or that you are a failure or have let yourself or your family down: not at all 7. Trouble concentrating on things, such as reading the newspaper or watching television: not at all 8. Moving or speaking so slowly that other people could have noticed. Or the opposite - being so fidgety or restless that you have been moving around a lot more than usual: not at all 9. Thoughts that you would be better off or of hurting yourself in some way: not at all Total score: 3 Depression Screening Interpretation: Negative Depression Screening Done: Yes 19396 - PHQ-9 Billing: Yes Source: Developed by Drs. Jeff Salter, Korin Chinchilla, Cam Nathan and colleagues, with an educational nancie from [employer]. Thrive Questionnaire Date Thrive assessed: 10/15/24 I am a: Patient What is your living situation today?: I have a steady place to live Within the past 12 months, did the food you bought not last and you didn't have the money to get more?: Never true Within the past 12 months, did you worry whether your food would run out before you got money to buy more?: Never true Do you have trouble paying for medicines?: No Do you have trouble getting transportation to medical appointments?: No Do you have trouble paying your heating and electricity bill?: No Do you have trouble taking care of your child, family member or friend?: No Do you have trouble with day-to-day activities such as bathing, preparing meals, shopping, managing finances, etc.?: No Are you currently unemployed and looking for a job?: No Are you interested in more education?: No Please select the resources that you would like help with: None Currently or been in a relationship where the following occur: I choose not to answer THRIVE Score: 0 SIOMARA-7 AMB Questionnaire SIOMARA-7 Date SIOMARA - 7 assessed: 06/11/25 Feeling nervous, anxious, or on edge: 0 = Not at all Not being able to stop or control worryin = Not at all Worrying too much about different things: 0 = Not at all Trouble relaxin = Not at all Being so restless that it is hard to sit still: 0 = Not at all Becoming easily annoyed or irritable: 0 = Not at all Feeling afraid as if something awful might happen: 0 = Not at all Total SIOMARA-7 score (0-4 normal; 5-9 mild; 10-14 moderate; 15-21 severe): 0 Source: Developed by Drs. Jeff Salter, Korin Chinchilla, Cam Nathan and colleagues, with an educational nancie from [employer]. SIOMARA-7 Assessment Billing SIOMARA-7 Assessment Tool: SIOMARA-7 Assessment 86087 Review of Systems Const All systems reviewed & are unremarkable except as noted in HPI and below Card Reports no additional complaints Resp Reports no additional complaints GI Reports no additional complaints Reports no additional complaints Physical exam (Primary Care) Vital Signs: Last Vital Signs Temp 98.0 F 06/11/25 12:17 Pulse 83 06/11/25 12:17 Resp 16 06/11/25 12:17 BP 122/64 06/11/25 12:17 Pulse Ox 98 06/11/25 12:17 Oxygen Delivery Method Room Air 06/11/25 12:17 BMI result Body Mass Index 24.4 Tobacco/Smoking Status: Tobacco use Status Tobacco use date assessed 06/11/25 06/11/25 12:22 Patient Tobacco Use Status Former Tobacco user 06/11/25 12:22 Tobacco use type Cigarette 06/11/25 12:22 e-Cigarette/Vaping Use Never Used 06/11/25 12:22 PHQ-9: PHQ-9 Score PHQ-9: Total score 3 06/11/25 12:22 Depression Screening Interpretation: Negative Thrive Assessment: Date of Thrive Assessment Date Thrive assessed 10/15/24 06/11/25 12:22 Currently or been in a relationship where the following occur: I choose not to answer Const General: no acute distress HENMT Head: Yes normal to inspection Neck Neck: Yes supple Resp Effort & Inspection: normal respiratory effort Auscultation: clear to auscultation bilaterally Cardio Rhythm: regular rhythm Heart sounds: S1 normal heart sound present and S2 normal heart sound present GI Inspection: Yes normal to inspection Palpation (GI): Soft to palpation Percussion: Yes normal to percussion Auscultation: normal bowel sounds Coding Level of Care Code Est Pt Level 4 (08527) Diagnoses HTN (hypertension) I10 Hypothyroidism E03.9 Hyperlipidemia E78.5 MGUS (monoclonal gammopathy of unknown significance) D47.2 Additional Codes SIOMARA-7 Assessment Billing - SIOMARA-7 Assessment Tool: SIOMARA-7 Assessment 93910 ([id number]) PHQ-9 - 09665 - PHQ-9 Billing: Yes ([id number]) Assessment & Plan Assessment & Plan (1) HTN (hypertension): Comment: BP goal less than 130/80 Code(s): I10 - Essential (primary) hypertension Category: Medical Plan: Continue current medications (2) Hypothyroidism: Code(s): E03.9 - Hypothyroidism, unspecified Category: Medical Plan: Continue levothyroxine (3) Hyperlipidemia: Code(s): E78.5 - Hyperlipidemia, unspecified Category: Medical Plan: Continue statin (4) MGUS (monoclonal gammopathy of unknown significance): Comment: IgM 1224(<300), IGM KAPPA MONOCLONAL BAND PRESENT 0.6 g , f/u with [facility] hematology q 3 mths Code(s): D47.2 - Monoclonal gammopathy Category: Medical Plan: Follow-up with Hematology
[2025-06-11 12:17] VITALS: BP 122/64; PULSE 83; RESP 16; TEMP 36.7; O2SAT 98; BMI 24.4
--- OUTSIDE RECORDS SUMMARY | 2025-06-11 12:18 | XMS_ITS | Patient Health Record ---
Author Organization [employer] Address [address] [place] [address] Care Team Providers Care Film Crew Member Name Role Phone Ratna Sheppard Unavailable [phone] Allergies Allergen (clinical drug ingredient) Drug/Non Drug Allergy documented on EMR Reaction Allergy Type Onset Date Status amoxicillin AMOXICILLIN RASH Drug Allergy Act flores aspirin ASPIRIN PAIN Drug Allergy Active Reason For Referral No Information Medications Medication SIG (Take, Route, Frequency, Duration) Notes Start Date End Date Status amLODIPine Besylate 5MG ORAL; Duration: -3 [facility]- 014 Active Ativan 1MG ORAL; Duration: -3 [facility]- 04/19/2014 Active Coenzyme Q10 60MG ORAL; Duration: -3 [facility]- 04/19/2014 Active Lumigan 0.01% Ophthalmic; Duration: -3 [facility]- 04/19/2014 Active Synthroid 75 MCG 1 ORAL daily; Duration: -3 [facility]- 2011 Active Timoptic 0.5% Ophthalmic; Duration: -3 [facility]- 04/19/2014 Active Valerian ORAL; Duration: -3 [facility]- 12/07/2011 Active Vitamin D2 50,000 IU 1 ORAL weekly; Duration: -3 [facility]- 0 12/07/2011 Active Problems Problem Type SNOMED Code ICD Code Onset Dates Problem Status W/U Status Risk Notes Problem Midline cystocele (021331082) Cystocele, 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) Active confirmed Problem Hypothyroidism (36641741) Unspecified hypothyroidism (244.9) Active confirmed Major Problem Menopausal symptom (93306803) Symptomatic menopausal or female climacteric states (627.2) Active confirmed Major Problem Postmenopausal atrophic vaginitis (69944240) Postmenopausal atrophic vaginitis (627.3) Active confirmed Diag Problem Osteoarthritis (104236873) Osteoarthrosis, unspecified whether generalized or localized, unspecified site (715.90) Active confirmed Major Plan Of Treatment Pending Test Test Name Order Date COMPLETE URINALYSIS 10/28/2015 MM Digital Mammo Screening 11/18/2015 Insurance Providers Payer Name Payer Address Payer Phone Subscriber Number Group Number Insured Name Patient Relationship to Insured Coverage Start Date Coverage End Date MEDICARE [address] [place], [place] [id number] SANAM ANGEL Self - patient is the insured BCBS OF [facility] [address] [place] [address] [id number] SANAM ANGEL Self - patient is the [...]
--- OUTSIDE RECORDS SUMMARY | 2025-06-11 12:18 | XMS_ITS | Continuity of Care Document ---
Author Organization [facility] [address] [place] [address] Phone [phone] Care Team Providers Care Crankshaft Grinder Name Role Phone Emelia Domingoanna Care Team Information Disability Counselor [phone] Problems Active Problems Provider Date Trish thyroiditis [...] Medications SIG Qnty Indications Ordering Provider Date [id number] Tablets Take One Tablet By Mouth Every Day 90tabs Jose Luis Tenorio M.D. 05/25/2022 Metoprolol Succinate ER50mg Tablets ER 24HR Take One Tablet By Mouth Every Day Unknown Amlodipine Besylate2.5mg Tablets Take One Tablet By Mouth Every Day With 5MG CichoBetty oliva Rosuvastatin [id number] Tablets Take One Tablet By Mouth Every [...] T4 2.600 uIU/mL 0.450-4.50 0 TSH 08/26/2023 [facility] TSH 0.66 uIU/mL [...]
--- OUTSIDE RECORDS SUMMARY | 2025-06-11 12:18 | XMS_ITS | Clinical Summary ---
Author Organization [facility] Address [address] [place] [address] Phone Care Team Providers Care Cam Maker Name Role Phone Betty Domingo MD Primary Care Provider [phone] Medications amLODIPine (NORVASC) 5 MG tablet Take [...] Type Department Care Team Description 05/02/2025 Documentation [facility] [address] [place] [address] Nicole Carver [facility] 04/30/2025 11:40 AM EDT Telemedicine - audio only [address] [facility] [address] [place] [address] Campos Barillas MD, PhD Waldenstrom macroglobulinemia (Primary [...] 07/02/2025 1:30 PM EDT Procedure visit [address] [place] [address] Campos Barillas MD, PhD [address] [place] [address] [id number] [place] [address] (work) [email or web address] Health Maintenance Due Date Last Done [...] IMMUNOGLOBULIN M 1,367(H) 53 - 334 mg/dL [facility] IgM (Turrell) 721(H) 19 - 163 mg/dL [facility] Comment:Result checked IgM (Lambda) Cancelled 12 - 101 mg/dL [facility] Comment:REAGENT UNAVAILABLE IgM (Turrell/Lambda ratio) Hevy-Lite K/L ratio cannot be calculated. 1.18 - 2.74 [facility] 04/23/2025 7:21 AM EDT 04/23/2025 7:26 AM EDT Campos Barillas MD, PhD LAB BLOOD ORDERABLES F inal Result [facility] [address] [place] [address] * (ABNORMAL) LDH (04/23/2025 7:21 AM EDT) Pathologist [facility] LDH 246(H) 110 - 210 U/L [facility] Comment:Hemolysis present, r esult falsely increased. 04/23/2025 7:21 AM EDT 04/23/2025 7:26 AM EDT Campos Barillas MD, PhD LAB BLOOD ORDERABLES F inal Result [facility] [address] [place] [address] * Comprehensive metabolic panel (04/23/2025 7:21 AM EDT) SODIUM 141 135 - 145 mmol/L [facility] POTASSIUM 4.7 3.4 - 5.0 mmol/L [facility] Comment:Hemolysis present, r esult falsely increased. CHLORIDE 104 98 - 108 mmol/L [facility] CO2 26 23 - 32 mmol/L [facility] BUN 19 8 - 25 mg/dL [facility] CREATININE 0.85 0.50 - 1.00 mg/dL [facility] GLUCOSE 97 70 - 110 mg/dL [facility] ALBUMIN 4.2 3.3 - 5.0 g/dL [facility] TOTAL PROTEIN 7.7 6.0 - 8.3 g/dL [facility] CALCIUM 9.3 8.5 - 10.5 mg/dL [facility] ALKALINE PHOSPHATASE 54 30 - 100 U/L [facility] TOTAL BILIRUBIN 0.4 0.0 - 1.0 mg/dL [facility] AST 30 9 - 32 U/L [facility] Comment:Hemolysis present, r esult falsely increased. ALT 12 7 - 33 U/L [facility] GLOBULIN 3.5 1.9 - 4.1 g/dL [facility] EGFR 66 >59 mL/min/1.7 3m2 [facility] Comment:Estimated glomerular filtration rate calculated using the CKD-EPI refit equation. ANION GAP 11 3 - 17 mmol/L [facility] 04/23/2025 7:21 AM EDT 04/23/2025 7:26 AM EDT Campos Barillas MD, PhD LAB BLOOD ORDERABLES F inal Result [facility] [address] [place] [address] * (ABNORMAL) SPEP panel (04/23/2025 7:21 AM EDT) Pathologist [facility] Total Protein 7.4 6.0 - 8.3 g/dL [facility] IMMUNOGLOBULIN G 915 614 - 1,295 mg/dL [facility] IgA 124 69 - 309 mg/dL [facility] IMMUNOGLOBULIN M 1,270(H) 53 - 334 mg/dL [facility] SPEP Abnormal pattern. There is a 0.64 g/dl band in the gamma region, previously identified as an IgM kappa M component. Serum protein electrophoresis results should be evaluated in the context of separately reported serum free light chain levels and ratio when these additional results are available. [facility] Comment:Dave wing M.D., Director Clinical Immunology Laboratory [id number] 04/23/2025 7:21 AM EDT 04/23/2025 7:27 AM EDT Campos Barillas MD, PhD LAB BLOOD ORDERABLES F inal Result Performing Organization Address [facility] Co de Phone Number [address] [address] * (ABNORMAL) Free light chains, serum (04/23/2025 7:21 AM EDT) FREE KAPPA LT CHAIN 22.1(H) 3.3 - 19.4 mg/L [facility] FREE LAMBDA LT CHAIN 27.3(H) 5.7 - 26.3 mg/L [facility] FREE KAPPA LAMBDA RAT 0.81 0.30 - 1.70 [facility] 04/23/2025 7:21 AM EDT 04/23/2025 7:27 AM EDT Campos Barillas MD, PhD LAB BLOOD ORDERABLES F inal Result Performing Organization Address [facility] Co de Phone Number [address] [address] * (ABNORMAL) CBC and differential (04/23/2025 7:21 AM EDT) WBC 2.87(L) 4.00 - 11.00 K/uL [facility] RBC 3.47(L) 4.00 - 5.20 M/uL [facility] HGB 11.3(L) 12.0 - 16.0 g/dL [facility] HCT 34.6(L) 36.0 - 46.0 % [facility] PLT 231 150 - 450 K/uL [facility] MCV 99.7 80.0 - 100.0 fL [facility] MCH 32.6(H) 27.0 - 31.0 pg [facility] MCHC 32.7 32.0 - 36.0 g/dL [facility] RDW 11.9 11.5 - 14.5 % [facility] MPV 10.0 8.4 - 12.0 fL [facility] NRBC 0.00 0.00 /100 WBCs [facility] ABSOLUTE NRBC 0.00 0.00 K/uL [facility] DIFF METHOD Auto [facility] GEN ERAL [facility] NEUTS 35.6(L) 48.0 - 76.0 % [facility] LYMPHS 45.3(H) 18.0 - 41.0 % [facility] MONOS 10.8 4.0 - 11.0 % [facility] EOS 6.3(H) 0.0 - 5.0 % [facility] BASOS 1.7(H) 0.0 - 1.5 % [facility] % IMMATURE GRANS 0.3 0.0 - 0.9 % [facility] ABSOLUTE NEUTS 1.02(L) 1.92 - 7.60 K/uL [facility] ABSOLUTE LYMPHS 1.30 0.72 - 4.10 K/uL [facility] ABSOLUTE MONOS 0.31 0.16 - 1.10 K/uL [facility] ABSOLUTE EOS 0.18 0.00 - 0.50 K/uL [facility] ABSOLUTE BASOS 0.05 0.00 - 0.15 K/uL [facility] ABS IMMATURE GRANS 0.01 0.00 - 0.09 K/uL [facility] Blood 04/23/2025 7:21 AM EDT 04/23/2025 7:26 AM EDT us Campos Barillas MD, PhD LAB BLOOD ORDERABLES F inal Result [facility] [address] [place] [address] * Phosphorus (04/23/2025 7:21 AM EDT) PHOSPHORUS 3.5 2.6 - 4.5 mg/dL [facility] 04/23/2025 7:21 AM EDT 04/23/2025 7:26 AM EDT Campos Barillas MD, PhD LAB BLOOD ORDERABLES F inal Result [facility] [address] [place] [address] * Magnesium (04/23/2025 7:21 AM EDT) MAGNESIUM 2.1 1.7 - 2.4 mg/dL [facility] 04/23/2025 7:21 AM EDT 04/23/2025 7:26 AM EDT Result [facility] Campos Barillas MD, PhD LAB BLOOD ORDERABLES F inal Result Performing Organization Address City/[facility]/ZIP Co de Phone Number [facility] [address] [place] [phone] * Beta-2 microglobulin, blood (04/23/2025 7:21 AM EDT) BETA 2 MICROGLOBUL 2.02 0.80 - 2.34 mcg/mL [facility] 04/23/2025 7:21 AM EDT 04/23/2025 7:27 AM EDT Result [facility] Campos Barillas MD, PhD LAB BLOOD ORDERABLES F inal Result [address] [address] from Last 3 Months Insurance [employer] PPO MEDICARE REPLACEMENT [employer] PPO MEDICARE REPLACEMENT [employer] PPO MEDICARE REPLACEMENT [employer] PPO MEDICARE REPLACEMENT [employer] PPO MEDICARE REPLACEMENT [employer] PPO MEDICARE REPLACEMENT Care Teams Cam Maker Relationship Specialty Start Date End Date Betty Domingo MD [address] [place] [address] PCP - General Internal Medicine 12/28/24 Additional Source Comments The information contained in this document represents components of the legal health record. It is not the complete legal health record.[facility]
--- OUTSIDE RECORDS SUMMARY | 2025-06-11 12:18 | XMS_ITS | Clinical Summary ---
Author Organization [facility] ity Address [address] [place] [address] Care Team Providers Care Hat Maker Name Role Phone Unavailable Primary Care Provider [...]
--- OUTSIDE RECORDS SUMMARY | 2025-06-11 12:18 | XMS_ITS | Encounter Summary ---
Author Organization [facility] Address [address] [place] [address] Phone Care Team Providers Care Lead Project Manager Name Role Phone Betty Domingo MD Primary Care Provider [phone] Encounter Details Date Type Department Care Team (Late st Contact Info) Description 05/02/2025 Documentation [email or web address] [address] [place] [address] [address] [phone] [email or web address] Social History Tobacco Use Types Packs/Day Years [...] Description 07/02/2025 1:30 PM EDT Procedure visit [address] [place] [address] Campos Barillas MD, PhD [address] [place] [address] [id number] [place] [address] [email or web address] documented as of this encounter Visit Diagnoses Not on filedocumented in this encounter Care Teams Lead Project Manager Relationship Specialty Start Date End Date Betty Domingo MD [address] [place] [address] PCP - General Internal Medicine 12/28/24 documented as of this encounter Additional Source Comments The information contained in this document represents components of the legal health record. It is not the complete legal health record.[facility]
== END 2025-06-11 12:40 | disposition home or self-care (01) ==
LOC: HO.HMCC 10:55
PROVIDERS: PCP Internal Medicine; Visit Provider Internal Medicine
DX: I10 Essential (primary) hypertension (principal); E03.9 Hypothyroidism, unspecified; E78.5 Hyperlipidemia, unspecified; D47.2 Monoclonal gammopathy

== ENCOUNTER → 2025-06-11 10:54 | Outpatient (BNVA) | payer MEDICARE, SELFPAY | PROVIDERS: PCP Internal Medicine; Visit Provider Internal Medicine | DX: I10 Essential (primary) hypertension (principal); E03.9 Hypothyroidism, unspecified; E78.5 Hyperlipidemia, unspecified; D47.2 Monoclonal gammopathy; Z79.899 Other long term (current) drug therapy | CPT/HCPCS: 96127; 99212 ==

== ENCOUNTER 2025-06-26 11:21 | Outpatient (AMB) | payer MEDICARE, SELFPAY ==
[2025-06-26 12:05] VITALS: BP 106/50; PULSE 70; TEMP 36.6; O2SAT 100; BMI 24.0
--- NOTE | 2025-06-26 12:05 | MHC.OFFWIV ---
Intake Vital Signs 06/26/25 12:05 Height 5 ft 4 in Weight 140 lb BMI 24.0 BP 106/50 L Blood Pressure Location Lt brachial Position Sitting Pulse 70 Pulse Source Pulse Oximeter Temp 97.8 F Temp Source Oral Pulse Oximetry (%) 100 Oxygen Delivery Method Room Air Intake Visit Reasons: EP-neck pain, lt hand/arm numbness Intake Note: pt presents with left neck pain and left arm/hand numbness Patient Tobacco Use Status: Former Tobacco user Allergies amoxicillin (AMOXICILLIN) Allergy (Mild, Verified 06/26/25 12:08) RASH, hives Do you need a note to return to daycare/school/sports/work: No HPI HPI Comments History of Present Illness Details History of Present Illness - The patient is an 89-year-old female presenting with mulitple complaints. First, she has dizziness upon changing positions and low blood pressure. - The dizziness is a new symptom, occurring when she changes positions quickly, such as getting up from a seated position or bending over. - She has a history of hypertension and has been on amlodipine for years, currently taking a total of 7.5 mg daily. - Her blood pressure was noted to be low during the visit, with a diastolic reading of 50 mmHg. - She denies experiencing headaches, chest pain, or shortness of breath. - She has reduced appetite, some weight loss and eats only one meal a day recently. She says it is due to dry mouth which affects her inability to chew and swallow. - She reports pain between the bones in her back and down her arm, attributed to arthritis in her shoulder. - She has a history of thyroid disorder, with her TSH levels checked a month ago showing normal results. Physical Exam General: Cooperative, healthy appearing, comfortable, no acute distress and well developed Orientation: Patient oriented x3 Limitations: No limitations Head: Normal to inspection Ears: Hearing grossly normal bilaterally Nose: Normal External nose present Face and sinus: Normal facial exam Eyes: Appearance normal, both eyes and all related structures Neck: Normal visual inspection and Yes full ROM Respiratory: Normal respiratory effort and able to speak in complete sentences. Skin: No rashes or lesions noted Neuro: Patient oriented x3, gait normal Extremities: Normal to inspection, moving extremities normally Review of Systems - Neurological: Reports dizziness upon changing positions. Denies headaches. - Cardiovascular: Denies chest pain or shortness of breath. - Musculoskeletal: Reports pain between the bones in her back and down her arm, attributed to arthritis. - Endocrine: Reports history of thyroid disorder, with recent normal TSH levels. - Gastrointestinal: Reports xerostomia affecting eating and swallowing. All systems reviewed and are unremarkable except as noted in HPI [facility] Medical History MGUS (monoclonal gammopathy of unknown significance) Left shoulder pain Contusion of right chest wall Non-ST elevation [place] (NSTEMI) Cough Knee pain, bilateral Vertigo HTN (hypertension) Osteoarthritis Kidney cysts Liver cyst Left nephrolithiasis Lumbar radiculopathy Neutropenia Female bladder prolapse Hyperlipidemia Hypothyroidism Anxiety Annual physical exam Surgical History No pertinent past surgical history Family History Father No problems noted. Mother Hypertension Social History Household Members: None Housing: House Do you presently have visiting nurse or other home services: No Alcohol intake: current Alcohol intake frequency: does not drink Alcohol type: beer Patient Tobacco Use Status: Former Tobacco user Tobacco use type: Cigarette Years Smoked: 20 e-Cigarette/Vaping Use: Never Used service: No Current occupational status: retired Cognitive needs: No Hearing needs: No Vision needs: Yes Physical Exam Vital Signs: Last Vital Signs Temp 97.8 F 06/26/25 12:05 Pulse 70 06/26/25 12:05 BP 106/50 L 06/26/25 12:05 Pulse Ox 100 06/26/25 12:05 Oxygen Delivery Method Room Air 06/26/25 12:05 BMI result Body Mass Index 24.0 Assessment & Plan Assessment & Plan (1) Low blood pressure: Code(s): I95.9 - Hypotension, unspecified Qualifiers: Hypotension type: orthostatic hypotension Qualified Code(s): I95.1 - Orthostatic hypotension Plan: Plan Patient was informed and verbally consented to the use of an ambient scribe for clinic note documentation during this visit. Dizziness upon changing positions is likely secondary to low diastolic blood pressure likely secondary to reduced food intake and weight loss due to xerostomia. Unclear etiology of Xerostomia, normal TSH one month ago. - Reduce amlodipine dose from 7.5mg daily to 5 mg daily to address low blood pressure and associated dizziness. - Monitor blood pressure at home twice daily and keep a log of readings and how she is feeling. - Follow-up appointment scheduled in 6 days wiht PCP to reassess symptoms and blood pressure control. - Encourage adequate hydration and dietary intake to support blood pressure maintenance. - Follow up with PCP regarding xerostomia causes. Coding Level of Care Code Est Pt Level 3 (22164) Diagnoses Orthostatic hypotension I95.1 Hypotension type: orthostatic hypotension
== END 2025-06-26 12:34 | disposition home or self-care (01) ==
PROVIDERS: PCP Internal Medicine; Visit Provider Physician Assistant
DX: I95.1 Orthostatic hypotension (principal)

== ENCOUNTER → 2025-06-26 11:21 | Outpatient (BNVA) | payer MEDICARE, SELFPAY | PROVIDERS: PCP Internal Medicine; Visit Provider Physician Assistant | DX: I95.1 Orthostatic hypotension (principal); M19.019 Primary osteoarthritis, unspecified shoulder | CPT/HCPCS: 99212 ==

== ENCOUNTER → 2025-06-27 16:32 | Outpatient (BNVA) | payer MEDICARE, SELFPAY | PROVIDERS: PCP Internal Medicine | DX: R03.0 Elevated blood-pressure reading, without diagnosis of hypertension (principal) | CPT/HCPCS: 99211 ==

== ENCOUNTER 2025-07-02 09:13 | Outpatient (AMB) | payer MEDICARE, SELFPAY ==
[2025-07-02 09:16] VITALS: BP 122/68; PULSE 74; RESP 17; TEMP 36.7; O2SAT 99; BMI 24.4
--- NOTE | 2025-07-02 09:16 | A.OFFPC_ITS ---
Vital Signs 07/02/25 09:16 07/02/25 09:51 Height 5 ft 4 in Weight 142 lb BMI 24.4 BP 122/68 100/60 Blood Pressure Location Lt brachial Rt brachial Position Sitting Standing Respiration 17 Pulse 74 Pulse Source Pulse Oximeter Temp 98.1 F Temp Source Oral Pulse Oximetry (%) 99 Oxygen Delivery Method Room Air Intake Visit Reasons: Follow up after walk in BP Intake Note: Pt is here today for a follow up visit after being seen in a walk in. Geodetic Engineer Required: No Accompanied by: Self / Same As Patient Allergies amoxicillin (AMOXICILLIN) Allergy (Mild, Verified 07/02/25 09:20) RASH, hives Medication List - Last Reconciled 07/02/25 by Betty Domingo MD amlodipine 2.5 mg PO DAILY bimatoprost 0.01% (Lumigan) 1 drp ophthalmic (eye) QPM carboxymethylcellulose sodium 0.5% (Refresh Tears) 1 drp ophthalmic (eye) BID coenzyme Q10 (Co Q-10) 300 mg PO DAILY levothyroxine (Synthroid) 75 mcg PO DAILY metoprolol succinate ER 50 mg PO DAILY [id number] mcg (Centrum Silver Men) 1 tab PO DAILY [quercetin 500 mg PO DAILY] rosuvastatin (Crestor) 5 mg PO DAILY timolol maleate 0.5% 1 drp ophthalmic (eye) DAILY Tobacco use date assessed: 06/11/25 Fall risk assessment: No Falls in past year Last assessed Fall Risk: 06/11/25 Dental Screening Dental Screen Date: 06/11/25 Did you have a dental visit in the last 12 months?: Yes Did you have a dental problem in the last 6 months where you did not have access to dental care?: No Was dental information given to patient?: Patient has dentist HPI Follow up after walk in BP HPI Details PATIENT PRESENTS FOR THE FOLLOW-UP OF WALK IN VISIT. PATIENT DEVELOPED LIGHTHEADEDNESS WITH A POSITION CHANGE WHILE WORKING IN [place] GARD[place]. Her BLOOD PRESSURE WAS LOW AND AMLODIPINE DOSE WAS DECREASED FROM 7.5 MG TO 5 MG A DAY. Patient reports feeling better, no more positional lightheadedness but reports not eating well-balanced diet due to poor appetite. Patient has been eating a lot of sweets but no cook foods because of her teeth sensitivity. Patient follows up with dentist. Patient denies weight lost abdominal pain depressoin. [facility] Medical History (Updated 07/02/25 @ 09:53 by Betty Domingo MD) MGUS (monoclonal gammopathy of unknown significance) Left shoulder pain Contusion of right chest wall Non-ST elevation [place] (NSTEMI) Cough Knee pain, bilateral Vertigo HTN (hypertension) Osteoarthritis Kidney cysts Liver cyst Left nephrolithiasis Lumbar radiculopathy Neutropenia Female bladder prolapse Hyperlipidemia Hypothyroidism Anxiety Annual physical exam Surgical History No pertinent past surgical history Family History Father No problems noted. Mother Hypertension Social History Household Members: None Housing: House Do you presently have visiting nurse or other home services: No Alcohol intake: current Alcohol intake frequency: does not drink Alcohol type: beer Patient Tobacco Use Status: Former Tobacco user Tobacco use type: Cigarette Years Smoked: 20 e-Cigarette/Vaping Use: Never Used service: No Current occupational status: retired Cognitive needs: No Hearing needs: No Vision needs: Yes Questionnaire Thrive Questionnaire Date Thrive assessed: 10/15/24 I am a: Patient What is your living situation today?: I have a steady place to live Within the past 12 months, did the food you bought not last and you didn't have the money to get more?: Never true Within the past 12 months, did you worry whether your food would run out before you got money to buy more?: Never true Do you have trouble paying for medicines?: No Do you have trouble getting transportation to medical appointments?: No Do you have trouble paying your heating and electricity bill?: No Do you have trouble taking care of your child, family member or friend?: No Do you have trouble with day-to-day activities such as bathing, preparing meals, shopping, managing finances, etc.?: No Are you currently unemployed and looking for a job?: No Are you interested in more education?: No Please select the resources that you would like help with: None Currently or been in a relationship where the following occur: I choose not to answer THRIVE Score: 0 SIOMARA-7 AMB Questionnaire SIOMARA-7 Date SIOMARA - 7 assessed: 06/11/25 Source: Developed by Drs. Jeff Salter, Korin Chinchilla, Cam Nathan and colleagues, with an educational nancie from [employer]. Review of Systems Const All systems reviewed & are unremarkable except as noted in HPI and below ENT Reports no additional complaints Card Reports no additional complaints Resp Reports no additional complaints GI Reports no additional complaints Reports no additional complaints Physical exam (Primary Care) Vital Signs: Last Vital Signs Temp 98.1 F 07/02/25 09:16 Pulse 74 07/02/25 09:16 Resp 17 07/02/25 09:16 BP 122/68 07/02/25 09:16 Pulse Ox 99 07/02/25 09:16 Oxygen Delivery Method Room Air 07/02/25 09:16 BMI result Body Mass Index 24.4 Tobacco/Smoking Status: Tobacco use Status Tobacco use date assessed 06/11/25 07/02/25 09:16 Patient Tobacco Use Status Former Tobacco user 07/02/25 09:16 Tobacco use type Cigarette 07/02/25 09:16 e-Cigarette/Vaping Use Never Used 07/02/25 09:16 Thrive Assessment: Date of Thrive Assessment Date Thrive assessed 10/15/24 07/02/25 09:16 Currently or been in a relationship where the following occur: I choose not to answer Const General: no acute distress HENMT Head: Yes normal to inspection Face and sinus: Yes normal facial exam Neck Neck: Yes supple Resp Effort & Inspection: normal respiratory effort Auscultation: clear to auscultation bilaterally Cardio Rhythm: regular rhythm Heart sounds: S1 normal heart sound present and S2 normal heart sound present Coding Level of Care Code Est Pt Level 4 (61301) Diagnoses HTN (hypertension) I10 Assessment & Plan Assessment & Plan (1) HTN (hypertension): Comment: BP goal less than 130/80 Code(s): I10 - Essential (primary) hypertension Category: Medical Plan: Patient still has orthostatic hypotension. Amlodipine dose will be decreased to 2.5 mg daily patient will continue metoprolol and will follow-up in 1 month. Well-balanced diet increasing protein intake discussed with the patient Medications: New amlodipine 2.5 mg PO DAILY 90 tabs 0RF Discontinued amlodipine 1 tab daily with 2.5 mg of amlodipine Discontinued Reason: Doctor's Order 5 mg PO DAILY 90 tabs 3RF
[2025-07-02 09:51] VITALS: BP 100/60
--- OUTSIDE RECORDS SUMMARY | 2025-07-02 10:06 | XMS_ITS | Encounter Summary ---
Author Organization [facility] Address [address] [place] [address] [place] [phone] Phone Care Team Providers Care Electronic Components Assembler Name Role Phone Betty Domingo MD Primary Care Provider [phone] Encounter Details Date Type Department Care Team (Late st Contact Info) Description 05/02/2025 Documentation [facility] [place] [facility] [address] [place] [address] [phone] [email or web address] Social History Tobacco Use Types Packs/Day Years [...] Description 07/02/2025 1:30 PM EDT Procedure visit [address] [place] [address] Campos Barillas MD, PhD [address] [place] [address] [id number] [place] [address] [email or web address] documented as of this encounter Visit Diagnoses Not on filedocumented in this encounter Care Teams Electronic Components Assembler Relationship Specialty Start Date End Date Betty Domingo MD [address] [place] [address] PCP - General Internal Medicine 12/28/24 documented as of this encounter Additional Source Comments The information contained in this document represents components of the legal health record. It is not the complete legal health record.[facility]
--- OUTSIDE RECORDS SUMMARY | 2025-07-02 10:07 | XMS_ITS | Continuity of Care Document ---
Author Organization [facility] [address] [place] [address] Phone [phone] Care Team Providers Care Pharmaceutical Botanist Name Role Phone Emelia Domingoanna Care Team Information Law Examiner [phone] Problems Active Problems Provider Date Trish thyroiditis [...] Medications SIG Qnty Indications Ordering Provider Date [id number] Tablets Take One Tablet By Mouth Every Day 90tabs Jose Luis Tenorio M.D. 05/25/2022 Metoprolol Succinate ER50mg Tablets ER 24HR Take One Tablet By Mouth Every Day Unknown Amlodipine Besylate2.5mg Tablets Take One Tablet By Mouth Every Day With 5MG CichoBetty oliva Rosuvastatin Ijjvybz7um Tablets Take One Tablet By Mouth Every [...] T4 2.600 uIU/mL 0.450-4.50 0 TSH 08/26/2023 [facility] TSH 0.66 uIU/mL (0.4-4.2) [...]
--- OUTSIDE RECORDS SUMMARY | 2025-07-02 10:08 | XMS_ITS | Patient Health Record ---
Author Organization [facility] Address [address] [place] [address] Care Team Providers Care Fountain Helper Name Role Phone Ratna Sheppard Unavailable [phone] Allergies Allergen (clinical drug ingredient) Drug/Non Drug Allergy documented on EMR Reaction Allergy Type Onset Date Status amoxicillin AMOXICILLIN RASH Drug Allergy Act flores aspirin ASPIRIN PAIN Drug Allergy Active Reason For Referral No Information Medications Medication SIG (Take, Route, Frequency, Duration) Notes Start Date End Date Status amLODIPine Besylate 5MG ORAL; Duration: -3 [facility] Active Ativan 1MG ORAL; Duration: -3 [facility] 04/19/2014 Active Coenzyme Q10 60MG ORAL; Duration: -3 [facility] 04/19/2014 Active Lumigan 0.01% Ophthalmic; Duration: -3 [facility] 04/19/2014 Active Synthroid 75 MCG 1 ORAL daily; Duration: -3 [facility] 2011 Active Timoptic 0.5% Ophthalmic; Duration: -3 [facility] 04/19/2014 Active Valerian ORAL; Duration: -3 [facility] 12/07/2011 Active Vitamin D2 50,000 IU 1 ORAL weekly; Duration: -3 [facility]- 0 12/07/2011 Active Problems Problem Type SNOMED Code ICD Code Onset Dates Problem Status W/U Status Risk Notes Problem Midline cystocele (354557443) Cystocele, 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) Active confirmed Problem Hypothyroidism (40004392) Unspecified hypothyroidism (244.9) Active confirmed Major Problem Menopausal symptom (04969870) Symptomatic menopausal or female climacteric states (627.2) Active confirmed Major Problem Postmenopausal atrophic vaginitis (03935924) Postmenopausal atrophic vaginitis (627.3) Active confirmed Diag Problem Osteoarthritis (406365722) Osteoarthrosis, unspecified whether generalized or localized, unspecified site (715.90) Active confirmed Major Plan Of Treatment Pending Test Test Name Order Date COMPLETE URINALYSIS 10/28/2015 MM Digital Mammo Screening 11/18/2015 Insurance Providers Payer Name Payer Address Payer Phone Subscriber Number Group Number Insured Name Patient Relationship to Insured Coverage Start Date Coverage End Date MEDICARE [address] [place], [place] [id number] SANAM ANGEL Self - patient is the insured [employer] [facility] [address] [place] [address] [id number] SANAM ANGEL Self - patient is the [...]
== END 2025-07-02 09:42 | disposition home or self-care (01) ==
LOC: HO.HMCC 09:14
PROVIDERS: PCP Internal Medicine; Visit Provider Internal Medicine
DX: I10 Essential (primary) hypertension (principal)

== ENCOUNTER → 2025-07-02 09:13 | Outpatient (BNVA) | payer MEDICARE, SELFPAY | PROVIDERS: PCP Internal Medicine; Visit Provider Internal Medicine | DX: R42 Dizziness and giddiness (principal); I10 Essential (primary) hypertension | CPT/HCPCS: 99212 ==

== ENCOUNTER 2025-07-30 13:36 | Outpatient (AMB) | payer MEDICARE, SELFPAY ==
--- NOTE | 2025-07-30 13:40 | MHC.OFFWIV ---
Intake Vital Signs 07/30/25 13:41 Height 5 ft 4 in Weight 142 lb BMI 24.4 BP 130/72 Blood Pressure Location Lt brachial Position Sitting Respiration 16 Pulse 85 Pulse Source Pulse Oximeter Pulse Oximetry (%) 98 Oxygen Delivery Method Room Air Intake Visit Reasons: 1 month f/up Intake Note: Pt is here today for 1 month follow up visit on BP. Patient Tobacco Use Status: Former Tobacco user Allergies amoxicillin (AMOXICILLIN) Allergy (Mild, Verified 07/30/25 13:42) RASH, hives PFSH Medical History (Updated 07/02/25 @ 09:53 by Betty Domingo MD) MGUS (monoclonal gammopathy of unknown significance) Left shoulder pain Contusion of right chest wall Non-ST elevation [place] (NSTEMI) Cough Knee pain, bilateral Vertigo HTN (hypertension) Osteoarthritis Kidney cysts Liver cyst Left nephrolithiasis Lumbar radiculopathy Neutropenia Female bladder prolapse Hyperlipidemia Hypothyroidism Anxiety Annual physical exam Surgical History No pertinent past surgical history Family History Father No problems noted. Mother Hypertension Social History Household Members: None Housing: House Do you presently have visiting nurse or other home services: No Alcohol intake: current Alcohol intake frequency: does not drink Alcohol type: beer Patient Tobacco Use Status: Former Tobacco user Tobacco use type: Cigarette Years Smoked: 20 e-Cigarette/Vaping Use: Never Used service: No Current occupational status: retired Cognitive needs: No Hearing needs: No Vision needs: Yes Coding
[2025-07-30 13:41] VITALS: BP 130/72; PULSE 85; RESP 16; O2SAT 98; BMI 24.4
--- NOTE | 2025-07-30 13:47 | A.OFFPC_ITS ---
Vital Signs 07/30/25 13:41 Height 5 ft 4 in Weight 142 lb BMI 24.4 BP 130/72 Blood Pressure Location Lt brachial Position Sitting Respiration 16 Pulse 85 Pulse Source Pulse Oximeter Pulse Oximetry (%) 98 Oxygen Delivery Method Room Air Intake Visit Reasons: 1 month f/up Intake Note: Pt is here today for 1 month follow up visit on BP. Allergies amoxicillin (AMOXICILLIN) Allergy (Mild, Verified 07/30/25 13:42) RASH, hives Tobacco use date assessed: 07/30/25 Dental Screening Dental Screen Date: 06/11/25 HPI 1 month f/up HPI Details Pt presents for f/u HTN, hyperlipid, hypothyroid, stable on meds. [facility] Medical History MGUS (monoclonal gammopathy of unknown significance) Left shoulder pain Contusion of right chest wall Non-ST elevation [place] (NSTEMI) Cough Knee pain, bilateral Vertigo HTN (hypertension) Osteoarthritis Kidney cysts Liver cyst Left nephrolithiasis Lumbar radiculopathy Neutropenia Female bladder prolapse Hyperlipidemia Hypothyroidism Anxiety Annual physical exam Surgical History No pertinent past surgical history Family History Father No problems noted. Mother Hypertension Social History Household Members: None Housing: House Do you presently have visiting nurse or other home services: No Alcohol intake: current Alcohol intake frequency: does not drink Alcohol type: beer Patient Tobacco Use Status: Former Tobacco user Tobacco use type: Cigarette Years Smoked: 20 e-Cigarette/Vaping Use: Never Used service: No Current occupational status: retired Cognitive needs: No Hearing needs: No Vision needs: Yes Questionnaire Thrive Questionnaire Date Thrive assessed: 10/15/24 I am a: Patient What is your living situation today?: I have a steady place to live Within the past 12 months, did the food you bought not last and you didn't have the money to get more?: Never true Within the past 12 months, did you worry whether your food would run out before you got money to buy more?: Never true Do you have trouble paying for medicines?: No Do you have trouble getting transportation to medical appointments?: No Do you have trouble paying your heating and electricity bill?: No Do you have trouble taking care of your child, family member or friend?: No Do you have trouble with day-to-day activities such as bathing, preparing meals, shopping, managing finances, etc.?: No Are you currently unemployed and looking for a job?: No Are you interested in more education?: No Please select the resources that you would like help with: None Currently or been in a relationship where the following occur: I choose not to answer THRIVE Score: 0 SIOMARA-7 AMB Questionnaire SIOMARA-7 Date SIOMARA - 7 assessed: 06/11/25 Source: Developed by Drs. Jeff Salter, Korin Chinchilla, Cam Nathan and colleagues, with an educational nancie from [employer]. Review of Systems Const All systems reviewed & are unremarkable except as noted in HPI and below Eyes Reports no additional complaints ENT Reports no additional complaints Resp Reports no additional complaints GI Reports no additional complaints Reports no additional complaints Musc Reports no additional complaints Physical exam (Primary Care) Vital Signs: Last Vital Signs Pulse 85 07/30/25 13:41 Resp 16 07/30/25 13:41 BP 130/72 07/30/25 13:41 Pulse Ox 98 07/30/25 13:41 Oxygen Delivery Method Room Air 07/30/25 13:41 BMI result Body Mass Index 24.4 Tobacco/Smoking Status: Tobacco use Status Tobacco use date assessed 07/30/25 07/30/25 13:47 Patient Tobacco Use Status Former Tobacco user 07/30/25 13:47 Tobacco use type Cigarette 07/30/25 13:47 e-Cigarette/Vaping Use Never Used 07/30/25 13:47 Thrive Assessment: Date of Thrive Assessment Date Thrive assessed 10/15/24 07/30/25 13:47 Currently or been in a relationship where the following occur: I choose not to answer Const General: no acute distress HENMT Mouth: Normal oral and palatal mucosa present Neck Neck: Yes no lymphadenopathy and Yes supple Resp Effort & Inspection: normal respiratory effort Auscultation: clear to auscultation bilaterally Cardio Rhythm: regular rhythm Heart sounds: S1 normal heart sound present and S2 normal heart sound present Coding Level of Care Code Est Pt Level 4 (68276) Diagnoses Hypothyroidism E03.9 Hyperlipidemia E78.5 HTN (hypertension) I10 Assessment & Plan Assessment & Plan (1) Hypothyroidism: Code(s): E03.9 - Hypothyroidism, unspecified Category: Medical Plan: Continue levothyroxine (2) Hyperlipidemia: Code(s): E78.5 - Hyperlipidemia, unspecified Category: Medical Plan: Continue rosuvastatin (3) HTN (hypertension): Comment: BP goal less than 130/80 Code(s): I10 - Essential (primary) hypertension Category: Medical Plan: Continue current medications follow-up in December with a fasting labs before Orders: Orders Complete Blood Count Auto Diff 5 Months E03.9 - Hypothyroidism, unspecified, E78.5 - Hyperlipidemia, unspecified, I10 - Essential (primary) hypertension [place]. Panel Fast 5 Months E03.9 - Hypothyroidism, unspecified, E78.5 - Hyperlipidemia, unspecified, I10 - Essential (primary) hypertension TSH reflex Free T4 5 Months E03.9 - Hypothyroidism, unspecified, E78.5 - Hyperlipidemia, unspecified, I10 - Essential (primary) hypertension
== END 2025-07-30 14:11 | disposition home or self-care (01) ==
LOC: HO.HMCC 13:37
PROVIDERS: PCP Internal Medicine; Visit Provider Internal Medicine
DX: E03.9 Hypothyroidism, unspecified (principal); E78.5 Hyperlipidemia, unspecified; I10 Essential (primary) hypertension

== ENCOUNTER → 2025-07-30 13:36 | Outpatient (BNVA) | payer MEDICARE, SELFPAY | PROVIDERS: PCP Internal Medicine; Visit Provider Internal Medicine | DX: I10 Essential (primary) hypertension (principal); E03.9 Hypothyroidism, unspecified; E78.5 Hyperlipidemia, unspecified | CPT/HCPCS: 99212 ==